=== PATIENT | female | born 1960 | race Caucasian/White ===

== ENCOUNTER → 2020-02-13 14:00 | Outpatient (BNVA) | payer OTHER, SELFPAY | PROVIDERS: Family Provider Family Medicine; PCP Family Medicine; Visit Provider Obstetrics & Gynecology | DX: Z01.419 Encounter for gynecological examination (general) (routine) without abnormal findings (principal); R87.612 Low grade squamous intraepithelial lesion on cytologic smear of cervix (LGSIL); B37.2 Candidiasis of skin and nail; N39.46 Mixed incontinence | CPT/HCPCS: 88175 ==

== ENCOUNTER 2020-05-18 10:50 | Outpatient (CLI) | payer OTHER, SELFPAY ==
--- NOTE | 2020-05-18 10:56 | XR_ITS ---
WS: [id number] ANKLE LEFT TECHNIQUE: 3 views of the left ankle CLINICAL INFORMATION: ANKLE INJURY LEFT COMPARISON: None. FINDINGS: Normal ankle mortise. Talar dome is normal. No visualized ankle fractures. Moderate soft tissue edema Nondisplaced fracture involving the fifth metatarsal base. This was present on the radiograph 2008 IMPRESSION: 1. Nondisplaced fracture involving the fifth metatarsal base. This is present on the foot radiograph in 2008. This can be further evaluated with foot x-ray 2. Diffuse soft tissue edema about the ankle mortise.
--- NOTE | 2020-05-18 13:02 | XR_ITS ---
WS: [id number] FOOT LEFT TECHNIQUE: 3 views of the left foot CLINICAL INFORMATION: ANKLE INJURY LEFT COMPARISON: 2007 FINDINGS: Previously partially healed fracture involving the base of the fifth metatarsal. Associated callus fo rmation. Persistent fracture line visualized in the lateral view likely chronic incomplete healing. XR/XR foot LT min 3V* [id number] IMPRESSION: Chronic appearing incompletely healed fracture involving the base of fifth meta tarsal with callus formation. No definite new fractures.
== END 2020-05-18 10:51 | disposition home or self-care (01) ==
PROVIDERS: Family Provider Family Medicine; PCP Family Medicine; Visit Provider Nurse Practitioner Family
DX: S92.355A Nondisplaced fracture of fifth metatarsal bone, left foot, initial encounter for closed fracture; X58.XXXA Exposure to other specified factors, initial encounter
CPT/HCPCS: 73610; 73630

== ENCOUNTER → 2020-09-06 14:44 | Outpatient (BNVA) | payer OTHER, SELFPAY | PROVIDERS: Family Provider Family Medicine; PCP Family Medicine; Visit Provider Internal Medicine | DX: Z11.59 Encounter for screening for other viral diseases (principal) | CPT/HCPCS: 87635 ==

== ENCOUNTER 2020-09-10 08:10 | Outpatient (CLI) | payer OTHER, SELFPAY ==
--- NOTE | 2020-09-10 09:02 | NMCV_ITS ---
NM arnulfo perf SPECT r/s* [id number] Roxanne Lee Age: 59 Gender: F : 1960 Exam Date: 09/10/2020 09:02 Ordering Phys: Usman Sandhu M.D ([email or web address]) Technologist: KALPANA Joaquin Exam Location: [facility] Indications: Chest pain STRESS TEST Please see separate stress test report in [facility] for full findings IMAGE PROTOCOL Rest/Stress 1 Lexiscan Day Radiopharmaceutical Dose (mCi) Administration Site Administered by Rest: Tc-99m 10.9 IV KALPANA Aguilar Sestamibi Stress:Tc-99m 33.0 IV KALPANA Joaquin Sestamibi Rest: 10-Sep-2020 60 Discovery 630 Stress: 10-Sep-2020 45 Discovery 630 0.4mg Lexiscan. Images obtained in supine and prone position. SPECT RESULTS Technical Quality: Good Raw Data Analysis: Breast attenuation, Soft tissue attenuation Image Corrections: No attenuation or motion correction applied Summed Stress Score: 0 Summed Rest Score: 1 Summed Difference Score: 0 PERFUSION FINDINGS SPECT images demonstrate homogeneous tracer distribution throughout the myocardium. FUNCTIONAL RESULTS (calculated via Gated SPECT) Stress Image LV EF (%): 81 Stress EDV (mL):53 TID: 1.04 Stress ESV (mL):10 FUNCTIONAL FINDINGS: There is normal left ventricular systolic function. IMPRESSIONS 1. Myocardial perfusion imaging is normal with no reversible ischemia noted 2. Normal LV systolic function Usman Sandhu MD (Electronically Signed) Final Date: 13 September 2020 09:09 S
--- NOTE | 2020-09-10 09:02 | ECG_ITS ---
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 Interpretive Statements NAME OF STUDY: LEXISCAN SESTAMIBI STRESS TEST INDICATION: [Chest Pain, ] Procedure: At the baseline the blood pressure was 175/111 mmHg, with a heart rate of 96 bpm. The electrocardiogram showed normal sinus rhythm, normal axis with normal ST and T's. The Lexiscan was infused over the period Of 20 seconds. A total of 0.4 mg of Lexiscan was infused. The stress phase was continued for a total of 5 minutes. Heart rate at the end of stress phase was 108 bpm, with a blood pressure of 200/99 mmHg. The EKG at the peak infusion revealed sinus tachycardia with no significant ST-T wave changes. Sestamibi was injected 20 seconds after Lexiscan infusion. Blood pressure at the end of recovery phase was 175/99 mmHg, with a heart rate of 103 bpm. EKG showed sinus tachycardia without significant ST???T wave changes. Conclusion: 1. Normal EKG response to Lexiscan infusion. 2. No Lexiscan induced chest pain or cardiac arrhythmia. 3. Hypertensive response and normal heart rate response. 4. Sestamibi/sestamibi perfusion scan pending; see separate report. Electronically Signed On 09-11-2020 19:45:39 CDT by Usman Sandhu M.D. [id number]
[2020-09-10 09:03] VITALS: BMI 36.3
[2020-09-10] MEDS: regadenoson 0.4 Mg/5 ml Syringe IVP (10:21)
[2020-09-10 10:45] VITALS: BP 175/99; PULSE 103
== END 2020-09-10 08:11 | disposition home or self-care (01) ==
LOC: CDL 08:15
PROVIDERS: PCP Family Medicine; Visit Provider Internal Medicine
DX: R07.9 Chest pain, unspecified (principal); I65.29 Occlusion and stenosis of unspecified carotid artery
CPT/HCPCS: 78452; 93017; A9500; J2785

== ENCOUNTER → 2020-09-13 14:51 | Outpatient (BNVA) | payer OTHER, SELFPAY | PROVIDERS: PCP Family Medicine; Visit Provider Internal Medicine | DX: E03.9 Hypothyroidism, unspecified (principal); E11.22 Type 2 diabetes mellitus with diabetic chronic kidney disease; E11.65 Type 2 diabetes mellitus with hyperglycemia; E53.8 Deficiency of other specified B group vitamins; E78.00 Pure hypercholesterolemia, unspecified; I10 Essential (primary) hypertension; R10.10 Upper abdominal pain, unspecified | CPT/HCPCS: 99205 ==

== ENCOUNTER 2020-09-16 09:19 | Outpatient (CLI) | payer OTHER, SELFPAY ==
[2020-09-16 10:21] LABS: Estmated Average Glucose 232; Hemoglobin A1C 9.7 % (4.0-6.0)
[2020-09-16 10:28] LABS: Creatinine Urine, Random 164 mg/dL (28-217); Microalbum Creatinine Ratio Ur 12 mg/dL (0-20); Microalbumin Random Urine 2 ug/dL (0-20)
[2020-09-16 10:33] LABS: Alanine Aminotransferase 33 U/L (0-33); Albumin Level 4.4 g/dL (3.5-5.2); Alkaline Phosphatase 123 IU/L (35-105); Anion Gap 18.2 (5-19); Aspartate Amino Transferase 22 U/L (0-32); Blood Urea Nitrogen 33 mg/dL (6-20); Calcium 9.7 mg/dL (8.5-10.5); Carbon Dioxide 26 mmol/L (22-29); Chloride 96 mmol/L (98-107); Globulin 2.7 g/dL (1.3-4.6); Glomerular Filtration Rate 46.3 mL/min (90-130); Glucose 318 mg/dL (65-115); Lipase 57 U/L (13-60); Osmolality Calculated 299 mOsm/kg (285-295); Potassium 5.2 mmol/L (3.5-5.1); Sodium 135 mmol/L (136-145); Thyroid Stimulating Hormone 0.86 uIU/mL (0.27-4.20); Total Bilirubin 0.2 mg/dL (0.15-1.2); Total Protein 7.1 g/dL (6.6-8.7)
[2020-09-16 11:07] LABS: Folate Level > 20.0 ng/mL (4.8-37.3); Free T4 Free Thyroxine 1.56 ng/dL (0.82-1.77); Vitamin B12 > 2000 pg/mL (232-1245)
== END 2020-09-16 09:20 | disposition home or self-care (01) ==
LOC: LAB 09:22
PROVIDERS: PCP Family Medicine; Visit Provider Internal Medicine
DX: E11.9 Type 2 diabetes mellitus without complications (principal); E03.9 Hypothyroidism, unspecified; E53.8 Deficiency of other specified B group vitamins; E78.00 Pure hypercholesterolemia, unspecified; I10 Essential (primary) hypertension; R10.9 Unspecified abdominal pain
CPT/HCPCS: 36415; 80053; 82044; 82607; 82746; 83036; 83690; 84439; 84443

== ENCOUNTER 2020-11-17 12:05 | Outpatient (CLI) | payer OTHER, SELFPAY ==
--- NOTE | 2020-11-17 12:09 | MM_ITS ---
WS: [id number] SCREENING DIGITAL MAMMOGRAM WITH CAD HISTORY: SCREENING COMPARISON: 10/31/2019 and 09/24/2018 Bilateral CC and MLO views submitted. Computer aided detection analyzed. Breast composition: The breasts are almost entirely fatty. No suspicious masses, microcalcifications or architectural distortion. MM/[place] [id number] IMPRESSION: BI-RADS: 1-Negative FOLLOW UP: 1 Year Follow-up
== END 2020-11-17 12:06 | disposition home or self-care (01) ==
LOC: RADSHAW 12:07
PROVIDERS: PCP Family Medicine; Visit Provider Obstetrics & Gynecology
DX: Z12.31 Encounter for screening mammogram for malignant neoplasm of breast (principal)
CPT/HCPCS: 77067

== ENCOUNTER → 2020-12-13 14:29 | Outpatient (BNVA) | payer OTHER, SELFPAY | PROVIDERS: PCP Family Medicine; Visit Provider Internal Medicine | DX: E03.9 Hypothyroidism, unspecified (principal); E11.22 Type 2 diabetes mellitus with diabetic chronic kidney disease; E11.65 Type 2 diabetes mellitus with hyperglycemia; E78.00 Pure hypercholesterolemia, unspecified | CPT/HCPCS: 95251; 99214 ==

== ENCOUNTER 2021-01-25 14:24 | Emergency (ER) | payer OTHER, SELFPAY ==
[2021-01-25 14:34] VITALS: BP 146/78; PULSE 93; RESP 16; TEMP 36.3; O2SAT 99; BMI 36.6
--- NOTE | 2021-01-25 14:49 | ECG_ITS ---
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1960 Requested By: Saad Zendejas I Order Number: [id number] Reading MD: JULIA CHAUHAN Measurements Intervals [place] Rate: 89 P: 19 PA: 148 QRS: -12 QRSD: 81 T: 30 QT: 322 QTc: 392 Interpretive Statements SINUS RHYTHM LOW QRS VOLTAGE IN PRECORDIAL LEADS [QRS DEFLECTION < 1.0 mV IN CHEST LEADS] POSSIBLE ANTERIOR MYOCARDIAL INFARCTION [30 ms Q WAVE IN V3/V4, OR R < 0.2 mV IN V4], OF INDETERMINATE AGE No previous ECG available for comparison Electronically Signed On 01-25-2021 19:52:37 BUSINESS CONSULT by JULIA CHAUHAN [email or web address] [email or web address]'s daughters [facility] [id number] f
--- NOTE | 2021-01-25 16:07 | PC.NURSE ---
PT UPDATED ON WAIT TIME
--- NOTE | 2021-01-25 17:16 | ECG_ITS ---
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1960 Requested By: Rebeca Maier Order Number: [id number] Reading MD: JULIA CHAUHAN Measurements Intervals [place] Rate: 99 P: 42 MI: 160 QRS: 60 QRSD: 81 T: 33 QT: 323 QTc: 415 Interpretive Statements SINUS RHYTHM LOW QRS VOLTAGE IN PRECORDIAL LEADS [QRS DEFLECTION < 1.0 mV IN CHEST LEADS] POSSIBLE ANTERIOR MYOCARDIAL INFARCTION , PROBABLY OLD [30 ms Q WAVE IN V3/V4, OR R < 0.2 mV IN V4] Compared to ECG 01/25/2021 14:42:48 No significant changes Electronically Signed On 01-25-2021 20:00:39 PRIVATE SECTOR EXECUTIVE by JULIA CHAUHAN [id number]
[2021-01-25 18:22] VITALS: PULSE 101; RESP 19; O2SAT 98; O2SAT 99
--- NOTE | 2021-01-25 18:40 | W.ED.GENADLT ---
HPI - General Adult General: Chief complaint: General Medical Stated complaint: SENT BY DR CH/POTASSIUM HIGH Time Seen by Provider: 01/25/21 17:51 Source: patient Mode of arrival: ambulatory Limitations: no limitations History of Present Illness: HPI narrative: 60-year-old female who states she had a potassium checked 1 month ago it was 5.2. 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 She sent her here to be checked further. Patient has no complaints and states she has been feeling fine. She said no vomiting or diarrhea. Denies any pain anywhere. Associated symptoms: Deny chest pain, dyspnea, headache(s), nausea, rash or vomiting Review of Systems Const: Denies: fever(s), chills, body aches or change in appetite Eyes: Denies: blurry vision or eye discomfort ENMT: Denies: throat pain or dental pain Card: Denies: chest pain Resp: Denies: dyspnea GI: Denies: abdominal pain, nausea, vomiting or diarrhea : Denies: dysuria Musc: Denies: neck pain or back pain Skin/Breast: Denies: rash Neuro: Denies: headache(s) Psych: Denies: depression Shar/Lymph: Denies: easy bruising All/Imm: Denies: urticaria PFSH ED PFSH: Medical History Acquired hypothyroidism Carotid stenosis 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 Surgical History History of cholecystectomy (~01/1999) Laparoscopic. Performed by Dr. Dailey at [facility] in [place], [place]. Family History Father Diabetes Hypertension Stroke Hypercholesteremia Social History Smoking and tobacco status: never smoked Alcohol intake: never Physical Exam Const: COMMON NORMALS: no acute distress, patient oriented x3 and healthy appearing HENMT: COMMON NORMALS: normocephalic and atraumatic HEAD & SCALP: normocephalic and atraumatic Eye: COMMON NORMALS: Equal, round and reactive pupils present and EOMs intact bilaterally PUPIL: Yes Equal, round and reactive pupils present Neck/C-Spine: COMMON NORMALS: full ROM and supple Chest: COMMONS NORMALS: normal inspection of the chest and normal palpation of entire chest wall Resp: COMMON NORMALS: normal respiratory effort, No retractions, No use of accessory muscles and clear to auscultation bilaterally AUSCULTATION: clear to auscultation bilaterally Cardio: COMMON NORMALS: regular rate, regular rhythm and No murmurs present (Cardio) RATE: regular rate RHYTHM: regular rhythm GI: COMMON NORMALS: Normal to inspection, nondistended, normoactive bowel sounds present, Soft to palpation, non-tender and no masses PALPATION: Yes Soft to palpation Extremity: COMMON NORMALS: normal to inspection and full ROM Neuro: COMMON NORMALS: patient oriented x3, moves all extremities and no focal motor deficits Psych: COMMON NORMALS: mental status grossly normal, Normal thought process present and cooperative THOUGHT PROCESS: Normal thought process present Skin: COMMON NORMALS: no rashes or lesions noted and no wounds GENERAL SKIN EXAM: no rashes or lesions noted Course Vital Signs: Vital signs: Vital Signs Temperature 97.3 F L 01/25/21 14:34 Pulse Rate 101 H 01/25/21 18:22 Respiratory Rate 19 H 01/25/21 18:22 Blood Pressure 146/78 01/25/21 14:34 Pulse Oximetry 99 01/25/21 18:22 MDM - General Adult MDM Narrative: Medical decision making narrative: 22 presents here with hyperkalemia in office today. I believe is likely lab error as her potassium here is 4.4. She has no kidney issues. She is has no medical complaints. She is well-appearing here and is stable for discharge is to follow-up with her PCP as scheduled and return if worsening. Lab Data: Labs: Lab Results 01/25/21 01/25/21 Range/Units 18:20 18:20 WBC 9.3 (4.0-10.0) 10^3/ uL RBC 5.06 (4.1-5.3) 10^6/u L Hgb 14.3 (11.5-15.3) g/dL Hct 44.0 (37.0-47.0) % MCV 87.0 (81-99) fL MCH 28.3 (28.0-34.0) pg MCHC 32.5 (30.0-36.0) g/dL RDW 15.7 H (12.1-15.1) % Plt Count 293 (130-400) 10^3/c mm MPV 10.3 (7.4-10.4) fL Neut % (Auto) 61.1 % Lymph % (Auto) 25.3 % [place] % (Auto) 10.9 % Eos % (Auto) 1.9 % Baso % (Auto) 0.5 % Neut # (Auto) 5.70 (1.8-7.7) 10^3/u L Lymph # (Auto) 2.4 (0.8-4.8) 10^3/u L [place] # (Auto) 1.0 H (0.2-0.9) 10^3/u L Eos # (Auto) 0.2 (0.0-0.8) 10^3/u L Baso # (Auto) 0.1 (0.0-0.1) 10^3/u L Nucleated RBC % (a uto) 0 % Nucleated RBCs # 0.0 /100WBC Sodium 137 (136-145) mmol/L Potassium 4.4 (3.5-5.1) mmol/L Chloride 97 L (98-107) mmol/L Carbon Dioxide 27 (22-29) mmol/L Anion Gap 17.4 (5-19) BUN 31 H (6-20) mg/dL Creatinine 1.2 H (0.5-0.9) mg/dL GFR Calculation 46.1 L (90-130) mL/min Glucose 109 (65-115) mg/dL Calculated Osmolal ity 291 (285-295) mOsm/k g Calcium 10.5 (8.5-10.5) mg/dL Total Bilirubin 0.3 (0.15-1.2) mg/dL AST 18 (0-32) U/L ALT 22 (0-33) U/L Alkaline Phosphata se 85 (35-105) IU/L Total Protein 7.6 (6.6-8.7) g/dL Albumin 4.9 (3.5-5.2) g/dL Globulin 2.7 (1.3-4.6) g/dL EKG Data^: EKG 1: Attestation: I personally reviewed and interpreted this EKG as follows: EKG interpretation date: 01/25/21 EKG interpretation time: 14:42 Interpretation: nsr hr [address] or t wave abnormalities qrs 81 qtc 368 Discharge Plan Discharge Patient Disposition: Home Clinical Impression: Abnormal laboratory test Condition: Stable Prescriptions: No Action glimepiride 4 mg tablet 4 mg PO DAILY Qty: 90 RF: 3 fluconazole 150 mg tablet 150 mg PO .MONTHLY Qty: 3 RF: 4 oxybutynin chloride 10 mg tablet extended release 24hr 10 mg PO QDAY Qty: 90 RF: 4 nystatin 100,000 unit/gram powder 1 applic TOPICAL BID Qty: 60 RF: 12 spironolacton-hydrochlorothiaz [Aldactazide] 25-25 mg tablet 1 tab PO QDAY RF: 0 zolpidem 10 mg tablet, sublingual 10 mg SUBLINGUAL .BEDTIME RF: 0 alprazolam 0.25 mg tablet 0.25 mg PO Q6H PRNRF: 0 cyanocobalamin (vitamin B-12) [Vitamin B-12] 1,000 mcg tablet extended release 1,000 mcg PO QDAY RF: 0 aspirin 81 mg tablet,delayed release (DR/EC) 81 mg PO QDAY RF: 0 Women's 50 Plus Multivitamin 400 mcg-500 mg calcium-20 mcg tablet PO DAILY RF: 0 NUFLO tablet PO DAILY RF: 0 lisinopril 40 mg tablet 40 mg PO QDAY RF: 0 CALCIUM PO DAILY RF: 0 VITAMIN C PO DAILY RF: 0 VITAMIN D PO DAILY RF: 0 omeprazole 20 mg capsule,delayed release(DR/EC) 20 mg PO BID RF: 0 metformin 850 mg tablet 850 mg PO DAILY RF: 0 (DME) Dexcom G6 Transmitter Device See Rx Instructions .ROUTE .MEDSUPPLY Qty: 1 RF: 3 (DME) Dexcom G6 Sensor Device See Rx Instructions .ROUTE .MEDSUPPLY Qty: 9 RF: 3 nitroglycerin 0.4 mg tablet, sublingual 0.4 mg SUBLINGUAL Q5M PRN (Reason: chest pain) Qty: 60 RF: 2 Ozempic 0.25 mg or 0.5 mg(2 mg/1.5 mL) pen injector 1 mg SUBCUT .once weekly Qty: 12 RF: 3 atorvastatin 80 mg tablet 80 mg PO .BEDTIME Qty: 90 RF: 3 levothyroxine [Synthroid] 100 mcg tablet 100 mcg PO QDAY Qty: 90 RF: 3 Jardiance 10 mg tablet 20 mg PO DAILY Qty: 180 RF: 3 Discharge Orders: Discharge ED (Routine); Ordered 01/25/21 Ordered By: Gregory Howard Referrals: Rocael Montaño, [Primary Care Provider] - 1-3 days Discharge Diet: Advance as tolerated Discharge Activity: Resume usual activity Patient Instructions: Hyperkalemia (ED) Coding Level of Care Code ED Regulatory Services Consultant for Luis Mg Fwd Exam Comprehensive
[2021-01-25 18:47] LABS: Basophils # 0.1 10^3/uL (0.0-0.1); Basophils % 0.5 %; Eosinophils # 0.2 10^3/uL (0.0-0.8); Eosinophils % 1.9 %; Hemoglobin 14.3 g/dL (11.5-15.3); Lymphocytes # 2.4 10^3/uL (0.8-4.8); Lymphocytes % 25.3 %; Mean Corpuscular HGB Conc 32.5 g/dL (30.0-36.0); Mean Corpuscular Hemoglobin 28.3 pg (28.0-34.0); Mean Platelet Volume 10.3 fL (7.4-10.4); Monocytes % 10.9 %; Neutrophils % 61.1 %; Nucleated Red Blood Cells % 0 %; Platelet Count 293 10^3/cmm (130-400); Red Blood Count 5.06 10^6/uL (4.1-5.3); Red Cell Distribution Width 15.7 % (12.1-15.1); White Blood Count 9.3 10^3/uL (4.0-10.0)
[2021-01-25 19:02] LABS: Alanine Aminotransferase 22 U/L (0-33); Albumin Level 4.9 g/dL (3.5-5.2); Alkaline Phosphatase 85 IU/L (35-105); Anion Gap 17.4 (5-19); Aspartate Amino Transferase 18 U/L (0-32); Blood Urea Nitrogen 31 mg/dL (6-20); Calcium 10.5 mg/dL (8.5-10.5); Carbon Dioxide 27 mmol/L (22-29); Chloride 97 mmol/L (98-107); Globulin 2.7 g/dL (1.3-4.6); Glomerular Filtration Rate 46.1 mL/min (90-130); Glucose 109 mg/dL (65-115); Osmolality Calculated 291 mOsm/kg (285-295); Potassium 4.4 mmol/L (3.5-5.1); Sodium 137 mmol/L (136-145); Total Bilirubin 0.3 mg/dL (0.15-1.2); Total Protein 7.6 g/dL (6.6-8.7)
[2021-01-25 19:40] VITALS: BP 108/83; PULSE 94; RESP 18; O2SAT 99
== END 2021-01-25 19:40 | disposition home or self-care (01) ==
PROVIDERS: Nurse Practitioner Family; Emergency Provider Emergency Medicine; PCP Family Medicine
DX: R79.9 Abnormal finding of blood chemistry, unspecified (principal); Z79.82 Long term (current) use of aspirin; Z79.84 Long term (current) use of oral hypoglycemic drugs; I10 Essential (primary) hypertension
CPT/HCPCS: 80053; 85025; 93005; 99283

== ENCOUNTER → 2021-02-18 14:15 | Outpatient (BNVA) | payer OTHER, SELFPAY | PROVIDERS: PCP Family Medicine; Visit Provider Obstetrics & Gynecology | DX: R87.612 Low grade squamous intraepithelial lesion on cytologic smear of cervix (LGSIL) (principal); B37.2 Candidiasis of skin and nail; R32 Unspecified urinary incontinence | CPT/HCPCS: 88175 ==

== ENCOUNTER → 2021-04-19 11:48 | Outpatient (BNVA) | payer OTHER, SELFPAY | PROVIDERS: PCP Family Medicine; Visit Provider Podiatrist Foot & Ankle Surgery | DX: M21.42 Flat foot [pes planus] (acquired), left foot (principal); M79.672 Pain in left foot | CPT/HCPCS: 73610; 73630 ==

== ENCOUNTER 2021-07-06 07:07 | Outpatient (CLI) | payer OTHER, SELFPAY ==
[2021-07-06 07:30] VITALS: BP 138/76; PULSE 104; RESP 20; TEMP 36.6; O2SAT 98
[2021-07-06 08:41] VITALS: BP 116/73; PULSE 104; TEMP 36.7; O2SAT 97
== END 2021-07-06 07:08 | disposition home or self-care (01) ==
LOC: OPS 07:10
PROVIDERS: PCP Family Medicine; Visit Provider Clinical Nurse Specialist Adult Health
DX: U07.1 COVID-19 (principal)
CPT/HCPCS: 96365

== ENCOUNTER 2021-12-19 16:07 | Outpatient (CLI) | payer OTHER, SELFPAY ==
--- NOTE | 2021-12-19 16:11 | XR_ITS ---
WS: [id number] ELBOW RIGHT TECHNIQUE: 3 views of the right elbow CLINICAL INFORMATION: ELBOW PAIN,RIGHT COMPARISON: 011 FINDINGS: Mild soft tissue edema. Small intra-articular loose fragment measuring 3 mm is new since 2010. Recomm end further evaluation with CT to assess for small occult fracture. This may represent a small corono id process fracture but indeterminant. XR/XR elbow RT min 3V* [id number] IMPRESSION: Small intra-articular bony fragment measuring 3 mm suspicious for tiny nondispl aced fracture fragment. Recommend further evaluation with CT.
== END 2021-12-19 16:08 | disposition home or self-care (01) ==
LOC: RAD 16:08
PROVIDERS: PCP Family Medicine; Visit Provider Electrodiagnostic Medicine
DX: M25.521 Pain in right elbow (principal); W19.XXXA Unspecified fall, initial encounter
CPT/HCPCS: 73080

== ENCOUNTER 2021-12-20 13:25 | Outpatient (CLI) | payer OTHER, SELFPAY ==
--- NOTE | 2021-12-20 13:44 | CT_ITS ---
WS: [id number] NONCONTRAST CT OF THE RIGHT ELBOW TECHNIQUE: Noncontrast CT of the right elbow with coronal and sagittal reformatted images. CLINICAL INFORMATION: NONDISPLACED FX/R ELBOW PAIN COMPARISON: Radiograph December 19, 2021 DLP: 97.[address] scans at [facility] use at least one of these dose optimization techniques: automated e xposure control; mA and/or kV adjustment per patient size (includes targeted exams where dose is matc hed to clinical indication); or iterative reconstruction. FINDINGS: Moderate joint effusion with distention of the anterior and posterior fat pads. Soft tissue edema ove rlying the olecranon. Olecranon enthesophyte. Again seen is the tiny intra-articular avulsion as seen on the recent radiograph. This is adjacent to the coronoid process of the ulna compatible with a tin y avulsion. This is interposed between the radial head and coronoid process. Tiny avulsion measures 2 mm. In addition, there is a subtle nondisplaced supracondylar and condylar fracture extending through the olecranon fossa with visualized fracture lines. No significant displacement. Nondisplaced fracture e xtends through the olecranon fossa and extends medially and laterally into the epicondyles. No defini te involvement of the articular surface. Radial head appears normal. IMPRESSION: 1. 2 mm tiny avulsion from the coronoid process seen on the recent radiograph. This is interposed be tween the radial head and coronoid process. 2. Additional subtle nondisplaced fracture involving the supracondylar and condylar humerus extendin g into the epicondyles bilaterally. This traverses the olecranon fossa. No displacement. 3. Condylar fracture does not appear to involve the articular surface. 4. Moderate joint effusion.
== END 2021-12-20 13:26 | disposition home or self-care (01) ==
LOC: RAD 13:27
PROVIDERS: PCP Family Medicine; Visit Provider Electrodiagnostic Medicine
DX: S52.044A Nondisplaced fracture of coronoid process of right ulna, initial encounter for closed fracture (principal); S42.414A Nondisplaced simple supracondylar fracture without intercondylar fracture of right humerus, initial encounter for closed fracture; W19.XXXA Unspecified fall, initial encounter; M25.421 Effusion, right elbow
CPT/HCPCS: 73200

== ENCOUNTER → 2021-12-21 10:14 | Outpatient (BNVA) | payer OTHER, SELFPAY | PROVIDERS: PCP Family Medicine; Referring Provider Family Medicine; Visit Provider Specialist | DX: M25.521 Pain in right elbow (principal) | CPT/HCPCS: 73080 ==

== ENCOUNTER 2021-12-21 14:26 | Outpatient (CLI) | payer OTHER, SELFPAY | END 2021-12-21 14:27 | disposition home or self-care (01) | LOC: SPT 14:27 | PROVIDERS: PCP Family Medicine; Visit Provider Specialist | DX: Z46.89 Encounter for fitting and adjustment of other specified devices (principal); S42.401D Unspecified fracture of lower end of right humerus, subsequent encounter for fracture with routine healing; X58.XXXD Exposure to other specified factors, subsequent encounter | CPT/HCPCS: 97760; L3761 ==

== ENCOUNTER → 2022-01-09 15:35 | Outpatient (BNVA) | payer OTHER, SELFPAY | PROVIDERS: PCP Family Medicine; Visit Provider Specialist | DX: Z47.89 Encounter for other orthopedic aftercare (principal); S52.201D Unspecified fracture of shaft of right ulna, subsequent encounter for closed fracture with routine healing; S42.411D Displaced simple supracondylar fracture without intercondylar fracture of right humerus, subsequent encounter for fracture with routine healing; W18.30XD Fall on same level, unspecified, subsequent encounter | CPT/HCPCS: 73080 ==

== ENCOUNTER → 2022-02-06 15:55 | Outpatient (BNVA) | payer OTHER, SELFPAY | PROVIDERS: PCP Family Medicine; Visit Provider Specialist | DX: M25.521 Pain in right elbow (principal); S52.201A Unspecified fracture of shaft of right ulna, initial encounter for closed fracture; S42.411A Displaced simple supracondylar fracture without intercondylar fracture of right humerus, initial encounter for closed fracture; X58.XXXA Exposure to other specified factors, initial encounter | CPT/HCPCS: 73080 ==

== ENCOUNTER → 2022-02-20 09:34 | Outpatient (BNVA) | payer OTHER, SELFPAY | PROVIDERS: PCP Family Medicine; Visit Provider Obstetrics & Gynecology | DX: Z01.419 Encounter for gynecological examination (general) (routine) without abnormal findings (principal); B37.2 Candidiasis of skin and nail; R32 Unspecified urinary incontinence | CPT/HCPCS: 87624 ==

== ENCOUNTER 2022-03-14 08:13 | Outpatient (CLI) | payer OTHER, SELFPAY ==
--- NOTE | 2022-03-14 08:22 | MM_ITS ---
WS: [id number] VIEWS: MLO and CC views both breasts. 3D digital tomosynthesis is also included in this exam. Comparison made with prior exam of 07/02/2015, 07/25/2016, 09/18/2017, 09/24/2018, 11/17/2020.. Findings: There was no sign of mass, architectural distortion or suspicious calcification in either breast. Fa tty MM/[place] [id number] Impression: BI-RADS: 2-Benign FOLLOW-UP: 1 Year Follow-up This mammogram was also analyzed by the Computer Aided Detection System R2 Imag e Placement Director.
== END 2022-03-14 08:14 | disposition home or self-care (01) ==
LOC: RADSHAW 08:15
PROVIDERS: PCP Family Medicine; Visit Provider Obstetrics & Gynecology
DX: Z12.31 Encounter for screening mammogram for malignant neoplasm of breast (principal)
CPT/HCPCS: 77063; 77067

== ENCOUNTER → 2023-01-04 11:23 | Outpatient (BNVA) | payer OTHER, SELFPAY | PROVIDERS: PCP Family Medicine; Visit Provider Family Medicine | DX: G47.00 Insomnia, unspecified (principal); M19.90 Unspecified osteoarthritis, unspecified site; F41.9 Anxiety disorder, unspecified; E53.8 Deficiency of other specified B group vitamins; I10 Essential (primary) hypertension; E78.00 Pure hypercholesterolemia, unspecified; E03.9 Hypothyroidism, unspecified; E11.649 Type 2 diabetes mellitus with hypoglycemia without coma; E11.22 Type 2 diabetes mellitus with diabetic chronic kidney disease; E11.65 Type 2 diabetes mellitus with hyperglycemia; R10.9 Unspecified abdominal pain | CPT/HCPCS: 80053; 80061; 82607; 83036; 84443; 85025 ==

== ENCOUNTER → 2023-02-26 07:51 | Outpatient (BNVA) | payer OTHER, SELFPAY | PROVIDERS: PCP Family Medicine; Visit Provider Obstetrics & Gynecology | DX: Z01.419 Encounter for gynecological examination (general) (routine) without abnormal findings (principal); B37.2 Candidiasis of skin and nail; R32 Unspecified urinary incontinence | CPT/HCPCS: 87624 ==

== ENCOUNTER 2023-03-16 08:00 | Outpatient (CLI) | payer OTHER, SELFPAY ==
--- NOTE | 2023-03-16 08:55 | MM_ITS ---
WS: [id number] . BILATERAL SCREENING DIGITAL TOMOSYNTHESIS MAMMOGRAM WITH CAD HISTORY: SCREENING COMPARISON: 03/14/2022, 11/17/2020, 10/31/2019 Bilateral CC and MLO views with tomosynthesis and synthetic mammography submitted. Computer aided det ection analyzed. Breast composition: The breasts are almost entirely fatty. No suspicious masses, microcalcifications or architectural distortion. Asymmetry posterior to the LEFT nipple is stable over multiple prior exa ms. MM/[place] [id number] IMPRESSION: BI-RADS: 2-Benign FOLLOW UP: 1 Year Follow-up
== END 2023-03-16 08:01 | disposition home or self-care (01) ==
LOC: RAD 08:03
PROVIDERS: PCP Family Medicine; Visit Provider Obstetrics & Gynecology
DX: Z12.31 Encounter for screening mammogram for malignant neoplasm of breast (principal)
CPT/HCPCS: 77063; 77067

== ENCOUNTER → 2023-06-18 08:23 | Outpatient (BNVA) | payer OTHER, SELFPAY | PROVIDERS: PCP Family Medicine; Visit Provider Family Medicine | DX: E03.9 Hypothyroidism, unspecified (principal); E11.22 Type 2 diabetes mellitus with diabetic chronic kidney disease; E11.649 Type 2 diabetes mellitus with hypoglycemia without coma; E11.65 Type 2 diabetes mellitus with hyperglycemia; E78.00 Pure hypercholesterolemia, unspecified | CPT/HCPCS: 80053; 80061; 82043; 83036; 84439; 84443; 84480 ==

== ENCOUNTER 2023-06-22 07:18 | Outpatient (CLI) | payer OTHER, SELFPAY ==
[2023-06-22 08:02] LABS: Anion Gap 19.1 (5-19); Blood Urea Nitrogen 28 mg/dL (8-23); Calcium 10.9 mg/dL (8.5-10.5); Carbon Dioxide 26 mmol/L (22-29); Chloride 96 mmol/L (98-107); Glomerular Filtration Rate 32.9 mL/min (90-130); Glucose 142 mg/dL (65-115); Osmolality Calculated 290 mOsm/kg (285-295); Potassium 5.1 mmol/L (3.5-5.1); Sodium 136 mmol/L (136-145)
== END 2023-06-22 07:19 | disposition home or self-care (01) ==
PROVIDERS: PCP Family Medicine; Visit Provider Internal Medicine
DX: R30.0 Dysuria (principal); E03.9 Hypothyroidism, unspecified; R10.9 Unspecified abdominal pain
CPT/HCPCS: 36415; 80048; 81003; 87086

== ENCOUNTER 2023-07-16 16:35 | Outpatient (CLI) | payer OTHER, SELFPAY ==
[2023-07-16 18:00] LABS: Anion Gap 15.7 (5-19); Blood Urea Nitrogen 37 mg/dL (8-23); Calcium 10.4 mg/dL (8.5-10.5); Carbon Dioxide 27 mmol/L (22-29); Chloride 97 mmol/L (98-107); Free T4 Free Thyroxine 1.84 ng/dL (0.82-1.77); Glomerular Filtration Rate 38.4 mL/min (90-130); Glucose 118 mg/dL (65-115); Osmolality Calculated 290 mOsm/kg (285-295); Potassium 4.7 mmol/L (3.5-5.1); Sodium 135 mmol/L (136-145)
== END 2023-07-16 16:36 | disposition home or self-care (01) ==
PROVIDERS: PCP Family Medicine; Visit Provider Internal Medicine
DX: E11.649 Type 2 diabetes mellitus with hypoglycemia without coma (principal); E11.22 Type 2 diabetes mellitus with diabetic chronic kidney disease; E11.65 Type 2 diabetes mellitus with hyperglycemia; E03.9 Hypothyroidism, unspecified; E78.00 Pure hypercholesterolemia, unspecified
CPT/HCPCS: 36415; 80048; 84439

== ENCOUNTER → 2023-08-30 11:41 | Outpatient (BNVA) | payer OTHER, SELFPAY | PROVIDERS: PCP Family Medicine; Visit Provider Nurse Practitioner | DX: M25.561 Pain in right knee (principal) | CPT/HCPCS: 73562 ==

== ENCOUNTER → 2023-09-12 14:47 | Outpatient (BNVA) | payer OTHER, SELFPAY | PROVIDERS: PCP Family Medicine; Referring Provider Nurse Practitioner; Visit Provider Specialist | DX: S89.91XA Unspecified injury of right lower leg, initial encounter; X50.9XXA Other and unspecified overexertion or strenuous movements or postures, initial encounter | CPT/HCPCS: 73560; 73565 ==

== ENCOUNTER → 2023-09-17 14:06 | Outpatient (BNVA) | payer OTHER, SELFPAY | PROVIDERS: PCP Family Medicine; Visit Provider Internal Medicine | DX: M25.569 Pain in unspecified knee (principal); E03.9 Hypothyroidism, unspecified; E11.22 Type 2 diabetes mellitus with diabetic chronic kidney disease; E11.65 Type 2 diabetes mellitus with hyperglycemia; M17.11 Unilateral primary osteoarthritis, right knee; M25.561 Pain in right knee; G89.29 Other chronic pain | CPT/HCPCS: 36415; 80053; 80061; 81003; 82044; 83036; 84439; 84443; 85025 ==

== ENCOUNTER 2023-10-01 16:50 | Outpatient (CLI) | payer OTHER, SELFPAY ==
--- NOTE | 2023-10-01 17:00 | CT_ITS ---
WS: [id number] CT RIGHT knee, noncontrast HISTORY: S89.90XA - Unspecified injury of unspecified lower leg, i... TECHNIQUE: Protocol for [facility] total knee replacement has been obtained. This includes axial imaging th rough the RIGHT hip, RIGHT knee and RIGHT ankle. DLP: 990.07 mGy.cm COMPARISON: Radiographs 09/12/2023 Pelvis: No fractures or bone destruction. Extensive calcification in the femoral arteries. RIGHT knee: Moderate to severe tricompartment osteoarthritis. Large osteophytes and joint space narro wing. Small suprapatellar joint effusion. Heavy calcification in the popliteal artery. There is also a moderate size thick-walled Luna's cyst. RIGHT ankle: Negative. No destructive bone lesions. IMPRESSION: CT imaging provided for [facility] robotic total knee replacement.
== END 2023-10-01 16:51 | disposition home or self-care (01) ==
PROVIDERS: PCP Family Medicine; Visit Provider Specialist
DX: S89.90XA Unspecified injury of unspecified lower leg, initial encounter (principal); X58.XXXA Exposure to other specified factors, initial encounter; M17.0 Bilateral primary osteoarthritis of knee
CPT/HCPCS: 36415; 73700; 80053; 80061; 81003; 82044; 83036; 84439; 84443; 85025

== ENCOUNTER 2023-10-03 17:22 | Outpatient (CLI) | payer OTHER, SELFPAY ==
[2023-10-03 21:36] LABS: Free T4 Free Thyroxine 1.81 ng/dL (0.82-1.77)
== END 2023-10-03 17:23 | disposition home or self-care (01) ==
PROVIDERS: PCP Family Medicine; Visit Provider Internal Medicine
DX: E03.9 Hypothyroidism, unspecified (principal)
CPT/HCPCS: 36415; 84439

== ENCOUNTER → 2023-10-10 09:03 | Outpatient (BNVA) | payer OTHER, SELFPAY | PROVIDERS: PCP Family Medicine; Visit Provider Family Medicine | DX: Z01.818 Encounter for other preprocedural examination (principal); Z79.899 Other long term (current) drug therapy | CPT/HCPCS: 81003; 87077; 87086; 87184 ==

== ENCOUNTER 2023-11-15 13:04 | Observation (INO) | payer OTHER, SELFPAY ==
[2023-11-15] VITALS (18 sets, daily range): BP systolic 89–122; BP diastolic 57–70; PULSE 76–95; RESP 14–20; TEMP 36.1–36.8; O2SAT 95–100
[2023-11-15 08:25] LABS: Glucose Point of Care 103 mg/dL (70-110)
--- NOTE | 2023-11-15 08:29 | P.ANESASSM_ITS ---
Pre-Anesthetic Assessment Height/Weight: Height 1.7 m Temp Pulse Resp BP Pulse Ox O2 Del Method 97 F L 90 18 118/68 100 Room Air, Nasal Cannula 11/15/23 08:07 11/15/23 08:07 11/15/23 08:07 11/15/23 08:07 11/15/23 08:07 11/15/23 08:08 Operation Date: 11/15/23 09:00 Proposed Procedures p RIGHT TOTAL KNEE ARTHROPLASTY WITH AMANDA GUIDANCE 54301,M17.10(Right) - Ofe Rodrigues MD Familial anesthetic complications: none Was Beta Zeenat taken within 24 hours: N/A Was Clonidine taken within 24 hours: N/A Last intake: Intake Last Liquid Date 11/14/23 Last Liquid Time 20:30 Last Solid Date 11/14/23 Last Solid Time 20:30 Social No alcohol and No tobacco Exam alert, oriented x 3, clear to auscultation bilaterally and regular rate & rhythm Airway Submandibular: within normal limits Cervical ROM: within normal limits Mallampati: Class II Dentition: full CV/HEM Peripheral Vascular Disease GI Gastroesophageal Reflux Disease Metabolic Diabetes Mellitus, Hyperlipidemia and Thyroid Disease [facility] Osteoarthritis/DJD Neuropsych Anxiety Anesthetic Plan ASA status: 3 Anesthesia: Regional (specify below) (SAB with adductor blk) Medications/Allergies Home Medications Medication Instructions Recorded Confirmed Last Taken Type CALCIUM 500 mg PO DAILY 12/22/19 11/14/23 11/13/23 History VITAMIN C 1,000 mg PO DAILY 12/22/19 11/14/23 11/13/23 History VITAMIN D 2,000 mg PO DAILY 12/22/19 11/14/23 11/13/23 History aspirin 81 mg tablet,delayed 81 mg PO QDAY 12/22/19 11/14/23 11/08/23 History release uyzldkrj-anq-ilvit ac 400 1 tab PO DAILY 12/22/19 11/14/23 11/13/23 History mcg-calcium carb 500 mg-vit K1 20 mcg tablet (Women's 50 Plus Multivitamin) flash glucose scanning reader #1 ea 05/16/22 11/12/23 Unknown Rx (FreeStyle Cameron 2 Mode) glimepiride 4 mg tablet 4 mg PO DAILY #90 tabs 04/02/23 11/14/23 11/12/23 Rx lisinopril 40 mg tablet 40 mg PO QDAY #90 tabs 05/21/23 11/14/23 11/14/23 Rx Custom Orthotic AFO Brace #1 ea 07/16/23 11/12/23 Unknown Rx zolpidem 10 mg tablet 10 mg PO .qhs #30 tabs 07/16/23 11/14/23 11/14/23 Rx flash glucose sensor (FreeStyle #9 kits 07/18/23 11/12/23 Unknown Rx Cameron 2 Sensor kit) atorvastatin 80 mg tablet 80 mg PO .BEDTIME #90 tabs 08/14/23 11/14/23 11/14/23 Rx spironolactone 25 1 tab PO DAILY 90 days #90 tabs 09/26/23 11/14/23 11/15/23 Rx mg-hydrochlorothiazide 25 mg tablet biotin 10,000 mcg capsule 1 cap PO DAILY 10/09/23 11/14/23 11/13/23 History mupirocin 2 % topical ointment 1 applic topical BID #22 grams 10/12/23 11/14/23 11/13/23 Rx alprazolam 0.25 mg tablet 0.25 mg PO QID PRN anxiety #120 10/15/23 11/14/23 11/14/23 Rx tabs levothyroxine 75 mcg tablet 75 mcg PO QDAY #90 tabs 10/15/23 11/14/23 11/15/23 Rx tramadol 50 mg tablet 50 mg PO BID PRN pain #60 tabs 10/15/23 11/14/23 11/14/23 Rx nystatin 100,000 unit/gram topical See Rx Instructions .Route 11/07/23 11/14/23 Unknown Rx powder ([facility]) .COMPLEX #60 grams oxybutynin chloride 10 mg 10 mg PO QDAY #90 tabs 11/07/23 11/14/23 11/14/23 Rx tablet,extended release 24 hr omeprazole 20 mg capsule,delayed See Rx Instructions .Route 11/12/23 11/14/23 11/15/23 Rx release .COMPLEX #180 caps fluconazole 150 mg tablet See Rx Instructions .Route 11/14/23 Unknown History .COMPLEX PRN yeast loratadine 10 mg tablet (Claritin) 10 mg PO DAILY 11/14/23 11/14/23 11/15/23 History loratadine 10 mg tablet (Claritin) mg 11/14/23 Unknown History tirzepatide 15 mg/0.5 mL See Rx Instructions .Route 11/14/23 11/14/23 11/06/23 Rx subcutaneous pen injector .COMPLEX #2 mL (Mounjaro) Allergies Allergy/AdvReac Type Severity Reaction Status Date / Time No Known Allergies Allergy Verified 11/12/23 08:02 [facility] Anesthesia Medical History 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 Performed by Dr. Dailey at [facility] [place] in [place], [place]. Family History Father Diabetes Hypertension Stroke Hypercholesteremia Social History Substance/Drug Use: never Data Anesthesia Cardiac Studies: Sestamibi Stress Test (Cardiology) 09/10
[2023-11-15] MEDS: sodium chloride 0.9% 1,000 ML 30 ML IV (08:35)
[2023-11-15] MEDS: acetaminophen 1,000 MG/100 ML PIGGYBACK 400 MG IV ×3 (08:36→21:35)
[2023-11-15] MEDS: CELEcoxib 200 mg Capsule 400 MG PO (08:36)
[2023-11-15] MEDS: gabapentin 300 mg Capsule PO (08:37)
[2023-11-15 09:01] LABS: Blood Urea Nitrogen 51 mg/dL (8-23); Calcium 11.6 mg/dL (8.5-10.5); Carbon Dioxide 28 mmol/L (22-29); Chloride 96 mmol/L (98-107); Glomerular Filtration Rate 35.3 mL/min (90-130); Glucose 94 mg/dL (65-115); Osmolality Calculated 297 mOsm/kg (285-295); Sodium 137 mmol/L (136-145)
--- NOTE | 2023-11-15 09:04 | P.HPUD_ITS ---
Surgery/Procedure H&P Update DATE OF PROCEDURE: November 15, 2023 DATE H&P PERFORMED: 11/12/23 H&P UPDATE INFORMATION: I have reviewed H&P completed within last 30 days, I have examined patient prior to procedure, No changes to prior documentation and H&P is in [facility] [place] on date indicated PLANNED PROCEDURE: Operation Date: 11/15/23 09:00 Proposed Procedures p RIGHT TOTAL KNEE ARTHROPLASTY WITH AMANDA GUIDANCE 52009,M17.10(Right) - Ofe Rodrigues MD Related Problem List Diagnoses (1) Osteoarthritis of right knee: Qualifiers: Osteoarthritis type: primary Qualified Code(s): M17.11 - Unilateral primary osteoarthritis, right knee
[2023-11-15 09:07] LABS: Anion Gap 17.5 (5-19); Potassium 4.5 mmol/L (3.5-5.1)
[2023-11-15] MEDS: ceFAZolin 2,000 MG in sodium chloride 0.9% (plus) 50 ML 100 MG IV ×2 (09:08→17:22)
[2023-11-15] MEDS: tranexamic acid 1,000 mg/10mL SDV 1000 MG IV (09:56)
[2023-11-15] MEDS: thrombin 5,000 unit SDV 5000 UNIT XX (10:16)
[2023-11-15] MEDS: vancomycin 1,000 MG SDV 1000 MG XX (10:17)
[2023-11-15] MEDS: BUPivacaine 0.5% INJ 30 mL 20 ML INJECTION (10:18)
[2023-11-15] MEDS: BUPivacaine liposome 13.3 mg/mL SDV 10 mL 266 MG INFILTRATI (10:18)
[2023-11-15] MEDS: ceFAZolin 1,000 mg SDV 2000 MG IRRIGATION (10:19)
--- NOTE | 2023-11-15 10:51 | ANES.PROC ---
Anesthesia Procedures Procedure/Date: 11/15/23 Nerve Block ^: Nerve Block 1: Main Anesthesia: spinal anesthesia block Time Out Performed: Yes Consent: requested by attending/covering physician, from patient, risks and benefits reviewed and patient agrees to proceed Nerve block location: adductor canal (right) Anesthesia monitors applied: pulse oximetry, EKG, BP cuff and oxygen Nerve block position: supine Anesthetic Used: ropivicaine 0.5% Amount of anesthesia used (mL): 20 Ultrasound used to: recognize landmarks Nerve Stimulator Used?: No Interscalene/Femoral BLK: 4 stimuplex 21 g needle used for position and inplane approach Injection: neg aspiration of heme Patient Tolerated Procedure: well Complications: none
--- NOTE | 2023-11-15 12:46 | XRR_ITS ---
PROCEDURE INFORMATION: Exam: XR Right Knee Exam date and time: 11/15/2023 12:48 PM Age: 63 years old Clinical indication: Device placement; Joint replacement hardware; Prior surgery; Surgery date: Post-operative (0-2 days); Surgery type: Right total knee arthroplasty; Additional info: Status post right total knee arthroplasty TECHNIQUE: Imaging protocol: Radiologic exam of the right knee. Views: 1 or 2 views. COMPARISON: CT knee RT [facility] [id number] 10/01/2023 5:04 PM FINDINGS: Bones/joints: Status post right knee total arthroplasty. No radiographic evidence of hardware fracture or perihardware lucency. Soft tissues: Midline anterior cutaneous ajit. Recent postsurgical changes of the superficial soft tissues, with expected edema and with subcutaneous and intra-articular air. Vasculature: Vascular calcific disease. XR/XR knee RT 1-2V [id number] IMPRESSION: Recent postsurgical changes of right total knee arthroplasty without radiographic evidence of hardware complication.
--- NOTE | 2023-11-15 12:56 | PM.OP ---
Operative Report Date of procedure: November 15, 2023 Pre-op diagnosis: Right knee severe degenerative osteoarthritis with valgus deformity and slight flexion contracture Post-op diagnosis: Right knee severe degenerative osteoarthritis with valgus deformity and slight flexion contracture Post-op findings: Eburnation of bone, valgus deformity, and slight flexion contracture. Procedure done: Right total knee arthroplasty with Kong guidance. Implants: The Valery total knee system with a size 5 triathlon beaded cruciate retaining femur right, a triathlon titanium tibial component size 4 beaded, a triathlon X3 tibial bearing CS insert size 4 X 9 mm and a beaded triathlon titanium asymmetric patella size 32 x 10 mm Specimens removed/disposition: Bone, disposed of Pathology: None Surgeon: Ofe Rodrigues MD Behavior Interventionist: Cherry Nicholas, nurse practitioner, services were required for exposure, retraction, implant placement, and closure. Anesthesia: Spinal (With MAC, ASA 3) Estimated blood loss (mL): 150 Tourniquet time (min): 0 (Not utilized) IV fluids (mL): 1,200 Urine output (mL): 250 Complications: None Findings: Severe degenerative osteoarthritis with valgus deformity, eburnation of bone, large osteophytes, and flexion contracture in addition to the valgus. Condition: stable Disposition: PACU (Then discharged to floor for postoperative rehabilitation and pain management) Brief History: This 63-year-old woman presents today for right total knee arthroplasty. The patient has previously been seen in the office, and she has significant limitations in activities of daily living due to this right knee. The patient has been optimized for surgery including podiatry evaluation. Preoperatively, the patient was seen in the clinic. Questions were answered and consents were signed. Procedure: The patient was brought to the operating theater, and after undergoing spinal anesthesia with MAC, with supplemental adductor canal block, ASA 3, the right lower extremity was prepped with Dura-Prep and draped in usual fashion following placement of a tourniquet high on the leg. The leg was then draped free.? Tourniquet was not elevated during the case.? A surgical pause was performed, and at the time of the surgical pause, we confirmed the site and side of surgery. Additionally, we confirmed the appropriate and timely administration of preoperative antibiotics, Ancef 2 g and Transexemic acid 1 g.? The availability of equipment was confirmed, and the patient's identity was verbalized as well.? An additional transexemic acid 1 g was given at the end of the surgical procedure as well. Following the surgical pause, an incision was made centering over the patella continuing proximally and distally as necessary to allow access to the knee joint. Dissection continued through skin and soft tissues using a scalpel. Hemostasis was obtained using electrocautery. The skin incision was followed by a median parapatellar arthrotomy. The leg was extended and the patella was able to be displaced laterally.? Appropriate arrays and markers were placed in appropriate position for use of the Kong.? Preoperative planning had been accomplished and was discussed in detail with the [facility] product support sales representative.? Intraoperative mapping of the femur and tibia was accomplished after the arrays were placed.? Internal markers were also placed.? Once we had accomplished the Kong mapping, we began the appropriate resections for placement of the prosthesis.? The plan was for a cruciate retaining right total knee arthroplasty. Once appropriate mapping had been accomplished retraction was established using manual retraction by surgical technicians and also the Kong leg positioner and retractors.? The knee was evaluated.? There was significant osteoarthritic change as well as slight flexion contracture and valgus deformity.? Appropriate bone resection was accomplished using the Kong.? The femur was sized to a size 5.? Following femoral cuts, attention was directed to the tibia.? Osteophytes were removed prior to this portion of the procedure.? We had performed a minimal medial release at the beginning of the procedure to allow for placement of the array.? Proximal tibia was evaluated, and it was felt that appropriate size for the tibia was a size 4.? Tray was noted to fit nicely with good coverage.? Rim fit was accomplished with the size 4. A trial reduction was accomplished after osteophytes have been removed as well as the medial and lateral menisci.? We had removed the anterior cruciate ligament at the beginning of the case and preserved the posterior cruciate ligament.? Trial reduction was accomplished with a size 5 femoral cruciate retaining component and a size 4 CS tibial bearing insert which was 9 mm in thickness and the size 4 tibial tray.? Alignment was felt to be appropriate as well.? Trial components were removed after the femur had been drilled.? Prior to removal of the tibial tray which had been pinned in position with appropriate rotation as determined by the Kong plan, we broached the tibia.? Subsequently, the 4 drill holes were made for the prosthetic component.? All trial components were removed, and the wound was irrigated.? Plans were made for insertion of the prosthetic components.? Prior to this, the patella was manually prepared.? After resection of the articular surface with the jogging system, it was measured and measured a 32 mm patella.? We resected approximately 8 mm of patella.? Patellar height was restored with the patellar component. Once again, the wound was irrigated.? The Tritanium tibia was impacted into position.? The beaded femur was then impacted into position in a cementless fashion. The CS tibial insert was placed prior to placement of the femoral component. The patella was pressed into position with a patellar clamp.? Exparel was injected about the components deep and superficially.? The knee was then copiously irrigated with betadine and saline and suctioned dry. Attention was then directed to closure. Closure was accomplished with 0 Vicryl in the fascial tissues.? The suture line of 0 Vicryl was supplemented with strata fix, #1, with a running stitch from proximal to distal and a second running stitch from distal to proximal.? This was followed by Surgiflo and vancomycin powder.? Following this, a 2-0 Monocryl was used in the subcutaneous tissues, and the skin was closed with skin ajit.? Care was taken to assure an excellent subcutaneous as well as skin closure.? A sterile dressing was then placed consisting of Dermabond Prineo, OpSite, ABD, sterile soft roll, and an Vik wrap including over the foot. The patient was returned the Recovery Room in a satisfactory condition. X-rays were obtained and reviewed there.? The patient will be discharged to the floor for postoperative rehabilitation and pain management.
[2023-11-15] MEDS: CELEcoxib 200 mg Capsule PO (14:32)
--- NOTE | 2023-11-15 14:43 | ANE.PACU2 ---
Inpatient post-anesthesia follow up: Airway intact: Yes Vital signs: Temperature 97.7 F Pulse Rate 90 Respiratory Rate 19 Blood Pressure 109/63 Pulse Oximetry 100 Oxygen Delivery Me thod Room Air Oxygen Flow Rate 6 Fraction of Inspir ed Oxygen Hydration adequate: Yes Nausea and vomiting: No Pain level: 1 Mental status: Baseline
[2023-11-15] MEDS: tranexamic acid 1,000 MG/100 ML PREMIX 600 MG IV (15:15)
[2023-11-15] MEDS: sennosides-docusate Tablet 2 TAB PO (17:22)
[2023-11-15] MEDS: calcium carbonate 500 mg Chew Tablet 1000 MG PO (17:22)
[2023-11-15] MEDS: iron polysaccharide complex 150 mg Capsule PO (17:22)
[2023-11-15] MEDS: chlorhexidine gluconate 0.12% Btl 473 mL 30 ML MUCOUS MEM ×2 (17:25→20:30)
[2023-11-15] MEDS: zolpidem 5 mg Tablet 10 MG PO (20:29)
[2023-11-15] MEDS: TRAMadol 50 mg Tablet PO (20:29)
[2023-11-15] MEDS: atorvastatin 40 mg Tablet PO (20:29)
[2023-11-15] MEDS: ondansetron 2 mg/ML SDV 2 mL 4 MG IVP (22:31)
[2023-11-15] MEDS: oxyCODONE 5 mg IR Tab/Cap PO (22:31)
[2023-11-16] VITALS (10 sets, daily range): BP systolic 89–118; BP diastolic 50–70; PULSE 85–106; RESP 14–20; TEMP 36.3–37; O2SAT 91–99
[2023-11-16] MEDS: ceFAZolin 2,000 MG in sodium chloride 0.9% (plus) 50 ML 100 MG IV ×2 (01:21→10:04)
[2023-11-16] MEDS: CELEcoxib 200 mg Capsule PO (01:22)
[2023-11-16] MEDS: oxyCODONE 5 mg IR Tab/Cap PO ×2 (05:09→17:57)
[2023-11-16] MEDS: acetaminophen 1,000 MG/100 ML PIGGYBACK 400 MG IV (05:11)
[2023-11-16 06:08] LABS: Basophils % 0.5 %; Eosinophils # 0.1 10^3/uL (0.0-0.8); Eosinophils % 0.8 %; Hematocrit 31.9 % (36-47); Lymphocytes # 1.1 10^3/uL (0.8-4.8); Mean Corpuscular HGB Conc 32.6 g/dL (30-55); Mean Corpuscular Hemoglobin 27.7 pg (27-33); Mean Corpuscular Volume 85.1 fl (85-98); Mean Platelet Volume 10.7 fL (7.4-10.4); Monocytes % 11.9 %; Neutrophils % 73.6 %; Nucleated Red Blood Cells % 0 %; Platelet Count 227 10^3/cmm (157-399); Red Blood Count 3.75 10^6/uL (3.85-5.65); Red Cell Distribution Width 14.4 % (12.1-15.1); White Blood Count 8.56 10^3/uL (3.29-11.43)
[2023-11-16 06:38] LABS: Anion Gap 12.7 (5-19); Blood Urea Nitrogen 48 mg/dL (8-23); Calcium 9.5 mg/dL (8.5-10.5); Carbon Dioxide 27 mmol/L (22-29); Chloride 103 mmol/L (98-107); Glomerular Filtration Rate 35.3 mL/min (90-130); Glucose 109 mg/dL (65-115); Osmolality Calculated 299 mOsm/kg (285-295); Potassium 4.7 mmol/L (3.5-5.1); Sodium 138 mmol/L (136-145)
--- NOTE | 2023-11-16 08:52 | PC.CHAP ---
Pastoral Care Encounter/Spiritual Assessment Type of Contact [] Declined medical billing instructor visit [] Patient/Family/Request visit [] Outpatient visit [] Follow-up visit [] Physician referral [] Code/Alert [] Routine visit [] Staff referral [] Actively dying [] Patient sleeping [] Family support [] [] Out of room [] Palliative care [] [x] Receiving care in room [] Pre-surgical visit [] Trauma [] Long length of stay [] ICU visit [] Other: Relational/Emotional Strength [] Patient feels connected with others/family/visitors/staff [] Distress [] Loneliness/isolation [] Abandonment Spirituality of Patient [] Person of Rohini [] Attends Christianity of their Rohini [] Believes in Prayer [] Reads Bible or Religion materials [] There are Spiritual issues to be addressed Lineworker Interventions [] Prayer [] Active listening [] Non-anxious presence [] Spiritual/emotional support [] Crisis/trauma care [] Spiritual counseling [] Bereavement support [] Provided bereavement packet [] Provided Bible/devotional materials [] Provided toy/stuffed animal, coloring book to patient or family member [] Provided Communion [] Anointing/[place] [] Salvation [] Completed spiritual assessment [] Other: Impact on Illness or Injury [] Angry [] Fearful [] Anxious [] Often cries [] Exhaustion [] Unable to work [] Unable to attend cheondoism [] Unable to walk/stand [] Unable to read [] Unable to drive [] Unable to eat/drink [] Unable to sleep [] Unable to be with family [] Patient intubated [] Other: Summary Time spent with patient
[2023-11-16] MEDS: sennosides-docusate Tablet 2 TAB PO ×2 (08:56→17:02)
[2023-11-16] MEDS: loratadine 10 mg Tablet PO (08:56)
[2023-11-16] MEDS: levothyroxine 75 mcg Tablet PO (08:56)
[2023-11-16] MEDS: multivitamin therapeutic Tablet 1 TAB PO (08:56)
[2023-11-16] MEDS: cholecalciferol (vitamin D3) 1,000 unit Tablet 1000 UNIT PO (08:56)
[2023-11-16] MEDS: calcium carbonate 500 mg Chew Tablet 1000 MG PO ×2 (08:56→17:02)
[2023-11-16] MEDS: aspirin 325 mg EC Tablet PO (08:57)
[2023-11-16] MEDS: glimepiride 2 mg Tablet 4 MG PO (08:57)
[2023-11-16] MEDS: iron polysaccharide complex 150 mg Capsule PO ×2 (08:59→17:02)
[2023-11-16] MEDS: chlorhexidine gluconate 0.12% Btl 473 mL 30 ML MUCOUS MEM ×4 (09:00→21:26)
[2023-11-16] MEDS: oxybutynin 5 mg Tablet 10 MG PO (09:04)
[2023-11-16 09:59] LABS: Glucose Point of Care 93 mg/dL (70-110)
[2023-11-16] MEDS: mupirocin oint 22 gm 1 APPLIC NASAL ×2 (10:04→17:01)
[2023-11-16] MEDS: sodium chloride 0.9% 500 ML IV (10:05)
[2023-11-16] MEDS: pantoprazole DR 40 mg Tablet PO (10:05)
--- NOTE | 2023-11-16 10:09 | P.CONIM_ITS ---
Documented by User: Nahid Victor Hugobriseida Mota 11/16/23 10:25 Providers/Reason For Consult 2 Consulting Physician/Specialty*: Murray Mathis MD Reason for Consult*: Hypotension Requesting Physician: Ofe Rodrigues MD Attending Physician: Ofe Rodrigues MD Primary Care Provider: Rocael Montaño DO History of Present Illness History of Present Illness Patient is a 63-year-old female who underwent a right total knee arthroplasty with Kong guidance performed by orthopedics on 11/15/2023. Patient is POD 1. Consulted due to hypotension and dizziness. Patient reports this morning that she felt somewhat dizzy since surgery date of yesterday. Patient did state that she was able to ambulate yesterday and did report some dizziness during therapy ambulation. Also reported dizziness this a.m. when using the bedside commode but denies any dizziness while lying in bed. Blood pressure was checked and noted to be 89/57. Rechecked 1 hour later and revealed 90 systolic per nursing. She reports that normal blood pressures in clinic settings are 100-110 systolic. She denies any abdominal pain, chest discomfort, nausea, vomiting. Review of Systems 2 Narrative: ROS is negative except as noted in the HPI above. Medications/Allergies Home Medications Medication Instructions Recorded Confirmed Last Taken Type CALCIUM 500 mg PO DAILY 12/22/19 11/14/23 11/13/23 History VITAMIN C 1,000 mg PO DAILY 12/22/19 11/14/23 11/13/23 History VITAMIN D 2,000 mg PO DAILY 12/22/19 11/14/23 11/13/23 History aspirin 81 mg tablet,delayed 81 mg PO QDAY 12/22/19 11/14/23 11/08/23 History release [id number]-tmg-bcwjs ac 400 1 tab PO DAILY 12/22/19 11/14/23 11/13/23 History mcg-calcium carb 500 mg-vit K1 20 mcg tablet (Women's 50 Plus Multivitamin) flash glucose scanning reader #1 ea 05/16/22 11/16/23 Unknown Rx (FreeStyle Cameron 2 [place]) glimepiride 4 mg tablet 4 mg PO DAILY #90 tabs 04/02/23 11/14/23 11/12/23 Rx lisinopril 40 mg tablet 40 mg PO QDAY #90 tabs 05/21/23 11/14/2311/14/23 Rx Custom Orthotic AFO Brace #1 ea 07/16/23 11/16/23 Unknown Rx zolpidem 10 mg tablet 10 mg PO .qhs #30 tabs 07/16/23 11/14/23 11/14/23 Rx flash glucose sensor (FreeStyle #9 kits 07/18/23 11/16/23 Unknown Rx Cameron 2 Sensor kit) atorvastatin 80 mg tablet 80 mg PO .BEDTIME #90 tabs 08/14/23 11/14/23 11/14/23 Rx spironolactone 25 1 tab PO DAILY 90 days #90 tabs 09/26/23 11/14/23 11/15/23 Rx mg-hydrochlorothiazide 25 mg tablet biotin 10,000 mcg capsule 1 cap PO DAILY 10/09/23 11/14/23 11/13/23 History mupirocin 2 % topical ointment 1 applic topical BID #22 grams 10/12/23 11/14/23 11/13/23 Rx alprazolam 0.25 mg tablet 0.25 mg PO QID PRN anxiety #120 10/15/23 11/14/23 11/14/23 Rx tabs levothyroxine 75 mcg tablet 75 mcg PO QDAY #90 tabs 10/15/23 11/14/23 11/15/23 Rx tramadol 50 mg tablet 50 mg PO BID PRN pain #60 tabs 10/15/23 11/14/23 11/14/23 Rx nystatin 100,000 unit/gram topical See Rx Instructions .Route 11/07/23 11/14/23 Unknown Rx powder ([facility]) .COMPLEX #60 grams oxybutynin chloride 10 mg 10 mg PO QDAY #90 tabs 11/07/23 11/14/23 11/14/23 Rx tablet,extended release 24 hr omeprazole 20 mg capsule,delayed See Rx Instructions .Route 11/12/23 11/14/23 11/15/23 Rx release .COMPLEX #180 caps fluconazole 150 mg tablet See Rx Instructions .Route 11/14/23 11/16/23 Unknown History .COMPLEX PRN yeast loratadine 10 mg tablet (Claritin) 10 mg PO DAILY 11/14/23 11/14/23 11/15/23 History tirzepatide 15 mg/0.5 mL See Rx Instructions .Route 11/14/23 11/14/23 11/06/23 Rx subcutaneous pen injector .COMPLEX #2 mL (Bartolo) Allergies Allergy/AdvReac Type Severity Reaction Status Date / Time No Known Allergies Allergy Verified 11/12/23 08:02 Current Medications Generic Name Dose Route Start Last Admin Trade Name Nitin PRN Reason Stop Dose Admin Aspirin 325 mg 11/16/23 09:00 11/16/23 08:57 Aspirin 325 Mg Ec Tablet PO 325 mg DAILY CATINA Administration Atorvastatin Calcium 40 mg 11/15/23 21:00 11/15/23 20:29 Atorvastatin 40 Mg Tablet PO 40 mg BEDTIME CATINA Administration Calcium Carbonate 1,000 mg 11/15/23 18:00 11/16/23 08:56 Calcium Carbonate 500 Mg Chew Tablet PO 1,000 mg BID CATINA Administration Chlorhexidine Gluconate 30 ml 11/15/23 13:25 11/16/23 09:00 Chlorhexidine Gluconate 0.12% Btl 473 Ml MUCOUS MEM 30 ml QID CATINA Administration Cefazolin Sodium 2,000 mg/ 50 mls @ 100 mls/hr 11/15/23 18:00 11/16/23 10:04 Sodium Chloride IV 11/16/23 10:29 100 mls/hr Q8H CATINA Administration Protocol Sodium Chloride 500 mls @ 500 mls/hr 11/16/23 09:35 11/16/23 10:05 Sodium Chloride 0.9% IV 11/16/23 10:34 500 mls/hr ONCE ONE Administration Levothyroxine Sodium 75 mcg 11/16/23 09:00 11/16/23 08:56 Levothyroxine 75 Mcg Tablet PO 75 mcg DAILY CATINA Administration Loratadine 10 mg 11/16/23 09:00 11/16/23 08:56 Loratadine 10 Mg Tablet PO 10 mg DAILY CATINA Administration Multivitamins Therapeutic 1 tab 11/16/23 09:00 11/16/23 08:56 Multivitamin Therapeutic Tablet PO 1 tab DAILY CATINA Administration Mupirocin 1 applic 11/15/23 18:00 11/16/23 10:04 Mupirocin Oint 22 Gm NASAL 11/20/23 17:59 1 applic BID CATINA Administration Protocol Ondansetron HCl 4 mg 11/15/23 13:25 11/15/23 22:31 Ondansetron 2 Mg/Ml Sdv 2 Ml IVP 4 mg Q6H PRN Administration NAUSEA AND VOMITING Oxybutynin Chloride 10 mg 11/16/23 09:00 11/16/23 09:04 Oxybutynin 5 Mg Tablet PO 10 mg DAILY CATINA Administration Oxycodone HCl 5 mg 11/15/23 13:25 11/16/23 05:09 Oxycodone 5 Mg Ir Tab/Cap PO 5 mg Q4H PRN Administration MODERATE PAIN Pantoprazole Sodium 40 mg 11/16/23 09:45 11/16/23 10:[address] 40 Mg Tablet PO 40 mg DAILY CATINA Administration Polysaccharide Iron Complex 150 mg 11/15/23 18:00 11/16/23 08:59 Iron Polysaccharide Complex 150 Mg Capsule PO 150 mg BIDWM CATINA Administration Senna/Docusate Sodium 2 tab 11/15/23 18:00 11/16/23 08:56 Sennosides-Docusate Tablet PO 2 tab BID CATINA Administration Tramadol HCl 50 mg 11/15/23 13:25 11/15/23 20:29 Tramadol 50 Mg Tablet PO 50 mg BID PRN Administration pain Vitamin D 1,000 unit 11/16/23 09:00 11/16/23 08:56 Cholecalciferol (Vitamin D3) 1,000 Unit Tablet PO 1,000 unit DAILY CATINA Administration Zolpidem Tartrate 10 mg 11/15/23 21:00 11/15/23 20:29 Zolpidem 5 Mg Tablet PO 10 mg BEDTIME CATINA Administration PFSH Acute 2 PFSH: Medical History 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 Performed by Dr. Dailey at [facility] in [place], [place]. Family History Father Diabetes Hypertension Stroke Hypercholesteremia Social History Substance/Drug Use: never Vitals/I&O/Wt Last Vital Signs Temp 98.6 F 11/16/23 07:38 Pulse 86 11/16/23 07:38 Resp 16 11/16/23 07:38 BP 89/57 11/16/23 07:38 Pulse Ox 91 11/16/23 07:38 O2 Del Method Room Air 11/16/23 07:38 O2 Flow Rate 6 11/15/23 12:42 11/15/23 11/16/23 11/16/23 22:59 06:59 14:59 Intake Total 490 / 1990 150 / 2140 480 / 480 Output Total 700 / 1350 400 / 1750 Balance -210 / 640 -250 / 390 480 / 480 Weight last 48 hrs Weight 90.86 kg Weight 82.1 kg Physical Exam 2 Narrative: General: Alert, able answer questions appropriately, pleasant HEENT: Moist mucous membranes, eyes reactive brisk, head normocephalic, no throat abnormalities. Neck: Supple Lymph: No lymphadenopathy noted Chest normal to inspection Respiratory: Normal respiratory effort, clear lungs per auscultation throughout Cardio: RRR, no edema throughout. GI: Active bowel sounds. No abdominal tenderness on palpation. : Deferred, Medley cath removed and able to urinate for bedside commode today Neuro: Food Service Tray Attendant equal, alert oriented x 4, no present arm or leg drift. Positive sensation to right and left lower extremity. Skin: Right leg wrapped with bandage. Data 11/16/23 05:38 11/16/23 05:38 Other Labs: Hemoglobin 10.4, hematocrit 31.9 BUN 48, creatinine 1.5 A&P Assessment and plan (1) Hypotension after procedure: Appreciate consultation. Patient was noted to be hypotensive this a.m. with a BP of 89/57. Patient does report some mild dizziness when standing but denies any while laying in bed. Did ambulate yesterday with PT and nursing staff and stated that she did have some dizziness during intervention. Utilized BSC this a.m. and was dizzy during. We will hold her antihypertensives, (lisinopril and spironolactone/HCTZ.) We will give a 500ml normal saline bolus. Nursing to recheck blood pressure post infusion. Start pantoprazole Will advance diet to consistent carb for lunch. (2) Uncontrolled type 2 diabetes mellitus with chronic kidney disease: (3) Chronic kidney disease: (4) Acute blood loss as cause of postoperative anemia: Plan Plan as stated above. Hold antihypertensives and give patient 500 mL normal saline bolus. Coding Level of Care Code 20927 Diagnoses Hypotension after procedure I95.81 Uncontrolled type 2 diabetes mellitus with chronic kidney disease E11.22; E11.65 Chronic kidney disease N18.9 Acute blood loss as cause of postoperative anemia D62 Documented by User: Murray Mathis MD 11/16/23 11:51 Review of Systems 2 General: Reports: 10 or more systems reviewed and unremarkable except in HPI and below Card: Denies: chest pain Resp: Denies: dyspnea Medications/Allergies Home Medications Medication Instructions Recorded Confirmed Last Taken Type CALCIUM 500 mg PO DAILY 12/22/19 11/14/23 11/13/23 History VITAMIN C 1,000 mg PO DAILY 12/22/19 11/14/23 11/13/23 History VITAMIN D 2,000 mg PO DAILY 12/22/19 11/14/23 11/13/23 History aspirin 81 mg tablet,delayed 81 mg PO QDAY 12/22/19 11/14/23 11/08/23 History release [id number]-apk-nkcga ac 400 1 tab PO DAILY 12/22/19 11/14/23 11/13/23 History mcg-calcium carb 500 mg-vit K1 20 mcg tablet (Women's 50 Plus Multivitamin) flash glucose scanning reader #1 ea 05/16/22 11/16/23 Unknown Rx (FreeStyle Cameron 2 [place]) glimepiride 4 mg tablet 4 mg PO DAILY #90 tabs 04/02/23 11/14/23 11/12/23 Rx lisinopril 40 mg tablet 40 mg PO QDAY #90 tabs 05/21/23 11/14/23 11/14/23 Rx Custom Orthotic AFO Brace #1 ea 07/16/23 11/16/23 Unknown Rx zolpidem 10 mg tablet 10 mg PO .qhs #30 tabs 07/16/23 11/14/23 11/14/23 Rx flash glucose sensor (FreeStyle #9 kits 07/18/23 11/16/23 Unknown Rx [place]o 2 Sensor kit) atorvastatin 80 mg tablet 80 mg PO .BEDTIME #90 tabs 08/14/23 11/14/23 11/14/23 Rx spironolactone 25 1 tab PO DAILY 90 days #90 tabs 09/26/23 11/14/23 11/15/23 Rx mg-hydrochlorothiazide 25 mg tablet biotin 10,000 mcg capsule 1 cap PO DAILY 10/09/23 11/14/23 11/13/23 History mupirocin 2 % topical ointment 1 applic topical BID #22 grams 10/12/23 11/14/23 11/13/23 Rx alprazolam 0.25 mg tablet 0.25 mg PO QID PRN anxiety #120 10/15/23 11/14/23 11/14/23 Rx tabs levothyroxine 75 mcg tablet 75 mcg PO QDAY #90 tabs 10/15/23 11/14/23 11/15/23 Rx tramadol 50 mg tablet 50 mg PO BID PRN pain #60 tabs 10/15/23 11/14/23 11/14/23 Rx nystatin 100,000 unit/gram topical See Rx Instructions .Route 11/07/23 11/14/23 Unknown Rx powder ([facility]) .COMPLEX #60 grams oxybutynin chloride 10 mg 10 mg PO QDAY #90 tabs 11/07/23 11/14/23 11/14/23 Rx tablet,extended release 24 hr omeprazole 20 mg capsule,delayed See Rx Instructions .Route 11/12/23 11/14/23 11/15/23 Rx release .COMPLEX #180 caps fluconazole 150 mg tablet See Rx Instructions .Route 11/14/23 11/16/23 Unknown History .COMPLEX PRN yeast loratadine 10 mg tablet (Claritin) 10 mg PO DAILY 11/14/23 11/14/23 11/15/23 History tirzepatide 15 mg/0.5 mL See Rx Instructions .Route 11/14/23 11/14/23 11/06/23 Rx subcutaneous pen injector .COMPLEX #2 mL (Bartolo) Allergies Allergy/AdvReac Type Severity Reaction Status Date / Time No Known Allergies Allergy Verified 11/12/23 08:02 PFSH Acute 2 PFSH: Medical History 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 Performed by Dr. Dailey at [facility] in [place], [place]. Family History Father Diabetes Hypertension Stroke Hypercholesteremia Social History Substance/Drug Use: never Data 11/16/23 05:38 11/16/23 05:38 A&P Assessment and plan (1) Hypotension after procedure: Appreciate consultation. Patient was noted to be hypotensive this a.m. with a BP of 89/57. Patient does report some mild dizziness when standing but denies any while laying in bed. Did ambulate yesterday with PT and nursing staff and stated that she did have some dizziness during intervention. Utilized BSC this a.m. and was dizzy during. We will hold her antihypertensives, (lisinopril and spironolactone/HCTZ.) We will give a 500ml normal saline bolus. Nursing to recheck blood pressure post infusion. NS at 100 cc an hour Start pantoprazole Will advance diet to consistent carb for lunch. (2) Uncontrolled type 2 diabetes mellitus with chronic kidney disease: Hold patient's Amaryl. She would be at risk for hypoglycemia secondary to poor intake in the hospital. Monitor blood sugars. (3) Chronic kidney disease: Hold Celebrex. Avoid Toradol. (4) Acute blood loss as cause of postoperative anemia: Saline bolus as above Continue hydration Repeat CBC tomorrow if she is still in the hospital. Plan Plan as stated above. Hold antihypertensives and give patient 500 mL normal saline bolus. Thank you for this consultation Consult Attestations 2 Medical Necessity Statement: As per primary Diagnoses Hypotension after procedure I95.81 Uncontrolled type 2 diabetes mellitus with chronic kidney disease E11.22; E11.65 Chronic kidney disease N18.9 Acute blood loss as cause of postoperative anemia D62
[2023-11-16] MEDS: TRAMadol 50 mg Tablet PO ×2 (11:37→21:25)
[2023-11-16] MEDS: ondansetron 2 mg/ML SDV 2 mL 4 MG IVP (11:37)
[2023-11-16] MEDS: sodium chloride 0.9% 1,000 ML 100 ML IV ×2 (11:40→21:28)
[2023-11-16 11:58] LABS: Glucose Point of Care 136 mg/dL (70-110)
[2023-11-16] MEDS: acetaminophen 500 mg Tablet 1000 MG PO ×2 (12:04→21:26)
--- NOTE | 2023-11-16 12:51 | P.PN_ITS ---
Subjective 2 Subjective: Patient had an episode of low blood pressure this morning. Hospitalist team became involved. She did respond to a bolus. Subsequently, she complained of some dizziness. Medical consultation was placed, and the patient will likely stay at least an extra day. Vitals/I&O/Wt Last Vital Signs Temp 98.2 F 11/16/23 11:46 Pulse 90 11/16/23 11:46 Resp 20 H 11/16/23 11:46 BP 98/60 11/16/23 11:46 Pulse Ox 99 11/16/23 11:46 O2 Del Method Room Air 11/16/23 11:46 O2 Flow Rate 6 11/15/23 12:42 11/15/23 11/16/23 11/16/23 22:59 06:59 14:59 Intake Total 490 / 1990 150 / 2140 1030 / 1030 Output Total 700 / 1350 400 / 1750 Balance -210 / 640 -250 / 390 1030 / 1030 Weight last 48 hrs Weight 200 lb 5 oz Weight 181 lb Physical Exam 2 Const: COMMON NORMALS: no acute distress, average body habitus, patient oriented x3, no limitations, healthy appearing, alert and well nourished G ENERAL APPEARANCE: cooperative; not anxious and not combative ORIENTATION/CONSCIOUSNESS: Yes awake, Yes oriented to person, Yes oriented to place and Yes oriented to time HENMT: COMMON NORMALS: normocephalic and atraumatic HEAD & SCALP: n ormocephalic and atraumatic Eye: GENERAL EYE: appearance normal, both eyes and all related structures E YELID: eyelids normal Chest: COMMONS NORMALS: normal inspection of the chest Resp: COMMON NORMALS: normal respiratory effort EFFORT & INSPECTION: Yes able to speak in complete sentences and Yes symmetric chest movement Extremity: RIGHT LOWER EXTREMITY: Yes knee joint (Large outer dressing is removed) Right knee: Yes inspection (No significant swelling or effusion), Yes palpation (Minimal tenderness), Yes ROM (Not evaluated) and Yes neurovascular exam (Intact with no evidence of DVT) Neuro: COMMON NORMALS: patient oriented x3 SENSORIUM/ORIENTATION: Yes alert, Yes oriented to person, Yes oriented to place and Yes oriented to time SPEECH: speech normal GAIT: Yes Normal gait present Psych: ATTITUDE: Yes calm and Yes engaged ACTIVITY/MOTOR BEHAVIOR: Yes appropriate eye contact ATTENTION/CONCENTRATION: Yes attention grossly intact MEMORY/COGNITION: Yes memory grossly intact Skin: COMMON NORMALS: no rashes or lesions noted and turgor normal; negative for no jaundice GENERAL SKIN EXAM: no rashes or lesions noted, turgor normal and no jaundice Urinary Catheter Management: Medley: Cath Placed During This Visit: yes, but has since been removed by the nurse Reason for Continuing Indwelling Catheter: Not indwelling catheter Urinary Catheter Date of Insertion: 11/15/23 Urinary Catheter Time of Insertion: 09:30 Date Urinary Catheter Removed: 11/16/23 Time Urinary Catheter Discontinued: 05:00 Data 11/16/23 05:38 11/16/23 05:38 A&P Assessment and plan (1) Osteoarthritis of right knee: Patient underwent right total knee arthroplasty yesterday. She did well following this, however, this morning, the patient developed a hypotensive episode. Subsequent to that, she had some dizziness. She was seen in consultation by the medical service, and she did respond to a fluid bolus. She noted that she was uncomfortable going home particularly in light of her dizziness . To this end, under the guidance of the hospitalist team, we have elected to keep her in the hospital for 1 more night of observation to assure that her symptoms passed. Otherwise, there is no evidence of DVT. She is to receive home health. She will be followed by Dr. Mars and his team over the weekend from the orthopedic perspective. Qualifiers: Osteoarthritis type: primary Qualified Code(s): M17.11 - Unilateral primary osteoarthritis, right knee (2) Status post total right knee replacement not using cement: Attestations 2 Medical Necessity Statement*: Patient had hypotensive episode with dizziness postop day 1 following right total knee arthroplasty Coding Level of Care Code Acute Code for [facility] Fwd Diagnoses Primary osteoarthritis of right knee M17.11 Osteoarthritis type: primary Status post total right knee replacement not using cement Z96.651
[2023-11-16 16:44] LABS: Glucose Point of Care 109 mg/dL (70-110)
[2023-11-16 20:56] LABS: Glucose Point of Care 115 mg/dL (70-110)
[2023-11-16] MEDS: zolpidem 5 mg Tablet 10 MG PO (21:25)
[2023-11-16] MEDS: atorvastatin 40 mg Tablet PO (21:26)
[2023-11-17] VITALS (11 sets, daily range): BP systolic 79–147; BP diastolic 48–75; PULSE 73–115; RESP 14–17; TEMP 37.2–38.4; O2SAT 94–97
--- NOTE | 2023-11-17 02:38 | ECG_ITS ---
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 Measurements Intervals [place] Rate: 107 P: 27 MO: 155 QRS: -12 QRSD: 79 T: 32 QT: 304 QTc: 407 Interpretive Statements SINUS TACHYCARDIA WITH OCCASIONAL SUPRAVENTRICULAR PREMATURE COMPLEXES LOW QRS VOLTAGE IN PRECORDIAL LEADS [QRS DEFLECTION < 1.0 mV IN CHEST LEADS] POSSIBLE ANTERIOR MYOCARDIAL INFARCTION , PROBABLY OLD [30 ms Q WAVE IN V3/V4, OR R < 0.2 mV IN V4] ABNORMAL RHYTHM ECG Compared to ECG 11/17/2023 01:25:04 No significant changes Electronically Signed On 11-18-2023 10:01:11 ENVIRONMENTAL OFFICER by Usman Sandhu M.D. [id number]
[2023-11-17 04:02] LABS: Basophils % 0.4 %; Eosinophils % 0.5 %; Hematocrit 28.8 % (36-47); Lymphocytes # 0.9 10^3/uL (0.8-4.8); Lymphocytes % 10.6 %; Mean Corpuscular Hemoglobin 27.9 pg (27-33); Mean Corpuscular Volume 84.7 fl (85-98); Mean Platelet Volume 10.4 fL (7.4-10.4); Monocytes # 1.3 10^3/uL (0.2-0.9); Monocytes % 15.7 %; Neutrophils % 72.4 %; Nucleated Red Blood Cells % 0 %; Platelet Count 187 10^3/cmm (157-399); Red Cell Distribution Width 14.4 % (12.1-15.1); White Blood Count 8.28 10^3/uL (3.29-11.43)
[2023-11-17 04:23] LABS: Blood Urea Nitrogen 36 mg/dL (8-23); Calcium 9.4 mg/dL (8.5-10.5); Carbon Dioxide 22 mmol/L (22-29); Chloride 103 mmol/L (98-107); Glomerular Filtration Rate 38.2 mL/min (90-130); Glucose 97 mg/dL (65-115); Osmolality Calculated 290 mOsm/kg (285-295); Sodium 136 mmol/L (136-145)
[2023-11-17] MEDS: acetaminophen 500 mg Tablet 1000 MG PO ×3 (04:54→20:39)
[2023-11-17] MEDS: sodium chloride 0.9% 1,000 ML 999 ML IV (04:55)
[2023-11-17] MEDS: sodium chloride 0.9% 1,000 ML 100 ML IV (05:06)
[2023-11-17 06:25] LABS: Glucose Point of Care 97 mg/dL (70-110)
--- NOTE | 2023-11-17 07:51 | P.PN_ITS ---
Subjective 2 Subjective: Patient resting comfortably in bed at this time. Patient states she had a rough night last night. Vitals/I&O/Wt Last Vital Signs Temp 99.3 F 11/17/23 03:17 Pulse 103 H 11/17/23 03:17 Resp 14 11/17/23 03:17 BP 103/64 11/17/23 07:10 Pulse Ox 97 11/17/23 03:17 O2 Del Method Room Air 11/17/23 03:17 O2 Flow Rate 6 11/15/23 12:42 11/16/23 11/17/23 11/17/23 22:59 06:59 14:59 Intake Total 1220 / 2490 763.333 / 3253.333 1000 / 1000 Balance 1220 / 2490 763.333 / 3253.333 1000 / 1000 Weight last 48 hrs Weight 210 lb 2 oz Weight 200 lb 5 oz Weight 181 lb Physical Exam 2 Narrative: 5 out of 5 strength in toes sensation in tact. Urinary Catheter Management: Medley: Cath Placed During This Visit: yes, but has since been removed by the nurse Reason for Continuing Indwelling Catheter: Not indwelling catheter Urinary Catheter Date of Insertion: 11/15/23 Urinary Catheter Time of Insertion: 09:30 Date Urinary Catheter Removed: 11/16/23 Time Urinary Catheter Discontinued: 05:00 Data 11/17/23 03:54 11/17/23 03:54 A&P Assessment and plan (1) Status post total right knee replacement not using cement: Postop day #2 right total knee replacement. Okay to DC from orthopedic standpoint awaiting hospitalist input. Attestations 2 Medical Necessity Statement*: Pain control Coding Level of Care Code Acute Code for [facility] Fwd Diagnoses Status post total right knee replacement not using cement Z96.651
[2023-11-17] MEDS: levothyroxine 75 mcg Tablet PO (08:23)
[2023-11-17] MEDS: calcium carbonate 500 mg Chew Tablet 1000 MG PO ×2 (08:23→17:09)
[2023-11-17] MEDS: iron polysaccharide complex 150 mg Capsule PO ×2 (08:23→17:09)
[2023-11-17] MEDS: cholecalciferol (vitamin D3) 1,000 unit Tablet 1000 UNIT PO (08:24)
[2023-11-17] MEDS: multivitamin therapeutic Tablet 1 TAB PO (08:24)
[2023-11-17] MEDS: sennosides-docusate Tablet 2 TAB PO ×2 (08:24→17:09)
[2023-11-17] MEDS: aspirin 325 mg EC Tablet PO (08:24)
[2023-11-17] MEDS: loratadine 10 mg Tablet PO (08:24)
[2023-11-17] MEDS: oxybutynin 5 mg Tablet 10 MG PO (08:24)
[2023-11-17] MEDS: mupirocin oint 22 gm 1 APPLIC NASAL ×2 (08:25→17:07)
[2023-11-17] MEDS: pantoprazole DR 40 mg Tablet PO (08:25)
[2023-11-17] MEDS: chlorhexidine gluconate 0.12% Btl 473 mL 30 ML MUCOUS MEM ×4 (08:25→20:40)
[2023-11-17] MEDS: TRAMadol 50 mg Tablet PO ×2 (08:32→20:39)
[2023-11-17] MEDS: ondansetron 2 mg/ML SDV 2 mL 4 MG IVP ×2 (08:32→22:16)
--- NOTE | 2023-11-17 10:20 | PC.OT ---
OT TREATMENT ATTEMPTED. PATIENT HAS TEMPERATURE AND ORTHOSTATIC VITALS LOW. PATIENT STATES THAT SHE FEELS ABSOLUTELY TERRIBLE AND REQUESTS TO HOLD OT AT THIS TIME. WILL ATTEMPT AGAIN TOMORROW.
--- NOTE | 2023-11-17 11:14 | XRR_ITS ---
PROCEDURE INFORMATION: Exam: XR Chest Exam date and time: 11/17/2023 1:05 PM Age: 63 years old Clinical indication: Shortness of breath; Patient HX: SOB; Hypotension post op; HX HTN TECHNIQUE: Imaging protocol: Radiologic exam of the chest. Views: 1 view. COMPARISON: No relevant prior studies available. FINDINGS: Lungs: Unremarkable. No consolidation. Pleural spaces: Unremarkable. No pleural effusion. No pneumothorax. Heart/Mediastinum: Unremarkable. No cardiomegaly. Vasculature: Aortic arch atherosclerotic calcification. Bones/joints: Mild degenerative changes along the spine. XR/XR chest 1V portable [id number] IMPRESSION: No acute findings.
--- NOTE | 2023-11-17 12:28 | P.PN_ITS ---
Subjective 2 Subjective: Patient was seen this morning, she continues to complain of dizziness, on exertion, she does report some dizziness with changing her head, no focal weakness detected no facial droop slurring her words no upper or lower extremity weakness finger to nose is within normal limits bilaterally, orthostatics remain positive,?BX was reported, she does report dysuria, plan for today is to obtain a UA, chest x-ray, repeat orthostatic vitals, monitor hemoglobin, will do a 6 troponin series, CT head, monitor clinically, Vitals/I&O/Wt Last Vital Signs Temp 99.6 F 11/17/23 08:00 Pulse 106 H 11/17/23 08:53 Resp 16 11/17/23 08:00 BP 100/58 11/17/23 08:53 Pulse Ox 95 11/17/23 08:00 O2 Del Method Room Air 11/17/23 03:17 O2 Flow Rate 6 11/15/23 12:42 11/16/23 11/17/23 11/17/23 22:59 06:59 14:59 Intake Total 1220 / 2490 763.333 / 3253.333 1240 / 1240 Balance 1220 / 2490 763.333 / 3253.333 1240 / 1240 Weight last 48 hrs Weight 95.311 kg Weight 90.86 kg Weight 82.1 kg Physical Exam 2 Const: COMMON NORMALS: no acute distress and patient oriented x3 Resp: COMMON NORMALS: normal respiratory effort, No retractions, No use of accessory muscles and clear to auscultation bilaterally AUSCULTATION: clear to auscultation bilaterally Cardio: COMMON NORMALS: regular rate, regular rhythm, S1 normal heart sound present and S2 normal heart sound present RATE: regular rate RHYTHM: r egular rhythm HEART SOUNDS: S1 normal heart sound present and S2 normal heart sound present GI: COMMON NORMALS: Normal to inspection, nondistended, normoactive bowel sounds present and non-tender Extremity: COMMON NORMALS: no pedal edema Neuro: COMMON NORMALS: patient oriented x3 Psych: COMMON NORMALS: mental status grossly normal Urinary Catheter Management: Medley: Cath Placed During This Visit: yes, but has since been removed by the nurse Reason for Continuing Indwelling Catheter: Not indwelling catheter Urinary Catheter Date of Insertion: 11/15/23 Urinary Catheter Time of Insertion: 09:30 Date Urinary Catheter Removed: 11/16/23 Time Urinary Catheter Discontinued: 05:00 Data 11/17/23 03:54 11/17/23 03:54 A&P Assessment and plan (1) Hypotension after procedure: (2) Uncontrolled type 2 diabetes mellitus with chronic kidney disease: (3) Chronic kidney disease: (4) Acute blood loss as cause of postoperative anemia: (5) Dizziness: Plan Dizziness, ? Postoperative ? Possible component of orthostatic hypotension, continue IV fluids, ? Possible component of postoperative anemia, monitor hemoglobin ? Repeat CT of the head ? UA, ? Troponin series, Chest x-ray Attestations 2 Medical Necessity Statement*: Patient requires hospitalization for postoperative dizziness Diagnoses Hypotension after procedure I95.81 Uncontrolled type 2 diabetes mellitus with chronic kidney disease E11.22; E11.65 Chronic kidney disease N18.9 Acute blood loss as cause of postoperative anemia D62 Dizziness R42
--- NOTE | 2023-11-17 12:29 | ECG_ITS ---
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 Measurements Intervals [place] Rate: 103 P: -20 NE: 150 QRS: -12 QRSD: 78 T: 16 QT: 297 QTc: 389 Interpretive Statements SINUS TACHYCARDIA LOW QRS VOLTAGE IN PRECORDIAL LEADS [QRS DEFLECTION < 1.0 mV IN CHEST LEADS] POSSIBLE ANTERIOR MYOCARDIAL INFARCTION , OF INDETERMINATE AGE [30 ms Q WAVE IN V3/V4, OR R < 0.2 mV IN V4] No previous ECG available for comparison Electronically Signed On 11-17-2023 13:54:42 PACKING MACHINE FEEDER by Usman Sandhu M.D. [email or web address] [facility]urepearl [facility] hospitalVal[facility] Lasersasht[facility].[employer]/store/[id number]
--- NOTE | 2023-11-17 12:29 | CTR_ITS ---
PROCEDURE INFORMATION: Exam: CT Head Without Contrast Exam date and time: 11/17/2023 3:17 PM Age: 63 years old Clinical indication: Dizziness; Prior surgery; Surgery date: 3-7 days post-operative; Surgery type: Knee; Additional info: Dizzyness TECHNIQUE: Imaging protocol: Computed tomography of the head without contrast. Radiation optimization: All CT scans at this facility use at least one of these dose optimization techniques: automated exposure control; mA and/or kV adjustment per patient size (includes targeted exams where dose is matched to clinical indication); or iterative reconstruction. REPORTING DATA: Count of CT and Cardiac NM exams in prior 12 months: This patient has received [address] and 0 known cardiac nuclear medicine studies in the 12 months prior to the current study. COMPARISON: No relevant prior studies available. RADIATION DOSE METRICS: Total DLP (mGy-cm): 1015.38 FINDINGS: Brain: Normal volume for age. No hemorrhage. Preserved presley-white matter differentiation. Mild scattered subcortical white matter hypodensities likely on the basis of chronic microvascular ischemic change. No mass effect. Cerebral ventricles: No ventriculomegaly. Paranasal sinuses: Visualized sinuses are unremarkable. No fluid levels. Mastoid air cells: Visualized mastoid air cells are well aerated. Orbital cavities: Bilateral lens replacement. Bones/joints: Unremarkable. No acute fracture. Soft tissues: Unremarkable. Vasculature: Mild bilateral ICA and vertebral artery calcifications. CT/CT head wo con* [id number] IMPRESSION: No acute intracranial findings.
[2023-11-17 13:45] LABS: Troponin(5th) Baseline 36 ng/L (0-10)
[2023-11-17 13:48] LABS: Add Urine Microscopic? NO; Charge for UA Resulting for Rev
[2023-11-17 13:56] LABS: Bilirubin Urine Neg (Negative); Blood Urine Neg (Negative); Glucose Urine UA Norm (Normal); Ketones Urine 1+ (Negative); Nitrate Urine Negative (Negative); Protein Urine Neg (Negative); Specific Gravity, Urine 1.015 (1.005-1.030); Urine Appearance Clear (CLEAR); Urine Color Yellow (Yellow); pH Urine 5 (5-7)
[2023-11-17 13:57] LABS: Leukocyte Esterase Urine Negative (Negative); Urobilinogen Urine Norm (Negative)
[2023-11-17 15:53] LABS: Troponin 5 2HR 34.56 ng/L (0-10)
[2023-11-17 16:00] LABS: Troponin 5 2HR Delta -1.44 ABS# (0-10)
[2023-11-17] MEDS: oxyCODONE 5 mg IR Tab/Cap PO ×2 (16:05→22:39)
[2023-11-17] MEDS: sodium chloride 0.9% 1,000 ML 50 ML IV (16:44)
[2023-11-17 17:02] LABS: Basophils % 0.3 %; Eosinophils % 0.4 %; Hematocrit 29.7 % (36-47); Lymphocytes # 1.1 10^3/uL (0.8-4.8); Lymphocytes % 10.4 %; Mean Corpuscular HGB Conc 32.7 g/dL (30-55); Mean Corpuscular Hemoglobin 27.7 pg (27-33); Mean Corpuscular Volume 84.9 fl (85-98); Mean Platelet Volume 10.8 fL (7.4-10.4); Monocytes # 1.6 10^3/uL (0.2-0.9); Monocytes % 15.1 %; Neutrophils # 7.55 10^3/uL (1.8-7.7); Neutrophils % 73.3 %; Nucleated Red Blood Cells % 0 %; Platelet Count 203 10^3/cmm (157-399); Red Cell Distribution Width 14.5 % (12.1-15.1)
--- NOTE | 2023-11-17 18:29 | ECG_ITS ---
[facility] Test Date: 2023-11-17 Pat Name: Roxanne Lee Department: Room: 270 Gender: Female Churner: : 1960 Requested By: Jose Monroe Order Number: [id number] Aaorn MD: Usman Sandhu M.D. Measurements Intervals [place] Rate: 106 P: -4 NV: 152 QRS: -10 QRSD: 82 T: 31 QT: 297 QTc: 396 Interpretive Statements SINUS TACHYCARDIA LOW QRS VOLTAGE IN PRECORDIAL LEADS [QRS DEFLECTION < 1.0 mV IN CHEST LEADS] POSSIBLE ANTERIOR MYOCARDIAL INFARCTION , OF INDETERMINATE AGE [30 ms Q WAVE IN V3/V4, OR R < 0.2 mV IN V4] Compared to ECG 11/17/2023 02:38:57 No significant changes Electronically Signed On 11-18-2023 10:01:09 SEWER SEPARATION DESIGNER by Usman Sandhu M.D. [email or web address] [email or web address] Softwarecleveland [facility].[employer]/store/[id number]
[2023-11-17 18:46] LABS: Glucose Point of Care 142 mg/dL (70-110)
[2023-11-17] MEDS: atorvastatin 40 mg Tablet PO (20:39)
[2023-11-17] MEDS: zolpidem 5 mg Tablet 10 MG PO (20:40)
[2023-11-17 22:01] LABS: Glucose Point of Care 129 mg/dL (70-110)
[2023-11-18] VITALS (9 sets, daily range): BP systolic 101–143; BP diastolic 63–80; PULSE 102–109; RESP 16–18; TEMP 36.3–37.6; O2SAT 93–100; BMI 34.2
[2023-11-18] MEDS: acetaminophen 500 mg Tablet 1000 MG PO ×3 (04:04→20:21)
[2023-11-18 04:49] LABS: Basophils % 0.5 %; Eosinophils # 0.1 10^3/uL (0.0-0.8); Eosinophils % 0.7 %; Hematocrit 25.9 % (36-47); Lymphocytes # 1.2 10^3/uL (0.8-4.8); Lymphocytes % 14.2 %; Mean Corpuscular HGB Conc 33.2 g/dL (30-55); Mean Corpuscular Hemoglobin 27.7 pg (27-33); Mean Corpuscular Volume 83.3 fl (85-98); Mean Platelet Volume 10.9 fL (7.4-10.4); Monocytes # 1.3 10^3/uL (0.2-0.9); Monocytes % 15.2 %; Neutrophils # 5.68 10^3/uL (1.8-7.7); Neutrophils % 69.2 %; Nucleated Red Blood Cells % 0 %; Platelet Count 183 10^3/cmm (157-399); Red Blood Count 3.11 10^6/uL (3.85-5.65); Red Cell Distribution Width 14.6 % (12.1-15.1); White Blood Count 8.22 10^3/uL (3.29-11.43)
[2023-11-18 05:05] LABS: Alanine Aminotransferase < 5 U/L (0-33); Alkaline Phosphatase 53 U/L (35-105); Anion Gap 13.9 (5-19); Aspartate Amino Transferase 13 U/L (0-32); Blood Urea Nitrogen 25 mg/dL (8-23); Calcium 9.1 mg/dL (8.5-10.5); Carbon Dioxide 22 mmol/L (22-29); Chloride 104 mmol/L (98-107); Globulin 2.5 g/dL (1.3-4.6); Glomerular Filtration Rate 45.7 mL/min (90-130); Glucose 118 mg/dL (65-115); Magnesium 1.1 mg/dL (1.7-2.3); Osmolality Calculated 287 mOsm/kg (285-295); Phosphorus 1.6 mg/dL (2.5-4.5); Potassium 3.9 mmol/L (3.5-5.1); Sodium 136 mmol/L (136-145); Total Bilirubin 0.3 mg/dL (0.15-1.2); Total Protein 5.5 g/dL (6.6-8.7)
[2023-11-18 07:15] LABS: Glucose Point of Care 122 mg/dL (70-110)
[2023-11-18] MEDS: calcium carbonate 500 mg Chew Tablet 1000 MG PO ×2 (08:24→17:16)
[2023-11-18] MEDS: aspirin 325 mg EC Tablet PO (08:25)
[2023-11-18] MEDS: iron polysaccharide complex 150 mg Capsule PO ×2 (08:25→17:16)
[2023-11-18] MEDS: loratadine 10 mg Tablet PO (08:25)
[2023-11-18] MEDS: levothyroxine 75 mcg Tablet PO (08:25)
[2023-11-18] MEDS: oxybutynin 5 mg Tablet 10 MG PO (08:25)
[2023-11-18] MEDS: sennosides-docusate Tablet 2 TAB PO ×2 (08:25→17:16)
[2023-11-18] MEDS: cholecalciferol (vitamin D3) 1,000 unit Tablet 1000 UNIT PO (08:25)
[2023-11-18] MEDS: pantoprazole DR 40 mg Tablet PO (08:25)
[2023-11-18] MEDS: TRAMadol 50 mg Tablet PO ×2 (08:26→16:05)
[2023-11-18] MEDS: multivitamin therapeutic Tablet 1 TAB PO (08:26)
[2023-11-18] MEDS: chlorhexidine gluconate 0.12% Btl 473 mL 30 ML MUCOUS MEM ×4 (08:32→20:20)
[2023-11-18] MEDS: mupirocin oint 22 gm 1 APPLIC NASAL ×2 (08:33→17:21)
--- NOTE | 2023-11-18 11:15 | USR_ITS ---
PROCEDURE INFORMATION: Exam: US Duplex Lower Extremity Veins, Bilateral Exam date and time: 11/18/2023 2:07 PM Age: 63 years old Clinical indication: Edema, localized; Lower extremity, right; Prior surgery; Surgery date: 3-7 days post-operative; Surgery type: Total knee replacement 11/15/2023; Additional info: Dvt TECHNIQUE: Imaging protocol: Real-time duplex ultrasound of the bilateral extremities with 2-D presley scale, color Doppler flow and spectral waveform analysis including responses to compression and other maneuvers (when performed) with image documentation. Complete exam focused on the lower extremity veins. COMPARISON: CT knee RT AMANDA [id number] 10/01/2023 5:04 PM FINDINGS: Right deep veins: Unremarkable. The common femoral, femoral, proximal profunda femoral, popliteal and peroneal veins are patent without thrombus. Normal Doppler waveforms. Normal compressibility and/or augmentation response. Left deep veins: Unremarkable. The common femoral, femoral, proximal profunda femoral, popliteal, posterior tibial and peroneal veins are patent without thrombus. Normal Doppler waveforms. Normal compressibility and/or augmentation response. Superficial veins: Bilateral saphenofemoral junctions are patent without thrombus. Soft tissues: 2.8 x 1.4 x 5.5 cm complex right popliteal cyst. US/[place] [id number] IMPRESSION: 1. No sonogram evidence of deep vein thrombosis. 2. 2.8 x 1.4 x 5.5 cm complex right popliteal cyst.
[2023-11-18] MEDS: oxyCODONE 5 mg IR Tab/Cap PO ×2 (11:58→23:45)
[2023-11-18] MEDS: sodium chloride 0.9% 1,000 ML 50 ML IV (12:01)
[2023-11-18 12:27] LABS: Glucose Point of Care 127 mg/dL (70-110)
--- NOTE | 2023-11-18 12:58 | P.PN_ITS ---
Subjective 2 Subjective: Patient was seen this morning she does report intermittent dizziness, but significantly better does report generalized weakness especially with ambulation, she is concerned about going home, as she has not ambulated much here, given her dizziness, plan is to ambulate her today, Vitals/I&O/Wt Last Vital Signs Temp 97.4 F L 11/18/23 11:35 Pulse 102 H 11/18/23 11:35 Resp 18 11/18/23 11:58 BP 129/74 11/18/23 11:35 Pulse Ox 97 11/18/23 11:35 O2 Del Method Room Air 11/18/23 11:35 O2 Flow Rate 6 11/15/23 12:42 11/17/23 11/18/23 11/18/23 22:59 06:59 14:59 Intake Total 178.333 / 2225.000 1084.167 / 1084.167 Output Total 975 / 975 500 / 1475 Balance -796.667 / 1250.000 -500 / 245.279 4001.167 / 1084.167 Weight last 48 hrs Weight 99.337 kg Weight 95.311 kg Physical Exam 2 Const: COMMON NORMALS: no acute distress ORIENTATION/CONSCIOUSNESS: Yes awake, Yes oriented to person, Yes oriented to place and Yes oriented to time Resp: COMMON NORMALS: normal respiratory effort, No retractions, No use of accessory muscles and clear to auscultation bilaterally AUSCULTATION: clear to auscultation bilaterally Cardio: COMMON NORMALS: regular rate, regular rhythm, S1 normal heart sound present and S2 normal heart sound present RATE: regular rate RHYTHM: r egular rhythm HEART SOUNDS: S1 normal heart sound present and S2 normal heart sound present GI: COMMON NORMALS: Normal to inspection, nondistended, normoactive bowel sounds present and non-tender Extremity: COMMON NORMALS: no pedal edema Neuro: SENSORIUM/ORIENTATION: Yes oriented to person, Yes oriented to place and Yes oriented to time Urinary Catheter Management: Medley: Cath Placed During This Visit: yes, but has since been removed by the nurse Reason for Continuing Indwelling Catheter: Not indwelling catheter Urinary Catheter Date of Insertion: 11/15/23 Urinary Catheter Time of Insertion: 09:30 Date Urinary Catheter Removed: 11/16/23 Time Urinary Catheter Discontinued: 05:00 Data 11/18/23 04:04 11/18/23 04:04 A&P Assessment and plan (1) Hypotension after procedure: (2) Uncontrolled type 2 diabetes mellitus with chronic kidney disease: (3) Chronic kidney disease: (4) Acute blood loss as cause of postoperative anemia: (5) Dizziness: Plan Dizziness, ? Postoperative ? Possible component of orthostatic hypotension, continue IV fluids, ? Possible component of postoperative anemia, hemoglobin 8.6 monitor hemoglobin ? Repeat CT of the head, within normal limits ? UA, with normal limits ? Troponin series, 6-hour troponin 34, delta 1.[address]-T wave changes no chest pain complaints ?Chest x-ray no acute infiltrate ? Will do a venous ultrasound as right calf is a bit swollen -Will continue PT OT today plan on discharging tomorrow, once her strength is a bit built-up -Hypomagnesemia, magnesium 1.1 will replace IV Attestations 2 Medical Necessity Statement*: Patient requires hospitalization for dizziness, hypomagnesemia Diagnoses Hypotension after procedure I95.81 Uncontrolled type 2 diabetes mellitus with chronic kidney disease E11.22; E11.65 Chronic kidney disease N18.9 Acute blood loss as cause of postoperative anemia D62 Dizziness R42
--- NOTE | 2023-11-18 13:40 | P.PN_ITS ---
Subjective 2 Subjective: Patient in bed getting her passive range of motion in the passive range of motion machine. Pain is controlled at this point she stayed overnight to watch her blood pressure and plans to be discharged tomorrow. Vitals/I&O/Wt Last Vital Signs Temp 97.4 F L 11/18/23 11:35 Pulse 102 H 11/18/23 11:35 Resp 18 11/18/23 11:58 BP 129/74 11/18/23 11:35 Pulse Ox 97 11/18/23 11:35 O2 Del Method Room Air 11/18/23 11:35 O2 Flow Rate 6 11/15/23 12:42 11/17/23 11/18/23 11/18/23 22:59 06:59 14:59 Intake Total 178.333 / 2225.000 1084.167 / 1084.167 Output Total 975 / 975 500 / 1475 120 / 120 Balance -796.667 / 1250.000 -500 / 750.000 964.167 / 964.167 Weight last 48 hrs Weight 219 lb Weight 210 lb 2 oz Physical Exam 2 Narrative: In bed getting her passive range of motion exercises. Dressing dry no evidence of any bleeding. Urinary Catheter Management: Medley: Cath Placed During This Visit: yes, but has since been removed by the nurse Reason for Continuing Indwelling Catheter: Not indwelling catheter Urinary Catheter Date of Insertion: 11/15/23 Urinary Catheter Time of Insertion: 09:30 Date Urinary Catheter Removed: 11/16/23 Time Urinary Catheter Discontinued: 05:00 Data 11/18/23 04:04 11/18/23 04:04 A&P Assessment and plan (1) Status post total right knee replacement not using cement: Continue therapy wait discharge per the hospitalist. Attestations 2 Medical Necessity Statement*: Hypotension Coding Level of Care Code Acute Code for Chg Fwd Diagnoses Status post total right knee replacement not using cement Z96.651
[2023-11-18] MEDS: magnesium sulfate premix 2 GM/50 ML PIGGYBACK IV (13:44)
[2023-11-18 16:45] LABS: Glucose Point of Care 129 mg/dL (70-110)
[2023-11-18] MEDS: ALPRAZolam 0.5 mg Tablet 0.25 MG PO (17:20)
[2023-11-18] MEDS: ondansetron 2 mg/ML SDV 2 mL 4 MG IVP ×2 (17:20→23:37)
[2023-11-18] MEDS: zolpidem 5 mg Tablet 10 MG PO (20:21)
[2023-11-18] MEDS: atorvastatin 40 mg Tablet PO (20:21)
[2023-11-18 20:40] LABS: Glucose Point of Care 152 mg/dL (70-110)
[2023-11-19] VITALS: BP 124/75; PULSE 104; RESP 18; TEMP 37.8; O2SAT 95
[2023-11-19] MEDS: TRAMadol 50 mg Tablet PO ×2 (03:26→11:09)
[2023-11-19 03:57] LABS: Basophils % 0.4 %; Eosinophils # 0.2 10^3/uL (0.0-0.8); Eosinophils % 2.2 %; Hematocrit 24.4 % (36-47); Lymphocytes # 1.1 10^3/uL (0.8-4.8); Lymphocytes % 14.4 %; Mean Corpuscular HGB Conc 32.8 g/dL (30-55); Mean Corpuscular Hemoglobin 27.8 pg (27-33); Mean Corpuscular Volume 84.7 fl (85-98); Monocytes # 0.9 10^3/uL (0.2-0.9); Monocytes % 11.4 %; Neutrophils # 5.62 10^3/uL (1.8-7.7); Neutrophils % 71.2 %; Nucleated Red Blood Cells % 0 %; Platelet Count 204 10^3/cmm (157-399); Red Blood Count 2.88 10^6/uL (3.85-5.65); Red Cell Distribution Width 14.6 % (12.1-15.1); White Blood Count 7.89 10^3/uL (3.29-11.43)
[2023-11-19 04:13] LABS: Alanine Aminotransferase < 5 U/L (0-33); Albumin Level 2.8 g/dL (3.5-5.2); Alkaline Phosphatase 60 U/L (35-105); Anion Gap 11.8 (5-19); Aspartate Amino Transferase 12 U/L (0-32); Blood Urea Nitrogen 24 mg/dL (8-23); Calcium 8.7 mg/dL (8.5-10.5); Carbon Dioxide 22 mmol/L (22-29); Chloride 106 mmol/L (98-107); Globulin 2.4 g/dL (1.3-4.6); Glomerular Filtration Rate 50.5 mL/min (90-130); Glucose 130 mg/dL (65-115); Magnesium 1.2 mg/dL (1.7-2.3); Osmolality Calculated 288 mOsm/kg (285-295); Phosphorus 2.1 mg/dL (2.5-4.5); Potassium 3.8 mmol/L (3.5-5.1); Sodium 136 mmol/L (136-145); Total Bilirubin 0.3 mg/dL (0.15-1.2); Total Protein 5.2 g/dL (6.6-8.7)
[2023-11-19] MEDS: acetaminophen 500 mg Tablet 1000 MG PO (05:02)
[2023-11-19 06:37] VITALS: BMI 34.2
[2023-11-19 07:45] VITALS: BP 124/71; PULSE 99; RESP 17; TEMP 36.8; O2SAT 93
[2023-11-19] MEDS: sodium chloride 0.9% 1,000 ML 50 ML IV (08:13)
[2023-11-19] MEDS: pantoprazole DR 40 mg Tablet PO (09:33)
[2023-11-19] MEDS: magnesium sulfate premix 2 GM/50 ML PIGGYBACK IV (09:33)
[2023-11-19] MEDS: loratadine 10 mg Tablet PO (09:33)
[2023-11-19] MEDS: multivitamin therapeutic Tablet 1 TAB PO (09:33)
[2023-11-19] MEDS: iron polysaccharide complex 150 mg Capsule PO (09:33)
[2023-11-19] MEDS: sennosides-docusate Tablet 2 TAB PO (09:34)
[2023-11-19] MEDS: aspirin 325 mg EC Tablet PO (09:34)
[2023-11-19] MEDS: cholecalciferol (vitamin D3) 1,000 unit Tablet 1000 UNIT PO (09:34)
[2023-11-19] MEDS: oxybutynin 5 mg Tablet 10 MG PO (09:34)
[2023-11-19] MEDS: calcium carbonate 500 mg Chew Tablet 1000 MG PO (09:34)
[2023-11-19] MEDS: levothyroxine 75 mcg Tablet PO (09:34)
[2023-11-19] MEDS: chlorhexidine gluconate 0.12% Btl 473 mL 30 ML MUCOUS MEM (09:35)
[2023-11-19] MEDS: mupirocin oint 22 gm 1 APPLIC NASAL (09:35)
--- NOTE | 2023-11-19 09:48 | PM.DCS ---
Discharge Providers Date of Admission: 11/15/23 13:04 Date of Discharge: November 19, 2023 Attending Provider at Admission: Ofe Rodrigues MD Attending Provider at Discharge: Jose Monroe MD Primary Care Provider: Rocael Montaño DO Diagnoses at Discharge Discharge Diagnosis (1) Status post total right knee replacement not using cement: Status: Acute Reason for Visit Reason for Visit: 28218 M17.10 Hospital Course Hospital Course Patient is a 63-year-old female who underwent a right total knee arthroplasty with Kong guidance performed by orthopedics on 11/15/2023. Patient is POD 1. Consulted due to hypotension and dizziness. Patient reports this morning that she felt somewhat dizzy since surgery date of yesterday. Patient did state that she was able to ambulate yesterday and did report some dizziness during therapy ambulation. Also reported dizziness this a.m. when using the bedside commode but denies any dizziness while lying in bed. Blood pressure was checked and noted to be 89/57. Rechecked 1 hour later and revealed 90 systolic per nursing. She reports that normal blood pressures in clinic settings are 100-110 systolic. She denies any abdominal pain, chest discomfort, nausea, vomiting Patient was admitted to [facility] for right total knee replacement Patient's postoperative course was complicated with dizziness, with orthostatic hypotension, postoperative anemia, overall patient clinically improved, no chest pain complaints, EKG no acute ST-T wave changes, troponin series, 6-hour troponin 34, delta 1.4, chest x-ray no focal infiltrate, UA within normal limits CT head was within normal limits, venous ultrasound within normal limits, patient was examined throughout hospitalization, on discharge she was ambulating, no significant symptomatology, discharged home with home physical therapy, for hypomagnesemia, replacing IV during hospitalization and discharged on p.o. magnesium Physical Exam Const: COMMON NORMALS: no acute distress and patient oriented x3 Resp: COMMON NORMALS: normal respiratory effort, No retractions, No use of accessory muscles and clear to auscultation bilaterally AUSCULTATION: clear to auscultation bilaterally Cardio: COMMON NORMALS: regular rate, regular rhythm, S1 normal heart sound present and S2 normal heart sound present RATE: regular rate RHYTHM: regular rhythm HEART SOUNDS: S1 normal heart sound present and S2 normal heart sound present GI: COMMON NORMALS: Normal to inspection, nondistended, normoactive bowel sounds present and non-tender Extremity: COMMON NORMALS: no pedal edema Neuro: COMMON NORMALS: patient oriented x3 Psych: COMMON NORMALS: mental status grossly normal Urinary Catheter Management: Medley: Cath Placed During This Visit: yes, but has since been removed by the nurse Reason for Continuing Indwelling Catheter: Not indwelling catheter Urinary Catheter Date of Insertion: 11/15/23 Urinary Catheter Time of Insertion: 09:30 Date Urinary Catheter Removed: 11/16/23 Time Urinary Catheter Discontinued: 05:00 Discharge Data Studies Completed and Pending Completed Studies During Hospitalization Category Date Time Status CT head wo con* [id number] Routine Cat Scan 11/17/23 12:29 Completed XR chest 1V portable [id number] Routine Exams 11/17/23 11:14 Completed XR knee RT 1-2V 14302 Routine Exams 11/15/23 12:46 Completed US venous duplex lower extremity bilat [CV venous Ultrasound 11/18/23 11:15 [place] [id number]] Stat Pending at discharge Category Date Time Status Complete Blood Count w/Auto AM LABS Lab 11/20/23 04:00 Ordered Comprehensive Metabolic Panel AM LABS Lab 11/20/23 04:00 Ordered Magnesium AM LABS Lab 11/20/23 04:00 Ordered Phosphorus AM LABS Lab 11/20/23 04:00 Ordered Radiology Impressions Knee X-Ray 11/15/23 12:46 IMPRESSION: Recent postsurgical changes of right total knee arthroplasty without radiographic evidence of hardware complication. Chest X-Ray 11/17/23 11:14 IMPRESSION: No acute findings. Head CT 11/17/23 12:29 IMPRESSION: No acute intracranial findings. Venous Duplex 11/18/23 11:15 IMPRESSION: 1. No sonogram evidence of deep vein thrombosis. 2. 2.8 x 1.4 x 5.5 cm complex right popliteal cyst. Laboratory Results WBC 7.89 10^3/uL (3.29-11.43) 11/19/23 03:05 RBC 2.88 10^6/uL (3.85-5.65) L 11/19/23 03:05 Hgb 8.00 g/dL (11.27-16.99) L 11/19/23 03:05 Hct 24.4 % (36-47) L 11/19/23 03:05 MCV 84.7 fl (85-98) L 11/19/23 03:05 MCH 27.8 pg (27-33) 11/19/23 03:05 MCHC 32.8 g/dL (30-55) 11/19/23 03:05 RDW 14.6 % (12.1-15.1) 11/19/23 03:05 Plt Count 204 10^3/cmm (157-399) 11/19/23 03:05 MPV 11.0 fL (7.4-10.4) H 11/19/23 03:05 Neut % (Auto) 71.2 % 11/19/23 03:05 Lymph % (Auto) 14.4 % 11/19/23 03:05 [place] % (Auto) 11.4 % 11/19/23 03:05 Eos % (Auto) 2.2 % 11/19/23 03:05 Baso % (Auto) 0.4 % 11/19/23 03:05 Neut # (Auto) 5.62 10^3/uL (1.8-7.7) 11/19/23 03:05 Lymph # (Auto) 1.1 10^3/uL (0.8-4.8) 11/19/23 03:05 [place] # (Auto) 0.9 10^3/uL (0.2-0.9) 11/19/23 03:05 Eos # (Auto) 0.2 10^3/uL (0.0-0.8) 11/19/23 03:05 Baso # (Auto) 0.0 10^3/uL (0.0-0.1) 11/19/23 03:05 Nucleated RBC % (auto) 0 % 11/19/23 03:05 Nucleated RBCs # 0.0 /100WBC 11/19/23 03:05 Sodium 136 mmol/L (136-145) 11/19/23 03:05 Potassium 3.8 mmol/L (3.5-5.1) 11/19/23 03:05 Chloride 106 mmol/L (98-107) 11/19/23 03:05 Carbon Dioxide 22 mmol/L (22-29) 11/19/23 03:05 Anion Gap 11.8 (5-19) 11/19/23 03:05 BUN 24 mg/dL (8-23) H 11/19/23 03:05 Creatinine 1.1 mg/dL (0.5-0.9) H 11/19/23 03:05 GFR Calculation 50.5 mL/min (90-130) L 11/19/23 03:05 Glucose 130 mg/dL (65-115) H 11/19/23 03:05 POC Glucose 152 mg/dL (70-110) H 11/18/23 20:33 Calculated Osmolality 288 mOsm/kg (285-295) 11/19/23 03:05 Calcium 8.7 mg/dL (8.5-10.5) 11/19/23 03:05 Phosphorus 2.1 mg/dL (2.5-4.5) L 11/19/23 03:05 Magnesium 1.2 mg/dL (1.7-2.3) L 11/19/23 03:05 Total Bilirubin 0.3 mg/dL (0.15-1.2) 11/19/23 03:05 AST 12 U/L (0-32) 11/19/23 03:05 ALT < 5 U/L (0-33) 11/19/23 03:05 Alkaline Phosphatase 60 U/L (35-105) 11/19/23 03:05 Troponin T Baseline 36 ng/L (0-10) H 11/17/23 12:55 Troponin T 120 Minute 34.56 ng/L (0-10) H 11/17/23 15:07 Delta Troponin T -1.44 ABS# (0-10) L 11/17/23 15:07 Troponin T Hi Sens 6Hr 34.40 ng/L (0-10) H 11/17/23 19:52 Troponin T Hi Sens 6Hr Delta -1.60 ng/L (0-12) L 11/17/23 19:52 Total Protein 5.2 g/dL (6.6-8.7) L 11/19/23 03:05 Albumin 2.8 g/dL (3.5-5.2) L 11/19/23 03:05 Globulin 2.4 g/dL (1.3-4.6) 11/19/23 03:05 Urine Color Yellow (Yellow) 11/17/23 13:14 Urine Appearance Clear (CLEAR) 11/17/23 13:14 Urine pH 5 (5-7) 11/17/23 13:14 Ur Specific [place] 1.015 (1.005-1.030) 11/17/23 13:14 Urine Protein Neg (Negative) 11/17/23 13:14 Urine Glucose (UA) Norm (Normal) 11/17/23 13:14 Urine Ketones 1+ (Negative) H 11/17/23 13:14 Urine Blood Neg (Negative) 11/17/23 13:14 Urine Nitrate Negative (Negative) 11/17/23 13:14 Urine Bilirubin Neg (Negative) 11/17/23 13:14 Urine Urobilinogen Norm mg/dL (Negative) 11/17/23 13:14 Ur Leukocyte Esterase Negative (Negative) 11/17/23 13:14 Vitals Last Vital Signs Temp 98.2 F 11/19/23 07:45 Pulse 99 11/19/23 07:45 Resp 17 11/19/23 07:45 BP 124/71 11/19/23 07:45 Pulse Ox 93 11/19/23 07:45 O2 Del Method Room Air 11/19/23 07:45 O2 Flow Rate 6 11/15/23 12:42 Discharge Plan Discharge Patient Disposition: Home Health Service Condition: Stable Prescriptions: New oxycodone 5 mg Tablet 5 mg PO Q4H PRN (Reason: Moderate Pain) 7 Days Qty: 30 0RF acetaminophen 500 mg Tablet 1,000 mg PO Q8H 15 Days Qty: 90 0RF aspirin 325 mg Tablet,Delayed Release (Dr/Ec) 325 mg PO DAILY 30 Days Qty: 0 0RF magnesium L-lactate 84 mg tablet extended release 84 mg PO DAILY 30 Days Qty: 30 0RF Continued Women's 50 Plus Multivitamin 400 mcg-500 mg calcium-20 mcg tablet 1 tab PO DAILY CALCIUM 500 mg PO DAILY VITAMIN C 1,000 mg PO DAILY VITAMIN D 2,000 mg PO DAILY spironolacton-hydrochlorothiaz 25-25 mg tablet 1 tab PO DAILY 90 Days Qty: 90 0RF biotin 10,000 mcg capsule 1 cap PO DAILY (DME) Custom Orthotic AFO Brace See Rx Instructions .Route .MEDSUPPLY Qty: 1 0RF Rx Instructions: As directed by [employer] ([facility] [place] FreeStyle [place] 2 [place] See Rx Instructions .Route Qty: 1 0RF Rx Instructions: Check BS 4-6 times a day. glimepiride 4 mg tablet 4 mg PO DAILY Qty: 90 3RF Rx Instructions: Take one tablet by mouth daily. lisinopril 40 mg tablet 40 mg PO QDAY Qty: 90 3RF zolpidem 10 mg tablet 10 mg PO .qhs Qty: 30 5RF (DME) FreeStyle Cameron 2 Sensor Kit See Rx Instructions .ROUTE .COMPLEX Qty: 9 11RF Dose Instruction: CHANGE every 14 DAYS Rx Instructions: CHANGE every 14 DAYS atorvastatin 80 mg tablet 80 mg PO .BEDTIME Qty: 90 3RF mupirocin 2 % ointment 1 applic topical BID Qty: 22 5RF alprazolam 0.25 mg tablet 0.25 mg PO QID PRN (Reason: anxiety) Qty: 120 5RF Rx Instructions: may take 2-3 tabs or 0.75mg qhs for sleep. tramadol 50 mg tablet 50 mg PO BID PRN (Reason: pain) Qty: 60 5RF levothyroxine 75 mcg tablet 75 mcg PO QDAY Qty: 90 1RF nystatin [Nyamyc] 100,000 unit/gram powder See Rx Instructions .ROUTE .COMPLEX Qty: 60 3RF Dose Instruction: APPLY TOPICALLY TWICE DAILY Rx Instructions: APPLY TOPICALLY TWICE DAILY oxybutynin chloride 10 mg tablet extended release 24hr 10 mg PO QDAY Qty: 90 1RF omeprazole 20 mg capsule,delayed release(DR/EC) See Rx Instructions .ROUTE .COMPLEX Qty: 180 3RF Dose Instruction: take 1 capsule BY MOUTH TWICE DAILY Rx Instructions: take 1 capsule BY MOUTH TWICE DAILY Mounjaro 15 mg/0.5 mL pen injector See Rx Instructions .ROUTE .COMPLEX Qty: 2 1RF Dose Instruction: inject 15mg (0.5ml) SUBCUTANEOUSLY EVERY 7 DAYS Rx Instructions: inject 15mg (0.5ml) SUBCUTANEOUSLY EVERY 7 DAYS fluconazole 150 mg tablet See Rx Instructions .ROUTE .COMPLEX PRN (Reason: yeast ) Rx Instructions: TAKE 1 TABLET BY MOUTH every month FOR SKIN YEAST loratadine [Claritin] 10 mg Tablet 10 mg PO DAILY Held aspirin 81 mg tablet,delayed release (DR/EC) 81 mg PO QDAY Hold Instructions: Resume on 12/13/23. Following 30 days of full strength aspirin Discharge Orders: Discharge Order (Routine); Ordered 11/19/23 Ordered By: Jose Monroe Referrals: Ofe Rodrigues MD [Physician] - 11/29/23 2:15 pm Rocael Montaño DO [Primary Care Provider] - Discharge Diet: Advance as tolerated and Usual diet Discharge Activity: Increase activity as tolerated, Limit activity as instructed, Use walker/crutches as instructed and As per PT/OT instructions Patient Instructions: Opioid Safety Activity Restrictions/Additional Instructions: Ice and elevation to right lower extremity. Work on knee extension as well as knee flexion. Physical therapy for gait training, ambulation, and range of motion. Strengthening with therapy as well. Maintain the dressing in place until it comes off on its own or is removed here in the clinic. Discharge Attestations Time Spent in Discharge Care*: greater than 30 min Quality Metrics Clinical Quality Measures [ No reported AMI, CVA or VTE this stay] Coding Level of Care Code 83973 Total time (in minutes) for Discharge: 45 Diagnoses Status post total right knee replacement not using cement Z96.651
--- NOTE | 2023-11-19 11:19 | P.PN_ITS ---
Subjective 2 Subjective: Patient complaining of headache but plans to go home today. Vitals/I&O/Wt Last Vital Signs Temp 98.2 F 11/19/23 07:45 Pulse 99 11/19/23 07:45 Resp 17 11/19/23 07:45 BP 124/71 11/19/23 07:45 Pulse Ox 93 11/19/23 07:45 O2 Del Method Room Air 11/19/23 07:45 O2 Flow Rate 6 11/15/23 12:42 11/18/23 11/19/23 11/19/23 22:59 06:59 14:59 Intake Total 240 / 1374.167 60 / 3874.862 9726 / 1480 Output Total 900 / 1020 450 / 450 Balance 240 / 1254.167 -840 / 054.480 9313 / 1030 Weight last 48 hrs Weight 219 lb Weight 219 lb Physical Exam 2 Narrative: Move extremity in dressing clean dry and intact Urinary Catheter Management: Medley: Cath Placed During This Visit: yes, but has since been removed by the nurse Reason for Continuing Indwelling Catheter: Not indwelling catheter Urinary Catheter Date of Insertion: 11/15/23 Urinary Catheter Time of Insertion: 09:30 Date Urinary Catheter Removed: 11/16/23 Time Urinary Catheter Discontinued: 05:00 Data 11/19/23 03:05 11/19/23 03:05 A&P Assessment and plan (1) Status post total right knee replacement not using cement: Discharge planning today Attestations 2 Medical Necessity Statement*: Plan to discharge today Coding Level of Care Code Acute Code for Chg Fwd Diagnoses Status post total right knee replacement not using cement Z96.651
[2023-11-19 11:35] VITALS: BP 137/82; PULSE 96; RESP 18; TEMP 36.6; O2SAT 95
[2023-11-19 11:36] LABS: Glucose Point of Care 144 mg/dL (70-110)
[2023-11-19 12:00] VITALS: BP 137/82; PULSE 96; RESP 18; TEMP 36.6; O2SAT 95
== END 2023-11-19 11:35 | disposition home health service (06) ==
LOC: MEDSURG 13:04
PROVIDERS: Anesthesiology; Internal Medicine; Admitting Provider Specialist; PCP Family Medicine; Visit Provider Family Medicine
PROC: 8E0Y0CZ Robotic Assisted Procedure of Lower Extremity, Open Approach (ICD-10-PCS; CPT 27447; principal; 2023-11-15 09:00)
DX: M17.11 Unilateral primary osteoarthritis, right knee (principal); M21.061 Valgus deformity, not elsewhere classified, right knee; M24.561 Contracture, right knee; I95.81 Postprocedural hypotension; E11.22 Type 2 diabetes mellitus with diabetic chronic kidney disease; I12.9 Hypertensive chronic kidney disease with stage 1 through stage 4 chronic kidney disease, or unspecified chronic kidney disease; N18.9 Chronic kidney disease, unspecified; E11.65 Type 2 diabetes mellitus with hyperglycemia; D62 Acute posthemorrhagic anemia; R42 Dizziness and giddiness; E83.42 Hypomagnesemia; R60.0 Localized edema; M71.21 Synovial cyst of popliteal space [Baker], right knee; K21.9 Gastro-esophageal reflux disease without esophagitis; E78.5 Hyperlipidemia, unspecified; Z79.82 Long term (current) use of aspirin; E03.9 Hypothyroidism, unspecified
CPT/HCPCS: 27447; 36415; 36416; 51702; 70450; 71045; 73560; 80048; 80053; 81003; 82962; 83735; 84100; 84484; 85025; 93005; 93970; 97110; 97116; 97161; 97165; 97530; C1776; C9290; G0378; J0131; J0690; J2371; J2405; J2704; J2795; J3370; J3475; J3490; J7030; J7040

== ENCOUNTER → 2023-11-29 14:00 | Outpatient (BNVA) | payer OTHER, SELFPAY | PROVIDERS: PCP Family Medicine; Visit Provider Nurse Practitioner | DX: M17.11 Unilateral primary osteoarthritis, right knee (principal); Z96.651 Presence of right artificial knee joint | CPT/HCPCS: 36415; 73562; 85025 ==

== ENCOUNTER 2023-12-19 13:03 | Outpatient (RCR) | payer OTHER, SELFPAY | END 2023-12-26 23:59 | disposition home or self-care (01) | LOC: SPT 13:03 | PROVIDERS: PCP Family Medicine; Visit Provider Nurse Practitioner | DX: Z47.1 Aftercare following joint replacement surgery (principal); Z96.651 Presence of right artificial knee joint | CPT/HCPCS: 97110; 97161; 97530 ==

== ENCOUNTER 2023-12-26 08:49 | Outpatient (CLI) | payer OTHER, SELFPAY ==
[2023-12-26 10:18] LABS: Estmated Average Glucose 94; Hemoglobin A1C 4.9 % (4.0-6.0)
[2023-12-26 10:21] LABS: Alanine Aminotransferase 15 U/L (0-33); Albumin Level 4.1 g/dL (3.5-5.2); Alkaline Phosphatase 81 U/L (35-105); Anion Gap 13.6 (5-19); Aspartate Amino Transferase 20 U/L (0-32); Blood Urea Nitrogen 64 mg/dL (8-23); Calcium 10.9 mg/dL (8.5-10.5); Carbon Dioxide 29 mmol/L (22-29); Chloride 99 mmol/L (98-107); Chol HDL Ratio 2.38 mg/dL (0.0-4.40); Cholesterol 88 mg/dL (0-200); Globulin 2.8 g/dL (1.3-4.6); Glomerular Filtration Rate 45.7 mL/min (90-130); Glucose 96 mg/dL (65-115); HDL Cholesterol 37 mg/dL (60-100); LDL Cholesterol Calculated 34 mg/dL (50-129); LDL HDL Ratio 0.92 RATIO (0.00-3.22); Osmolality Calculated 304 mOsm/kg (285-295); Potassium 3.6 mmol/L (3.5-5.1); Sodium 138 mmol/L (136-145); Total Bilirubin 0.4 mg/dL (0.15-1.2); Total Protein 6.9 g/dL (6.6-8.7); Triglycerides 85 mg/dL (0-150)
[2023-12-26 10:26] LABS: Creatinine Urine, Random 81 mg/dL (28-217); Microalbum Creatinine Ratio Ur 12 mg/dL (0-20); Microalbumin Random Urine 1 ug/dL (0-20)
[2023-12-26 10:30] LABS: Add Urine Microscopic? YES; Bilirubin Urine Neg (Negative); Blood Urine Neg (Negative); Glucose Urine UA Norm (Normal); Ketones Urine Negative (Negative); Leukocyte Esterase Urine 2+ (Negative); Nitrate Urine Positive (Negative); Protein Urine Neg (Negative); Urine Appearance Cloudy (CLEAR); Urine Color Yellow (Yellow); Urobilinogen Urine Norm (Negative); pH Urine 6 (5-7)
[2023-12-26 11:03] LABS: Add Urine Culture? Yes; Bacteria Urine 2+ /hpf; Mucus Urine TRACE /hpf; Squamous Epithelial Cell Urine 0-4 /hpf (0-5); WBC Urine >100 /hpf (0-5)
[2023-12-26 13:56] LABS: Free T4 Free Thyroxine 1.93 ng/dL (0.82-1.77); Thyroid Stimulating Hormone 0.88 uIU/mL (0.27-4.20)
== END 2023-12-26 08:50 | disposition home or self-care (01) ==
LOC: LAB 08:51
PROVIDERS: PCP Family Medicine; Visit Provider Internal Medicine
DX: E11.649 Type 2 diabetes mellitus with hypoglycemia without coma (principal); E11.22 Type 2 diabetes mellitus with diabetic chronic kidney disease; N18.9 Chronic kidney disease, unspecified; D63.1 Anemia in chronic kidney disease; E03.9 Hypothyroidism, unspecified
CPT/HCPCS: 36415; 80053; 80061; 81001; 82044; 83036; 84439; 84443; 85018; 87077; 87086; 87186

== ENCOUNTER 2023-12-27 06:00 | Outpatient (RCR) | payer OTHER, SELFPAY | END 2024-01-08 23:59 | disposition home or self-care (01) | LOC: SPT 06:00 | PROVIDERS: PCP Family Medicine; Visit Provider Nurse Practitioner | DX: Z47.1 Aftercare following joint replacement surgery (principal); Z96.651 Presence of right artificial knee joint | CPT/HCPCS: 97110; 97530 ==

== ENCOUNTER → 2023-12-27 15:36 | Outpatient (BNVA) | payer OTHER, SELFPAY | PROVIDERS: PCP Family Medicine; Visit Provider Nurse Practitioner | DX: Z96.651 Presence of right artificial knee joint (principal); M25.561 Pain in right knee | CPT/HCPCS: 73560; 73565 ==

== ENCOUNTER 2024-01-02 08:47 | Outpatient (CLI) | payer OTHER, SELFPAY ==
[2024-01-02 09:22] LABS: Add Urine Microscopic? NO; Charge for UA Resulting for Rev
[2024-01-02 09:39] LABS: Bilirubin Urine Neg (Negative); Blood Urine Neg (Negative); Glucose Urine UA Norm (Normal); Ketones Urine Negative (Negative); Leukocyte Esterase Urine Negative (Negative); Nitrate Urine Negative (Negative); Protein Urine Neg (Negative); Urine Appearance Clear (CLEAR); Urine Color Yellow (Yellow); Urobilinogen Urine Norm (Negative); pH Urine 5 (5-7)
== END 2024-01-02 08:48 | disposition home or self-care (01) ==
LOC: LAB 08:49
PROVIDERS: PCP Family Medicine; Visit Provider Family Medicine
DX: N39.0 Urinary tract infection, site not specified (principal)
CPT/HCPCS: 81003; 87086

== ENCOUNTER 2024-01-10 08:53 | Outpatient (CLI) | payer OTHER, SELFPAY ==
[2024-01-10 09:38] LABS: Free T4 Free Thyroxine 1.67 ng/dL (0.82-1.77)
[2024-01-10 09:43] LABS: Calcium 10.8 mg/dL (8.5-10.5)
[2024-01-10 09:50] LABS: Parathyroid Hormone 10.2 pg/mL (15-65)
[2024-01-29 17:30] LABS: PTH Related Peptide (Protein) 20 pg/mL (11-20)
== END 2024-01-10 08:54 | disposition home or self-care (01) ==
LOC: LAB 08:55
PROVIDERS: PCP Family Medicine; Visit Provider Internal Medicine
DX: E11.22 Type 2 diabetes mellitus with diabetic chronic kidney disease (principal); E11.65 Type 2 diabetes mellitus with hyperglycemia; E11.649 Type 2 diabetes mellitus with hypoglycemia without coma; E03.9 Hypothyroidism, unspecified
CPT/HCPCS: 36415; 82310; 82542; 83970; 84439

== ENCOUNTER 2024-01-23 14:19 | Emergency (ER) | payer OTHER, SELFPAY ==
[2024-01-23 14:29] VITALS: BP 160/85; PULSE 89; TEMP 36.3; O2SAT 99; BMI 25.3
--- NOTE | 2024-01-23 14:45 | XR_ITS ---
WS: [id number] Exam: XR knee RT 3V* [id number] Date/Time of Exam: 01/23/2024 2:57 PM Reason For Exam: fall, s/p arthroplasty Comparison 12/27/2023. Total knee arthroplasty remains in satisfactory position. No sign of fracture or loosening. No joint effusion noted. Vascular calcifications noted posteriorly. IMPRESSION: 1. Intact RIGHT total knee arthroplasty. No complications noted.
--- NOTE | 2024-01-23 16:19 | ED_ITS ---
HPI - Extremity Problem General: Chief complaint: Extremity Injury, Lower Stated complaint: fall Time Seen by Provider: 01/23/24 15:58 History of Present Illness: 63-year-old female comes in today for in jury to the right knee. Patient had tripped and fell at work coming down onto her knees where she struck her left lower leg brace against the right medial knee. Patient has a history of a knee replacement there. Patient was concerned that she may have injured her knee. Patient appears nontoxic. Patient been able to ambulate on the knee. Patient has some tenderness to the medial aspect of the knee joint. 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 Performed by Dr. Dailey at [facility] in [place], [place]. Family History Father Diabetes Hypertension Stroke Hypercholesteremia Social History Substance/Drug Use: never Physical Exam Const: COMMON NORMALS: alert Neck/C-Spine: COMMON NORMALS: full ROM Resp: COMMON NORMALS: normal respiratory effort Cardio: COMMON NORMALS: regular rate RATE: regular rate Back/Pelvis: COMMON NORMALS: thoracic and lumbar spine normal to inspection Extremity: COMMON NORMALS: normal to inspection RIGHT LOWER EXTREMITY: Yes knee joint (Small coin size ecchymotic area medial knee joint) Neuro: SENSORIUM/ORIENTATION: Yes alert Course Vital Signs: Vital signs: Vital Signs Temperature 97.4 F L 01/23/24 14:29 Pulse Rate 89 01/23/24 14:29 Blood Pressure 160/85 01/23/24 14:29 Pulse Oximetry 99 01/23/24 14:29 Oxygen Delivery Me thod Room Air 01/23/24 14:29 MDM - Extremity (Nontraumatic) Medical Decision Making 63-year-old female comes in for evaluation of injury to the right knee. On exam patient moves all extremities well. Patient has some tenderness to the medial right knee. Normal range of motion knee is noted. Distal pulses and sensation are intact. Differential diagnosis includes fracture, sprain, contusion. X- rays no no abnormalities. Reviewed exam with patient with recommendations for treatment and follow-up. Patient reported understanding. All radiology interpretation(s) finalized by discharge Discharge Plan Discharge Patient Disposition: Home Clinical Impression: Fall from slip, trip, or stumble Qualifiers: Encounter type: initial encounter Qualified Code(s): W01.0XXA - Fall on same level from slipping, tripping and stumbling without subsequent striking against object, initial encounter Contusion of right knee Qualifiers: Encounter type: initial encounter Qualified Code(s): S80.01XA - Contusion of right knee, initial encounter Condition: Stable Prescriptions: No Action aspirin 81 mg tablet,delayed release (DR/EC) 81 mg PO QDAY Hold Instructions: Resume on 12/13/23. Following 30 days of full strength aspirin Women's 50 Plus Multivitamin 400 mcg-500 mg calcium-20 mcg tablet 1 tab PO DAILY CALCIUM 500 mg PO DAILY VITAMIN C 1,000 mg PO DAILY VITAMIN D 2,000 mg PO DAILY biotin 10,000 mcg capsule 1 cap PO DAILY (DME) Custom Orthotic AFO Brace See Rx Instructions .Route .MEDSUPPLY Qty: 1 0RF Rx Instructions: As directed by [employer] celecoxib [Celebrex] 100 mg capsule 100 mg PO BID Qty: 120 0RF nitrofurantoin monohyd/m-cryst [Macrobid] 100 mg capsule 100 mg PO Q12H 5 Days Qty: 10 0RF Rx Instructions: must administer with a meal/food (DME) FreeStyle [place] [facility] [place] Rx Instructions .Route Qty: 1 0RF Rx Instructions: Check BS 4-6 times a day. glimepiride 4 mg tablet 4 mg PO DAILY Qty: 90 3RF Rx Instructions: Take one tablet by mouth daily. atorvastatin 80 mg tablet 80 mg PO .BEDTIME Qty: 90 3RF mupirocin 2 % ointment 1 applic topical BID Qty: 22 5RF alprazolam 0.25 mg tablet 0.25 mg PO QID PRN (Reason: anxiety) Qty: 120 5RF Rx Instructions: may take 2-3 tabs or 0.75mg qhs for sleep. levothyroxine 75 mcg tablet 75 mcg PO QDAY Qty: 90 1RF nystatin [Nyamyc] 100,000 unit/gram powder See Rx Instructions .ROUTE .COMPLEX Qty: 60 3RF Dose Instruction: APPLY TOPICALLY TWICE DAILY Rx Instructions: APPLY TOPICALLY TWICE DAILY oxybutynin chloride 10 mg tablet extended release 24hr 10 mg PO QDAY Qty: 90 1RF omeprazole 20 mg capsule,delayed release(DR/EC) See Rx Instructions .ROUTE .COMPLEX Qty: 180 3RF Dose Instruction: take 1 capsule BY MOUTH TWICE DAILY Rx Instructions: take 1 capsule BY MOUTH TWICE DAILY tramadol 50 mg tablet 50 mg PO Q8H PRN (Reason: pain) 7 Days Qty: 21 0RF amoxicillin 500 mg capsule 2,000 mg PO .COMPLEX Qty: 24 0RF Rx Instructions: 2,000 mg orally 30 minutes prior to dental appt and repeat after appt.; (DME) [employer] Cameron 2 Sensor Kit See Rx Instructions .ROUTE .COMPLEX Qty: 9 11RF Dose Instruction: CHANGE every 14 DAYS Rx Instructions: CHANGE every 14 DAYS spironolacton-hydrochlorothiaz 25-25 mg tablet See Rx Instructions .ROUTE .COMPLEX Qty: 90 0RF Hold Instructions: Doctor's Order Dose Instruction: TAKE 1 TABLET BY MOUTH EVERY DAY Rx Instructions: TAKE 1 TABLET BY MOUTH EVERY DAY zolpidem 10 mg tablet 10 mg PO .qhs Qty: 30 5RF Mounjaro 15 mg/0.5 mL pen injector 15 mg SUBCUT Q7D 90 Days Qty: 6 12RF ciprofloxacin HCl 500 mg tablet 500 mg PO BID Qty: 10 0RF fluconazole 150 mg tablet See Rx Instructions .ROUTE .COMPLEX PRN (Reason: yeast ) Rx Instructions: TAKE 1 TABLET BY MOUTH every month FOR SKIN YEAST loratadine [Claritin] 10 mg Tablet 10 mg PO DAILY Discharge Orders: Discharge ED (Routine); Ordered 01/23/24 Ordered By: Ayaz Miller Referrals: Rocael Montaño DO [Primary Care Provider] - Patient Instructions: Contusion in Adults (ED) Activity Restrictions/Additional Instructions: Home and rest. Activity as tolerated. Use ice to the area for discomfort. Use acetaminophen or ibuprofen for further pain. Follow-up with primary care or it infrastructure specialist for further evaluation. Coding Level of Care Code ED [employer] Machine Operator for Fidencio Boland
== END 2024-01-23 16:32 | disposition home or self-care (01) ==
PROVIDERS: Emergency Provider Nurse Practitioner Family; PCP Family Medicine
DX: S80.01XA Contusion of right knee, initial encounter (principal); Z79.82 Long term (current) use of aspirin; Z79.84 Long term (current) use of oral hypoglycemic drugs; I10 Essential (primary) hypertension; W01.0XXA Fall on same level from slipping, tripping and stumbling without subsequent striking against object, initial encounter
CPT/HCPCS: 73562; 99283

== ENCOUNTER → 2024-01-30 08:45 | Outpatient (BNVA) | payer OTHER, SELFPAY | PROVIDERS: PCP Family Medicine; Visit Provider Nurse Practitioner | DX: Z96.651 Presence of right artificial knee joint (principal); M25.561 Pain in right knee | CPT/HCPCS: 73560; 73565 ==

== ENCOUNTER 2024-01-31 08:46 | Outpatient (RCR) | payer OTHER, SELFPAY | END 2024-02-24 23:59 | disposition home or self-care (01) | LOC: SPT 08:46 | PROVIDERS: Visit Provider Nurse Practitioner | DX: M25.561 Pain in right knee (principal) | CPT/HCPCS: 97140; 97161; G0283 ==

== ENCOUNTER 2024-02-05 08:44 | Outpatient (CLI) | payer OTHER, SELFPAY ==
[2024-02-05 09:54] LABS: Urine Appearance Cloudy (CLEAR); Urine Color Yellow (Yellow)
[2024-02-05 09:55] LABS: Add Urine Microscopic? YES; Bilirubin Urine Neg (Negative); Blood Urine Neg (Negative); Glucose Urine UA Norm (Normal); Ketones Urine 1+ (Negative); Leukocyte Esterase Urine Negative (Negative); Nitrate Urine Negative (Negative); Protein Urine Neg (Negative); Specific Gravity, Urine 1.025 (1.005-1.030); Urobilinogen Urine Norm (Negative); pH Urine 5 (5-7)
[2024-02-05 09:57] LABS: Alanine Aminotransferase 17 U/L (0-33); Alkaline Phosphatase 81 U/L (35-105); Anion Gap 14.6 (5-19); Aspartate Amino Transferase 21 U/L (0-32); Blood Urea Nitrogen 33 mg/dL (8-23); Calcium 9.6 mg/dL (8.5-10.5); Carbon Dioxide 28 mmol/L (22-29); Chloride 101 mmol/L (98-107); Globulin 2.4 g/dL (1.3-4.6); Glomerular Filtration Rate 72.9 mL/min (90-130); Glucose 125 mg/dL (65-115); Osmolality Calculated 297 mOsm/kg (285-295); Potassium 4.6 mmol/L (3.5-5.1); Sodium 139 mmol/L (136-145); Total Bilirubin 0.4 mg/dL (0.15-1.2); Total Protein 6.4 g/dL (6.6-8.7)
[2024-02-05 09:59] LABS: Add Urine Culture? No; Mucus Urine 1+ /hpf; Other Crystals Urine STARCH 3+ /hpf; Squamous Epithelial Cell Urine 0-4 /hpf (0-5); WBC Urine 0-4 /hpf (0-5)
[2024-02-05 10:00] LABS: Calcium 9.8 mg/dL (8.5-10.5)
[2024-02-05 10:08] LABS: Parathyroid Hormone 18.7 pg/mL (15-65)
[2024-02-05 10:49] LABS: 25 Hydroxy Vitamin D 72 ng/mL (30-100)
== END 2024-02-05 08:45 | disposition home or self-care (01) ==
LOC: LAB 08:47
PROVIDERS: PCP Family Medicine; Visit Provider Internal Medicine
DX: E83.52 Hypercalcemia (principal); N39.0 Urinary tract infection, site not specified; E03.9 Hypothyroidism, unspecified
CPT/HCPCS: 36415; 80053; 81001; 82306; 82310; 83970; 87086

== ENCOUNTER 2024-03-19 08:58 | Outpatient (CLI) | payer OTHER, SELFPAY ==
--- NOTE | 2024-03-19 09:07 | MM_ITS ---
WS: [id number] BILATERAL SCREENING DIGITAL TOMOSYNTHESIS MAMMOGRAM WITH CAD HISTORY: SCREENING COMPARISON: 03/16/2023, 03/14/2022 Bilateral CC and MLO views with tomosynthesis and synthetic mammography submitted. Computer aided det ection analyzed. Breast composition: There are scattered areas of fibroglandular density. No suspicious masses, microc alcifications or architectural distortion. Benign vascular calcifications. IMPRESSION: MM/[place] [id number] BI-RADS: 2-Benign FOLLOW UP: 1 Year Follow-up
== END 2024-03-19 08:59 | disposition home or self-care (01) ==
LOC: RAD 08:58
PROVIDERS: PCP Family Medicine; Visit Provider Obstetrics & Gynecology
DX: Z12.31 Encounter for screening mammogram for malignant neoplasm of breast (principal)
CPT/HCPCS: 77063; 77067

== ENCOUNTER 2024-03-21 09:02 | Observation (INO) | payer OTHER, SELFPAY ==
[2024-03-21] VITALS (12 sets, daily range): BP systolic 90–140; BP diastolic 51–85; PULSE 92–126; RESP 17–20; TEMP 36.7–37.1; O2SAT 94–98; BMI 23.0
--- NOTE | 2024-03-21 09:05 | XRR_ITS ---
PROCEDURE INFORMATION: Exam: XR Right Knee Exam date and time: 03/21/2024 9:39 AM Age: 63 years old Clinical indication: Injury or trauma; Fall; Blunt trauma; Knee; Right; Prior surgery; Surgery date: <1 month; Surgery type: Replacement; Additional info: Fall, knee pain, recent replacement TECHNIQUE: Imaging protocol: Radiologic exam of the right knee. Views: 3 views. COMPARISON: CR XR knees AP WB w RT lmt ORTH 01/30/2024 8:46 AM FINDINGS: Bones/joints: The patient is status post right knee arthroplasty. There is no evidence of fracture or hardware complication. There is a small suprapatellar/prepatellar effusion. Soft tissues: Normal. Vasculature: Extensive vascular calcifications are noted. XR/XR knee RT 3V* [id number] IMPRESSION: 1. No evidence of acute fracture or hardware complication. 2. Small effusion.
--- NOTE | 2024-03-21 09:06 | CT_ITS ---
WS: [id number] CT HEAD NONCONTRAST HISTORY: Traumatic head pain TECHNIQUE: Contiguous axial imaging performed through the brain in 2.5 mm imaging. Bone and soft tiss ue windows. Sagittal and coronal reformats reviewed. All CT scans at [facility] use at least one of these dose optimization techniques: automated exposure control; mA and/or kV adjustment per pa tient size (includes targeted exams where dose is matched to clinical indication); or iterative recon struction. DLP: 1994.28 mGy.cm COMPARISON: 11/17/2023 No acute intracranial hemorrhage, midline shift or mass effect. Mild atrophy and mild small vessel ischemic disease. No area of sulcal effacement or acute infarct. Ventricles: Normal size with no hydrocephalus. No inferior displacement of the cerebellar tonsils. Paranasal sinuses: As visualized are clear. Mastoid air cells: Well pneumatized. Calvarium and scalp: Skull is intact with no soft tissue edema or swelling. IMPRESSION: 1. No acute intracranial hemorrhage or edema. 2. Very mild atrophy and small vessel ischemic disease. Similar to the prior study.
--- NOTE | 2024-03-21 09:06 | CT_ITS ---
WS: [id number] CT CERVICAL SPINE HISTORY: fall, neck pain TECHNIQUE: Contiguous 2.0 mm axial imaging performed through the entire cervical spine. Sagittal and coronal reformats also performed. All CT scans at [facility] use at least one of these dose o ptimization techniques: automated exposure control; mA and/or kV adjustment per patient size (include s targeted exams where dose is matched to clinical indication); or iterative reconstruction. DLP: 1994.28 mGy.cm COMPARISON: None available. Normal cervical alignment. Craniocervical junction, atlantodental interval and C1-C2 alignment is nor mal. No central or foraminal stenosis. There is mild facet arthritis and small vertebral body osteophytes. Paravertebral soft tissues and the upper lungs are clear. There is a small amount of calcified plaque at the origin of the RIGHT subclavian artery. IMPRESSION: No acute cervical spine fracture. Very minimal degenerative cervical disc disease.
--- NOTE | 2024-03-21 09:06 | CT_ITS ---
WS: [id number] CT FACIAL BONES HISTORY: trauamatic facial pain TECHNIQUE: Images obtained from the supraorbital location through the mandible. Soft tissue and bone windows are reviewed. Coronal and sagittal reformats have also been submitted. DLP: 1994.[address] scans at [facility] use at least one of these dose optimization techniques: automated e xposure control; mA and/or kV adjustment per patient size (includes targeted exams where dose is matc hed to clinical indication); or iterative reconstruction. COMPARISON: None available. Nasal bones and zygomatic arches are intact. Pterygoid plates are normal. Normal mandibular condyles. Floor of the orbits intact. No air-fluid levels within the sinuses. Mandible and maxilla are negativ e. There is mild soft tissue inflammation centered around the anterior mandible. No fracture and the justo th appear appropriate. Upper cervical spine is negative. IMPRESSION: 1. No facial bone fracture. 2. Moderate soft tissue edema and blood infiltration centered over the mandibular symphysis. 3. Upper cervical spine is negative.
--- NOTE | 2024-03-21 09:07 | ECG_ITS ---
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 Measurements Intervals [place] Rate: 117 P: -10 [place]: 157 QRS: 7 QRSD: 72 T: 46 QT: 330 QTc: 462 Interpretive Statements SINUS TACHYCARDIA LOW QRS VOLTAGE [QRS DEFLECTION < 0.5/1.0 mV IN LIMB/CHEST LEADS] Poor R wave progression Compared to ECG 11/17/2023 05:54:42 Myocardial infarct finding no longer present Electronically Signed On 03-22-2024 19:22:10 CDT by Jr Landrum M.D. [id number]
[2024-03-21 09:21] LABS: Glucose Point of Care 162 mg/dL (70-110)
[2024-03-21 09:29] LABS: Basophils % 0.3 %; Eosinophils % 0.2 %; Lymphocytes # 0.4 10^3/uL (0.8-4.8); Lymphocytes % 3.4 %; Mean Corpuscular HGB Conc 35.3 g/dL (30-55); Mean Corpuscular Hemoglobin 27.7 pg (27-33); Mean Corpuscular Volume 78.3 fl (85-98); Mean Platelet Volume 10.6 fL (7.4-10.4); Monocytes # 0.5 10^3/uL (0.2-0.9); Monocytes % 4.1 %; Neutrophils # 11.83 10^3/uL (1.8-7.7); Neutrophils % 91.5 %; Nucleated Red Blood Cells % 0 %; Platelet Count 292 10^3/cmm (157-399); White Blood Count 12.92 10^3/uL (3.29-11.43)
[2024-03-21 09:45] LABS: Alanine Aminotransferase 44 U/L (0-33); Albumin Level 4.5 g/dL (3.5-5.2); Alkaline Phosphatase 89 U/L (35-105); Anion Gap 23.8 (5-19); Aspartate Amino Transferase 41 U/L (0-32); Blood Urea Nitrogen 62 mg/dL (8-23); C Reactive Protein 8.1 mg/L (0.0-4.9); Calcium 10.1 mg/dL (8.5-10.5); Carbon Dioxide 22 mmol/L (22-29); Chloride 96 mmol/L (98-107); Globulin 2.2 g/dL (1.3-4.6); Glomerular Filtration Rate 56.4 mL/min (90-130); Glucose 169 mg/dL (65-115); Lipase 36 U/L (13-60); Osmolality Calculated 308 mOsm/kg (285-295); Potassium 3.8 mmol/L (3.5-5.1); Sodium 138 mmol/L (136-145); Total Bilirubin 0.5 mg/dL (0.15-1.2); Total Protein 6.7 g/dL (6.6-8.7); Troponin(5th) Baseline 25 ng/L (0-10)
[2024-03-21 09:46] LABS: Lactic Sepsis W/Reflex 2.6 mmol/L (0.5-2.2)
[2024-03-21 09:47] LABS: Creatinine Clr Calc Pharmacy 59.3449
[2024-03-21] MEDS: sodium chloride 0.9% 1,000 ML 999 ML IV ×3 (09:50→13:57)
[2024-03-21] MEDS: ondansetron 2 mg/ML SDV 2 mL 8 MG IVP (09:50)
--- NOTE | 2024-03-21 10:00 | W.ED.URI ---
HPI - URI/Sore Throat General: Chief Complaint: Nausea/Vomiting/Diarrhea Stated Complaint: flu like symptoms Time Seen by Provider: 03/21/24 09:03 History of Present Illness: 63-year-old female with a history of anxiety, hypertension, hyperlipidemia who presents to the emergency room with malaise, syncope, vomiting. She says she started feeling bad about 12 hours ago. In the middle of the night she got up to vomit and had a syncopal episode. Apparently she fell forward and hit her chin. She has bruising around her chin. She says her jaw hurts. She is not sure how long she was out on the floor. She has some upper abdominal cramping type pain. No known fevers. She is hypotensive and tachycardic on presentation. No altered mental status. No focal motor deficits. No chest pain. She had knee replacement about 6 months ago and had a pretty severe GI bleed at that time. Review of Systems Narrative: Constitutional symptoms: Negative except as documented in HPI. Skin symptoms: Negative except as documented in HPI. Eye symptoms: Negative except as documented in HPI. ENMT symptoms: Negative except as documented in HPI. Respiratory symptoms: Negative except as documented in HPI. Cardiovascular symptoms: Negative except as documented in HPI. Gastrointestinal symptoms: Negative except as documented in HPI. Genitourinary symptoms: Negative except as documented in HPI. Musculoskeletal symptoms: Negative except as documented in HPI. Neurologic symptoms: Negative except as documented in HPI. Psychiatric symptoms: Negative except as documented in HPI. Endocrine symptoms: Negative except as documented in HPI. 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 Performed by Dr. Dailey at [facility] in [place], [place]. Family History Father Diabetes Hypertension Stroke Hypercholesteremia Social History Substance/Drug Use: never Physical Exam Narrative: EXAM NARRATIVE: General: Alert, no acute distress. Skin: Warm, dry. Head: Normocephalic, bruising to chin. Neck: Supple, trachea midline. Eye: Extraocular movements are intact. Ears, nose, mouth and throat: Dry oral mucosa Cardiovascular: Regular, tachycardic, Normal peripheral perfusion. Respiratory: Lungs are clear to auscultation, respirations are non-labored, breath sounds are equal, Symmetrical chest wall expansion. Gastrointestinal: Soft, Nontender, Non distended, Normal bowel sounds. Musculoskeletal: Normal ROM, no deformity. Neurological: Alert and oriented, No focal neurological deficit observed. Psychiatric: Cooperative, appropriate mood & affect. Course Vital Signs: Vital signs: Vital Signs Temperature 98.1 F 03/21/24 09:05 Pulse Rate 102 H 03/21/24 13:09 Respiratory Rate 17 03/21/24 13:09 Blood Pressure 94/55 03/21/24 15:31 Pulse Oximetry 94 03/21/24 14:22 Oxygen Delivery Me thod Room Air 03/21/24 14:22 MDM - URI/Sore Throat Medical Decision Making Medical decision making: Differential diagnosis including but not limited to and based on the above HPI, review of systems and physical exam: With vomiting, malaise, syncope, hypotension and tachycardia primarily concern for infection such as pneumonia or urinary tract infection Orders placed to evaluate differential diagnosis based on the above differential, HPI and physical exam Lab Review: Laboratory results were reviewed and interpreted by myself the emergency room physician. Leukocytosis with a white count of 13,000. Hemoglobin is 16.6. BUN and creatinine are 62 and 1.0. She often has an elevated BUN but this is quite a bit more than usual. I would have concern for upper GI bleed particular given that she vomited profusely but her hemoglobin is still 16.6. And the vomiting was overnight. Urinalysis shows no infection. CT head: No acute intracranial process. no intracranial hemorrhage, no evidence of infarct. no evidence of acute fracture.This was reviewed and interpreted by myself the ER physician. CT of the cervical spine: No fracture. Good alignment. No step-offs. This was reviewed and interpreted by myself the emergency room physician. I also reviewed the radiologist report. CT of the facial bones: No fracture. She does have some bruising. X-ray of the right knee: No acute process. Prosthesis is in place. Chest x-ray: No acute process. No infiltrate. No pneumothorax. No cardiomegaly. This was reviewed and interpreted by myself the ER physician. CT of the abdomen pelvis without contrast: No acute process. I reviewed the radiologist report EKG: Time 1107 rate 112 sinus tachycardia, No ST-T changes, no ectopy, normal MO & QRS intervals, This was reviewed and interpreted by myself the ER physician at 1109. I reviewed the patient's medical record. Reexamination: Patient says she still feels terrible quite a bit of malaise. Some pain from her fall. She is still a bit tachycardic. Blood pressure has improved some to 111/51 with a heart rate of 102. No altered mental status. No focal motor deficits. No increased work of breathing. Lab Data 03/21/24 09:00 03/21/24 09:00 Radiology Impressions Knee X-Ray 03/21/24 09:05 IMPRESSION: 1. No evidence of acute fracture or hardware complication. 2. Small effusion. Chest X-Ray 03/21/24 10:06 IMPRESSION: No acute findings. Laboratory Results WBC 12.92 10^3/uL (3.29-11.43) H 03/21/24 09:00 RBC 6.00 10^6/uL (3.85-5.65) H 03/21/24 09:00 Hgb 16.60 g/dL (11.27-16.99) 03/21/24 09:00 Hct 47.0 % (36-47) 03/21/24 09:00 MCV 78.3 fl (85-98) L 03/21/24 09:00 MCH 27.7 pg (27-33) 03/21/24 09:00 MCHC 35.3 g/dL (30-55) 03/21/24 09:00 RDW 14.0 % (12.1-15.1) 03/21/24 09:00 Plt Count 292 10^3/cmm (157-399) 03/21/24 09:00 MPV 10.6 fL (7.4-10.4) H 03/21/24 09:00 Neut % (Auto) 91.5 % 03/21/24 09:00 Lymph % (Auto) 3.4 % 03/21/24 09:00 [place]quois % (Auto) 4.1 % 03/21/24 09:00 Eos % (Auto) 0.2 % 03/21/24 09:00 Baso % (Auto) 0.3 % 03/21/24 09:00 Neut # (Auto) 11.83 10^3/uL (1.8-7.7) H 03/21/24 09:00 Lymph # (Auto) 0.4 10^3/uL (0.8-4.8) L 03/21/24 09:00 [place] # (Auto) 0.5 10^3/uL (0.2-0.9) 03/21/24 09:00 Eos # (Auto) 0.0 10^3/uL (0.0-0.8) 03/21/24 09:00 Baso # (Auto) 0.0 10^3/uL (0.0-0.1) 03/21/24 09:00 Nucleated RBC % (auto) 0 % 03/21/24 09:00 Nucleated RBCs # 0.0 /100WBC 03/21/24 09:00 Sodium 138 mmol/L (136-145) 03/21/24 09:00 Potassium 3.8 mmol/L (3.5-5.1) 03/21/24 09:00 Chloride 96 mmol/L (98-107) L 03/21/24 09:00 Carbon Dioxide 22 mmol/L (22-29) 03/21/24 09:00 Anion Gap 23.8 (5-19) H 03/21/24 09:00 BUN 62 mg/dL (8-23) H 03/21/24 09:00 Creatinine 1.0 mg/dL (0.5-0.9) H 03/21/24 09:00 GFR Calculation 56.4 mL/min (90-130) L 03/21/24 09:00 Glucose 169 mg/dL (65-115) H 03/21/24 09:00 POC Glucose 162 mg/dL (70-110) H 03/21/24 09:14 Calculated Osmolality 308 mOsm/kg (285-295) H 03/21/24 09:00 Lactic Acid 2.6 mmol/L (0.5-2.2) H 03/21/24 09:00 Lactic Acid (Sepsis) 1.0 mmol/L (0.5-2.2) 03/21/24 12:58 Calcium 10.1 mg/dL (8.5-10.5) 03/21/24 09:00 Total Bilirubin 0.5 mg/dL (0.15-1.2) 03/21/24 09:00 AST 41 U/L (0-32) H 03/21/24 09:00 ALT 44 U/L (0-33) H 03/21/24 09:00 Alkaline Phosphatase 89 U/L (35-105) 03/21/24 09:00 Creatine Kinase 79 U/L (26-192) 03/21/24 11:01 Troponin T Baseline 25 ng/L (0-10) H 03/21/24 09:00 Troponin T 120 Minute 24.64 ng/L (0-10) H 03/21/24 11:01 Delta Troponin T -0.36 ABS# (0-10) L 03/21/24 11:01 Troponin T Hi Sens 6Hr 33.52 ng/L (0-10) H 03/21/24 14:54 Troponin T Hi Sens 6Hr Delta 8.52 ng/L (0-12) 03/21/24 14:54 C-Reactive Protein 8.1 mg/L (0.0-4.9) H 03/21/24 09:00 Total Protein 6.7 g/dL (6.6-8.7) 03/21/24 09:00 Albumin 4.5 g/dL (3.5-5.2) 03/21/24 09:00 Globulin 2.2 g/dL (1.3-4.6) 03/21/24 09:00 Lipase 36 U/L (13-60) 03/21/24 09:00 Urine Color Yellow (Yellow) 03/21/24 11:43 Urine Appearance Clear (CLEAR) 03/21/24 11:43 Urine pH 5 (5-7) 03/21/24 11:43 Ur Specific [place] 1.015 (1.005-1.030) 03/21/24 11:43 Urine Protein Neg (Negative) 03/21/24 11:43 Urine Glucose (UA) Norm (Normal) 03/21/24 11:43 Urine Ketones 2+ (Negative) H 03/21/24 11:43 Urine Blood Neg (Negative) 03/21/24 11:43 Urine Nitrate Negative (Negative) 03/21/24 11:43 Urine Bilirubin Neg (Negative) 03/21/24 11:43 Urine Urobilinogen Norm mg/dL (Negative) 03/21/24 11:43 Ur Leukocyte Esterase Negative (Negative) 03/21/24 11:43 Urine RBC None /hpf (0-2) 03/21/24 11:43 Urine WBC Rare /hpf (0-5) 03/21/24 11:43 Ur Squamous Epith Cells Rare /hpf (0-5) 03/21/24 11:43 Amorphous Sediment Not Reportable 03/21/24 11:43 Urine Bacteria None /hpf (NONE) 03/21/24 11:43 Influenza Type A Ag negative (Negative) 03/21/24 10:30 Influenza Type B Ag negative (Negative) 03/21/24 10:30 SARS-CoV-2 Ag (Rapid) negative (Negative) 03/21/24 10:30 All radiology interpretation(s) finalized by discharge Otehr Data Assessment and plan: Nausea and vomiting Dehydration Acute renal insufficiency Tachycardia Facial injury Syncope -Patient has received 2 L normal saline bolus, IV Zofran and IV morphine. -Blood pressure still a bit soft. Her BUN is 64 with a creatinine of 1. -I discussed the patient with the hospitalist on-call who is admitting the patient. - Discussed findings and plan with patient. Answered any questions. - All laboratory values were reviewed and interpreted personally by myself, the ER physician - All imaging was reviewed and interpreted personally by myself, the ER physician. - Evaluation and treatment of this problem were appropriate in the emergency setting -Length of stay longer secondary to prolonged time to get a urinalysis. Patient had nausea and vomiting with some upper abdominal pain. With her having acute renal insufficiency I waited for the urine come back as a but this might be the source when this was not CT was ordered of her belly so overall this took quite a bit more time than expected Discharge Plan Discharge Patient Disposition: Admitted As Inpatient Admit Provider: Ethel Olson Clinical Impression: Nausea & vomiting, Renal insufficiency, Syncope, Tachycardia, Facial injury, Hypotension Condition: Stable Coding Level of Care Code ED Security Director for Fidencio Boland
--- NOTE | 2024-03-21 10:06 | XRR_ITS ---
PROCEDURE INFORMATION: Exam: XR Chest Exam date and time: 03/21/2024 10:14 AM Age: 63 years old Clinical indication: Other: Weakness; Additional info: Weakness TECHNIQUE: Imaging protocol: Radiologic exam of the chest. Views: 1 view. COMPARISON: CR XR chest 1V portable [id number] 11/17/2023 1:05 PM FINDINGS: Lungs: Unremarkable. No consolidation. Pleural spaces: Unremarkable. No pleural effusion. No pneumothorax. Heart/Mediastinum: Unremarkable. No cardiomegaly. Bones/joints: Unremarkable. XR/XR chest 1V [id number] IMPRESSION: No acute findings.
[2024-03-21 10:58] LABS: Influenza A by IFA negative (Negative); Influenza B by IFA negative (Negative)
[2024-03-21 10:59] LABS: SARS Covid-2 Antigen negative (Negative)
--- NOTE | 2024-03-21 11:07 | ECG_ITS ---
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 Measurements Intervals [place] Rate: 112 P: -13 [place]: 166 QRS: -16 QRSD: 72 T: 53 QT: 333 QTc: 456 Interpretive Statements SINUS TACHYCARDIA LOW QRS VOLTAGE [QRS DEFLECTION < 0.5/1.0 mV IN LIMB/CHEST LEADS] Compared to ECG 11/17/2023 05:54:42 Myocardial infarct finding no longer present Electronically Signed On 03-22-2024 19:50:23 CDT by Jr Landrum M.D. [id number]
[2024-03-21 11:12] LABS: Reflex Lactate Order REFLEX LACTIC ORDERD
[2024-03-21 11:27] LABS: Troponin 5 2HR 24.64 ng/L (0-10)
[2024-03-21 11:33] LABS: Troponin 5 2HR Delta -0.36 ABS# (0-10)
[2024-03-21 12:15] LABS: Bilirubin Urine Neg (Negative); Blood Urine Neg (Negative); Glucose Urine UA Norm (Normal); Ketones Urine 2+ (Negative); Leukocyte Esterase Urine Negative (Negative); Nitrate Urine Negative (Negative); Protein Urine Neg (Negative); Specific Gravity, Urine 1.015 (1.005-1.030); Squamous Epithelial Cell Urine RARE /hpf (0-5); Urine Appearance Clear (CLEAR); Urine Color Yellow (Yellow); Urobilinogen Urine Norm (Negative); WBC Urine RARE /hpf (0-5); pH Urine 5 (5-7)
--- NOTE | 2024-03-21 12:56 | CT_ITS ---
WS: [id number] CT ABDOMEN AND PELVIS NONCONTRAST HISTORY: Abdominal pain TECHNIQUE: Imaging performed through the abdomen and pelvis. Coronal and sagittal reformats are submi tted. All CT scans at [facility] use at least one of these dose optimization techniques: auto mated exposure control; mA and/or kV adjustment per patient size (includes targeted exams where dose is matched to clinical indication); or iterative reconstruction. DLP: 538.03 mGy.cm COMPARISON: None available. Lower thorax: Lung bases are clear. Visualized heart is normal. No hiatal hernia. Liver: Normal size liver. No mass or bile duct dilatation. Gallbladder: Prior cholecystectomy. Pancreas: Normal size and attenuation. Normal pancreatic duct. No pancreatitis or mass. Spleen: Normal. Adrenal glands: Mild LEFT adrenal hyperplasia. Right kidney: Normal size kidney with no mass or hydronephrosis. Left kidney: Normal size kidney with no mass or hydronephrosis. Aorta: Mild atherosclerosis abdominal aorta with no aneurysm. No free fluid, intraperitoneal air or significant lymphadenopathy. GI tract: Nondistended stomach. No small bowel obstruction. Mild diffuse constipation. Normal appendi x. Abdominal wall: There is subcu and soft tissue stranding around the abdomen and pelvis from anasarca. No focal hematoma. Pelvis: Normally distended bladder. Midline uterus. Osseous structures: Advanced degenerative disc disease at L4-5. Visualized ribs and spine are negativ e. IMPRESSION: 1. No acute abdominal or pelvic abnormalities identified on this unenhanced exam. No ascites or free air. 2. Soft tissue anasarca over the abdomen and pelvis. 3. Prior cholecystectomy.
[2024-03-21] MEDS: morphine 4 mg/mL SDV 1 mL IVP (13:57)
[2024-03-21] MEDS: ondansetron 2 mg/ML SDV 2 mL 4 MG IVP (13:57)
[2024-03-21 14:26] LABS: Creatine Phosphokinase 79 U/L (26-192)
--- NOTE | 2024-03-21 15:07 | ECG_ITS ---
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 Measurements Intervals [place] Rate: 106 P: -16 [place]: 155 QRS: -15 QRSD: 75 T: 51 QT: 341 QTc: 454 Interpretive Statements SINUS TACHYCARDIA LOW QRS VOLTAGE [QRS DEFLECTION < 0.5/1.0 mV IN LIMB/CHEST LEADS] SEPTAL MYOCARDIAL INFARCTION , PROBABLY OLD [40+ ms Q WAVE IN V1/V2] Compared to ECG 03/21/2024 11:07:18 Myocardial infarct finding now present Electronically Signed On 03-22-2024 19:57:04 CDT by Jr Landrum M.D. [email or web address]/store/[id number]
[2024-03-21 15:18] LABS: Troponin 5 6HR 33.52 ng/L (0-10); Troponin 5 6HR Delta 8.52 ng/L (0-12)
[2024-03-21 17:12] LABS: Glucose Point of Care 128 mg/dL (70-110)
[2024-03-21] MEDS: heparin 5,000 unit/mL INJ 1 mL 5000 UNIT SUBCUT (17:38)
[2024-03-21] MEDS: sodium chloride 0.9% 1,000 ML 125 ML IV (17:38)
[2024-03-21 18:33] LABS: Procalcitonin 0.17 ng/mL (0-0.5); Thyroid Stimulating Hormone 0.39 uIU/mL (0.27-4.20)
[2024-03-21] MEDS: acetaminophen 325 mg Tablet 650 MG PO (19:23)
--- NOTE | 2024-03-21 20:34 | P.HP_ITS ---
Providers/Chief Complaint 2 Admitting Physician: Ethel Olson MD Primary Care Provider: Rocael Montaño DO Chief Complaint: flu like symptoms History of Present Illness Roxanne Lee is a 63 year old female who has very well-controlled diabetes, follows up with Dr. Mitchell, gets hypotensive with antihypertensive regimen however tolerating combination of hydrochlorothiazide and spironolactone presented with chief complaint recurrent nausea vomiting patient is stating that she normally eats at home, she has not noticed any significant diarrhea, her symptoms started around night, she has 1520 episode nausea and vomiting. She is endorsing low-grade fever 99.9. Patient stating that she normally eats Ritz crackers along with peanut butter at nighttime before she goes to bed. Her blood pressure and blood sugar stays well-controlled. She recently has not used any antibiotics. In the ER CT abdomen pelvis did not show any acute pathological changes Clinically she is dehydrated No active chest pain EKG unremarkable Troponin with negative delta TSH is normal No signs of UTI Flu panel is negative Patient is stating that she fell as well and she is hurting all over her body, stating that she woke up around midnight she was try to go to the bathroom when she fell on the floor and woke up after a few hours She did not notice any focal deficits chest pain or seizure-like activity Trauma rossi scan negative for fractures Review of Systems 2 Const: Denies: fever(s) Eyes: Denies: change in vision ENMT: Denies: throat pain Card: Denies: chest pain Resp: Denies: dyspnea GI: Reports: nausea and vomiting : Denies: flank pain Medications/Allergies Home Medications Medication Instructions Recorded Confirmed Last Taken Type aspirin 81 mg tablet,delayed 81 mg PO QDAY 12/22/19 03/21/24 03/20/24 History release cqghilna-wdf-jzvmt ac 400 1 tab PO DAILY 12/22/19 03/21/24 03/20/24 History mcg-calcium carb 500 mg-vit K1 20 mcg tablet (Women's 50 Plus Multivitamin) flash glucose scanning reader #1 ea 05/16/22 03/21/24 Unknown Rx (FreeStyle Cameron 2 [place]) Custom Orthotic AFO Brace #1 ea 07/16/23 03/21/24 Unknown Rx biotin 10,000 mcg capsule 1 cap PO DAILY 10/09/23 03/21/2403/20/24 History alprazolam 0.25 mg tablet 0.25 mg PO QID PRN anxiety #120 10/15/23 03/21/24 03/20/24 Rx tabs levothyroxine 75 mcg tablet 75 mcg PO QDAY #90 tabs 10/15/23 03/21/24 03/20/24 Rx oxybutynin chloride 10 mg 10 mg PO QDAY #90 tabs 11/07/23 03/21/24 03/20/24 Rx tablet,extended release 24 hr fluconazole 150 mg tablet See Rx Instructions .Route 11/14/23 03/21/24 Unknown History .COMPLEX PRN yeast loratadine 10 mg tablet (Claritin) 10 mg PO DAILY 11/14/23 03/21/24 03/20/24 History tramadol 50 mg tablet 50 mg PO Q8H PRN pain 7 days #21 11/29/23 03/21/24 Unknown Rx tabs flash glucose sensor (FreeStyle #9 kits 12/25/23 03/21/24 Unknown Rx Cameron 2 Sensor kit) mupirocin 2 % topical ointment 1 applic topical BID #22 grams 01/28/24 03/21/24 Unknown Rx spironolactone 25 1 tab PO DAILY 02/08/24 03/21/24 03/20/24 History mg-hydrochlorothiazide 25 mg tablet tirzepatide 15 mg/0.5 mL 15 mg (0.5 mL) SUBCUT Q7D 90 days 02/08/24 03/21/24 Unknown Rx subcutaneous pen injector #45 mL (Bartolo) ascorbic acid (vitamin C) 500 mg 250 mg PO DAILY 03/21/24 03/21/24 03/20/24 History tablet (Vitamin C) atorvastatin 80 mg tablet 80 mg PO BEDTIME 03/21/24 03/21/24 03/20/24 History calcium carbonate 500 mg PO DAILY 03/21/24 03/21/24 03/20/24 History chlorhexidine gluconate 0.12 % See Rx Instructions .Route .COMPLEX 03/21/24 03/21/24 Unknown History mouthwash cholecalciferol (vitamin D3) 50 50 mcg PO DAILY 03/21/24 03/21/24 03/20/24 History mcg (2,000 unit) capsule (Vitamin D3) latanoprost 0.005 % eye drops 1 drp ophthalmic (eye) QPM 03/21/24 03/21/24 03/20/24 History nystatin 100,000 unit/gram topical 1 applic topical BID 03/21/24 03/21/24 Unknown History powder omeprazole 20 mg capsule,delayed 20 mg PO BID 03/21/24 03/21/24 03/20/24 History release zolpidem 10 mg tablet 10 mg PO BEDTIME 03/21/24 03/21/24 03/20/24 History Allergies Allergy/AdvReac Type Severity Reaction Status Date / Time No Known Allergies Allergy Verified 02/08/24 08:31 PFSH Acute 2 PFSH: Medical History Acute pain of right knee 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 Performed by Dr. Dailey at [facility] in [place], [place]. Family History Father Diabetes Hypertension Stroke Hypercholesteremia Social History Substance/Drug Use: never Vitals/I&O/Wt Last Vital Signs Temp 98.2 F 03/21/24 19:42 Pulse 92 03/21/24 19:42 Resp 18 03/21/24 19:42 BP 130/72 03/21/24 19:42 Pulse Ox 98 03/21/24 19:42 O2 Del Method Room Air 03/21/24 19:42 03/21/24 03/21/24 03/21/24 06:59 14:59 22:59 Intake Total 3060 / 3060 Output Total 350 / 350 Balance 2710 / 2710 Weight last 48 hrs Weight 66.678 kg Weight 66.678 kg Physical Exam 2 Narrative: Clinical signs of fluid depletion Hypovolemic Dehydrated GCS 15 Sinus tachycardia Awake and alert Currently on room air Clinical signs of dehydration present Nonfocal neuroexam Bruise around her chin No active sign of fracture Pleasant cooperative nonfocal neuroexam Data 03/21/24 09:00 03/21/24 09:00 Micro: Microbiology 03/21/24 09:37 Blood Culture - Preliminary Blood SPECIMEN COLLECTED 03/21/24 09:32 Blood Culture - Preliminary Blood SPECIMEN COLLECTED A&P Assessment and plan (1) Hypotension: (2) Tachycardia: (3) Gastritis: Plan Gastritis Recurrent nausea vomiting Etiology unclear CT abdomen pelvis unremarkable No diarrhea No fever Mild leukocytosis noted Could be stress leukemoid reaction I will give her IV fluid hydration and symptomatic treatment No need of antibiotics at this point Continue IV fluids along with GI cocktail and Protonix Will change her diet to brat diet along insulin sliding scale Continue levothyroxine Full code Advance diet gradually Request PT and orthostatics Hypotension related dehydration: Improving No sign of ischemic changes on EKG Attestations 2 Medical Necessity Statement*: Anticipating discharge within 48 hours Diagnoses Hypotension I95.9 Tachycardia R00.0 Gastritis K29.70
[2024-03-21] MEDS: lidocaine 2% viscous 15 ML, aluminum-mag hydrox-simethicon 30 ML, sucralfate oral liq 1 GM PO (21:57)
[2024-03-22] VITALS: BP 101/54; PULSE 90; RESP 16; TEMP 37.1; O2SAT 96
[2024-03-22] MEDS: sodium chloride 0.9% 1,000 ML 100 ML IV (01:58)
[2024-03-22 04:00] VITALS: BP 113/70; PULSE 94; RESP 15; TEMP 36.6; O2SAT 94
[2024-03-22] MEDS: heparin 5,000 unit/mL INJ 1 mL 5000 UNIT SUBCUT (04:07)
[2024-03-22 05:25] LABS: Basophils % 0.6 %; Eosinophils % 0.4 %; Hematocrit 35.2 % (36-47); Lymphocytes # 0.7 10^3/uL (0.8-4.8); Lymphocytes % 14.7 %; Mean Corpuscular HGB Conc 33.5 g/dL (30-55); Mean Corpuscular Hemoglobin 27.5 pg (27-33); Mean Corpuscular Volume 82.1 fl (85-98); Mean Platelet Volume 10.7 fL (7.4-10.4); Monocytes # 0.8 10^3/uL (0.2-0.9); Monocytes % 14.9 %; Neutrophils % 69.2 %; Nucleated Red Blood Cells % 0 %; Platelet Count 184 10^3/cmm (157-399); Red Blood Count 4.29 10^6/uL (3.85-5.65); Red Cell Distribution Width 14.5 % (12.1-15.1); White Blood Count 5.05 10^3/uL (3.29-11.43)
[2024-03-22 05:44] LABS: Alanine Aminotransferase 26 U/L (0-33); Albumin Level 3.2 g/dL (3.5-5.2); Alkaline Phosphatase 56 U/L (35-105); Anion Gap 12.2 (5-19); Aspartate Amino Transferase 25 U/L (0-32); Blood Urea Nitrogen 41 mg/dL (8-23); Calcium 8.1 mg/dL (8.5-10.5); Carbon Dioxide 24 mmol/L (22-29); Chloride 108 mmol/L (98-107); Creatinine Clr Calc Pharmacy 65.9388; Globulin 1.8 g/dL (1.3-4.6); Glomerular Filtration Rate 63.7 mL/min (90-130); Glucose 90 mg/dL (65-115); Magnesium 1.1 mg/dL (1.7-2.3); Osmolality Calculated 302 mOsm/kg (285-295); Potassium 3.2 mmol/L (3.5-5.1); Sodium 141 mmol/L (136-145); Total Bilirubin 0.3 mg/dL (0.15-1.2)
[2024-03-22 05:50] VITALS: BMI 23.1
[2024-03-22 06:48] LABS: Glucose Point of Care 83 mg/dL (70-110)
[2024-03-22 08:18] VITALS: BP 106/64; PULSE 79; RESP 18; TEMP 37.1; O2SAT 96
[2024-03-22] MEDS: levothyroxine 75 mcg Tablet PO (08:43)
[2024-03-22] MEDS: potassium chloride ER 20 mEq Tablet 40 MEQ PO ×2 (08:43→12:35)
[2024-03-22] MEDS: acetaminophen 325 mg Tablet 650 MG PO (08:43)
[2024-03-22] MEDS: pantoprazole DR 40 mg Tablet PO (08:43)
[2024-03-22] MEDS: ondansetron 2 mg/ML SDV 2 mL 4 MG IVP (08:47)
[2024-03-22 10:00] VITALS: PULSE 81; O2SAT 96
[2024-03-22 11:48] LABS: Glucose Point of Care 142 mg/dL (70-110)
--- NOTE | 2024-03-22 11:59 | PM.DCS ---
Discharge Providers Date of Admission: 03/21/24 15:36 Date of Discharge: March 22, 2024 Attending Provider at Admission: Ethel Olson MD Attending Provider at Discharge: Ethel Olson MD Primary Care Provider: Rocael Montaño DO Diagnoses at Discharge Discharge Diagnosis (1) Hypotension: Status: Resolved (2) Tachycardia: Status: Resolved (3) Gastritis: Status: Resolved Reason for Visit Reason for Visit: flu like symptoms Hospital Course Hospital Course Patient presented to the hospital with dehydration, nausea, vomiting. She was given IV fluids. Nausea vomiting resolved. Patient was discharged home with [place] to follow-up as an outpatient with her primary care doctor. She was able to tolerate an oral diet prior to discharge. Physical Exam Narrative: Appears euvolemic. GCS 15 Regular rate rhythm. Awake and alert Currently on room air Nonfocal neuroexam Bruise around her chin No active sign of fracture Pleasant cooperative nonfocal neuroexam Discharge Data Studies Completed and Pending Completed Studies During Hospitalization Category Date Time Status CT abdomen pelvis wo con 83137 Stat Cat Scan 03/21/24 12:[address] cervical spin wo con* [id number] Stat Cat Scan 03/21/24 09:[address] facial bones wo con* [id number] Stat Cat Scan 03/21/24 09:[address] head wo con* [id number] Stat Cat Scan 03/21/24 09:06 Completed XR chest 1V [id number] Stat Exams 03/21/24 10:06 Completed XR knee RT 3V* [id number] Stat Exams 03/21/24 09:05 Completed Pending at discharge Category Date Time Status Blood Culture Stat Lab 03/21/24 09:37 Results Radiology Impressions Knee X-Ray 03/21/24 09:05 IMPRESSION: 1. No evidence of acute fracture or hardware complication. 2. Small effusion. Chest X-Ray 03/21/24 10:06 IMPRESSION: No acute findings. Laboratory Results WBC 5.05 10^3/uL (3.29-11.43) 03/22/24 04:31 RBC 4.29 10^6/uL (3.85-5.65) 03/22/24 04:31 Hgb 11.80 g/dL (11.27-16.99) 03/22/24 04:31 Hct 35.2 % (36-47) L 03/22/24 04:31 MCV 82.1 fl (85-98) L 03/22/24 04:31 MCH 27.5 pg (27-33) 03/22/24 04:31 MCHC 33.5 g/dL (30-55) D 03/22/24 04:31 RDW 14.5 % (12.1-15.1) 03/22/24 04:31 Plt Count 184 10^3/cmm (157-399) D 03/22/24 04:31 MPV 10.7 fL (7.4-10.4) H 03/22/24 04:31 Neut % (Auto) 69.2 % 03/22/24 04:31 Lymph % (Auto) 14.7 % 03/22/24 04:31 [place] % (Auto) 14.9 % 03/22/24 04:31 Eos % (Auto) 0.4 % 03/22/24 04:31 Baso % (Auto) 0.6 % 03/22/24 04:31 Neut # (Auto) 3.50 10^3/uL (1.8-7.7) 03/22/24 04:31 Lymph # (Auto) 0.7 10^3/uL (0.8-4.8) L 03/22/24 04:31 [place] # (Auto) 0.8 10^3/uL (0.2-0.9) 03/22/24 04:31 Eos # (Auto) 0.0 10^3/uL (0.0-0.8) 03/22/24 04:31 Baso # (Auto) 0.0 10^3/uL (0.0-0.1) 03/22/24 04:31 Nucleated RBC % (auto) 0 % 03/22/24 04:31 Nucleated RBCs # 0.0 /100WBC 03/22/24 04:31 Sodium 141 mmol/L (136-145) 03/22/24 04:31 Potassium 3.2 mmol/L (3.5-5.1) L 03/22/24 04:31 Chloride 108 mmol/L (98-107) H 03/22/24 04:31 Carbon Dioxide 24 mmol/L (22-29) 03/22/24 04:31 Anion Gap 12.2 (5-19) 03/22/24 04:31 BUN 41 mg/dL (8-23) H 03/22/24 04:31 Creatinine 0.9 mg/dL (0.5-0.9) 03/22/24 04:31 GFR Calculation 63.7 mL/min (90-130) L 03/22/24 04:31 Glucose 90 mg/dL (65-115) 03/22/24 04:31 POC Glucose 142 mg/dL (70-110) H 03/22/24 11:24 Calculated Osmolality 302 mOsm/kg (285-295) H 03/22/24 04:31 Lactic Acid 1.0 mmol/L (0.5-2.2) 03/21/24 17:47 Lactic Acid (Sepsis) 1.0 mmol/L (0.5-2.2) 03/21/24 12:58 Calcium 8.1 mg/dL (8.5-10.5) L 03/22/24 04:31 Magnesium 1.1 mg/dL (1.7-2.3) L 03/22/24 04:31 Total Bilirubin 0.3 mg/dL (0.15-1.2) 03/22/24 04:31 AST 25 U/L (0-32) 03/22/24 04:31 ALT 26 U/L (0-33) 03/22/24 04:31 Alkaline Phosphatase 56 U/L (35-105) 03/22/24 04:31 Creatine Kinase 79 U/L (26-192) 03/21/24 11:01 Troponin T Baseline 25 ng/L (0-10) H 03/21/24 09:00 Troponin T 120 Minute 24.64 ng/L (0-10) H 03/21/24 11:01 Delta Troponin T -0.36 ABS# (0-10) L 03/21/24 11:01 Troponin T Hi Sens 6Hr 33.52 ng/L (0-10) H 03/21/24 14:54 Troponin T Hi Sens 6Hr Delta 8.52 ng/L (0-12) 03/21/24 14:54 C-Reactive Protein 8.1 mg/L (0.0-4.9) H 03/21/24 09:00 Total Protein 5.0 g/dL (6.6-8.7) L D 03/22/24 04:31 Albumin 3.2 g/dL (3.5-5.2) L 03/22/24 04:31 Globulin 1.8 g/dL (1.3-4.6) 03/22/24 04:31 Lipase 36 U/L (13-60) 03/21/24 09:00 Procalcitonin 0.17 ng/mL (0-0.5) 03/21/24 17:47 TSH 0.39 uIU/mL (0.27-4.20) 03/21/24 17:47 Urine Color Yellow (Yellow) 03/21/24 11:43 Urine Appearance Clear (CLEAR) 03/21/24 11:43 Urine pH 5 (5-7) 03/21/24 11:43 Ur Specific [place] 1.015 (1.005-1.030) 03/21/24 11:43 Urine Protein Neg (Negative) 03/21/24 11:43 Urine Glucose (UA) Norm (Normal) 03/21/24 11:43 Urine Ketones 2+ (Negative) H 03/21/24 11:43 Urine Blood Neg (Negative) 03/21/24 11:43 Urine Nitrate Negative (Negative) 03/21/24 11:43 Urine Bilirubin Neg (Negative) 03/21/24 11:43 Urine Urobilinogen Norm mg/dL (Negative) 03/21/24 11:43 Ur Leukocyte Esterase Negative (Negative) 03/21/24 11:43 Urine RBC None /hpf (0-2) 03/21/24 11:43 Urine WBC Rare /hpf (0-5) 03/21/24 11:43 Ur Squamous Epith Cells Rare /hpf (0-5) 03/21/24 11:43 Amorphous Sediment Not Reportable 03/21/24 11:43 Urine Bacteria None /hpf (NONE) 03/21/24 11:43 Influenza Type A Ag negative (Negative) 03/21/24 10:30 Influenza Type B Ag negative (Negative) 03/21/24 10:30 SARS-CoV-2 Ag (Rapid) negative (Negative) 03/21/24 10:30 Vitals Last Vital Signs Temp 98.8 F 03/22/24 08:18 Pulse 81 03/22/24 10:00 Resp 18 03/22/24 08:18 BP 106/64 03/22/24 08:18 Pulse Ox 96 03/22/24 10:00 O2 Del Method Room Air 03/22/24 10:00 Discharge Plan Discharge Patient Disposition: Home Condition: Stable Prescriptions: Continued aspirin 81 mg tablet,delayed release (DR/EC) 81 mg PO QDAY Hold Instructions: Resume on 12/13/23. Following 30 days of full strength aspirin Women's 50 Plus Multivitamin 400 mcg-500 mg calcium-20 mcg tablet 1 tab PO DAILY biotin 10,000 mcg capsule 1 cap PO DAILY (DME) Custom Orthotic AFO Brace See Rx Instructions .Route .MEDSUPPLY Qty: 1 0RF Rx Instructions: As directed by [employer] [place] spironolacton-hydrochlorothiaz 25-25 mg tablet 1 tab PO DAILY Mounjaro 15 mg/0.5 mL pen injector 15 mg SUBCUT Q7D 90 Days Qty: 45 1RF (DME) FreeStyle [place] 2 [place] Misc See Rx Instructions .Route Qty: 1 0RF Rx Instructions: Check BS 4-6 times a day. alprazolam 0.25 mg tablet 0.25 mg PO QID PRN (Reason: anxiety) Qty: 120 5RF Rx Instructions: may take 2-3 tabs or 0.75mg qhs for sleep. levothyroxine 75 mcg tablet 75 mcg PO QDAY Qty: 90 1RF oxybutynin chloride 10 mg tablet extended release 24hr 10 mg PO QDAY Qty: 90 1RF tramadol 50 mg tablet 50 mg PO Q8H PRN (Reason: pain) 7 Days Qty: 21 0RF (DME) FreeStyle [place] 2 Sensor Kit See Rx Instructions .ROUTE .COMPLEX Qty: 9 11RF Dose Instruction: CHANGE every 14 DAYS Rx Instructions: CHANGE every 14 DAYS mupirocin 2 % ointment 1 applic topical BID Qty: 22 5RF fluconazole 150 mg tablet See Rx Instructions .ROUTE .COMPLEX PRN (Reason: yeast ) Rx Instructions: TAKE 1 TABLET BY MOUTH every month FOR SKIN YEAST loratadine [Claritin] 10 mg Tablet 10 mg PO DAILY latanoprost 0.005 % drops 1 drp ophthalmic (eye) QPM calcium carbonate 500 mg calcium (1,250 mg) Tablet 500 mg PO DAILY Vitamin C 500 mg Tablet 250 mg PO DAILY chlorhexidine gluconate 0.12 % mouthwash See Rx Instructions .ROUTE .COMPLEX Rx Instructions: SWISH 15ML BY MOUTH TWICE DAILY for 7 days. Vitamin D3 50 mcg (2,000 unit) Capsule 50 mcg PO DAILY atorvastatin 80 mg tablet 80 mg PO BEDTIME omeprazole 20 mg capsule,delayed release(DR/EC) 20 mg PO BID nystatin 100,000 unit/gram powder 1 applic topical BID zolpidem 10 mg tablet 10 mg PO BEDTIME Discharge Orders: Discharge Order (Routine); Ordered 03/22/24 Ordered By: Ethel Olson Referrals: Rocael Montaño, [Primary Care Provider] - 4-7 days Discharge Diet: As Directed Discharge Activity: Resume usual activity Patient Instructions: [place] Diet - Adult, Gastritis (DC), Opioid Safety Discharge Attestations Time Spent in Discharge Care*: greater than 30 min Quality Metrics Clinical Quality Measures [ No reported AMI, CVA or VTE this stay] Coding Level of Care Code Acute Code for Chg Fwd Diagnoses Hypotension I95.9 Tachycardia R00.0 Gastritis K29.70
[2024-03-22] MEDS: magnesium sulfate premix 4 GM/100 ML PREMIX IV (12:36)
[2024-03-22 12:57] VITALS: BP 108/65; PULSE 76; RESP 18; TEMP 36.8; O2SAT 96
--- NOTE | 2024-03-22 13:14 | PC.NURSE ---
Discharge delay due to patient need a magnesium iv infusion.
[2024-03-22 14:53] VITALS: BP 108/65; PULSE 76; RESP 18; TEMP 36.8; O2SAT 96
== END 2024-03-22 15:01 | disposition home or self-care (01) ==
LOC: ER 14:14 → MEDSURG 15:52
PROVIDERS: Admitting Provider Internal Medicine; Emergency Provider Emergency Medicine; PCP Family Medicine; Visit Provider Internal Medicine
DX: I95.9 Hypotension, unspecified (principal); R00.0 Tachycardia, unspecified; K29.70 Gastritis, unspecified, without bleeding; Z91.81 History of falling; Z79.82 Long term (current) use of aspirin; I10 Essential (primary) hypertension; E78.00 Pure hypercholesterolemia, unspecified; E03.9 Hypothyroidism, unspecified; F41.9 Anxiety disorder, unspecified; E78.5 Hyperlipidemia, unspecified; E86.0 Dehydration; N28.9 Disorder of kidney and ureter, unspecified
CPT/HCPCS: 36415; 36416; 70450; 70486; 71045; 72125; 73562; 74176; 80053; 81001; 82550; 82962; 83605; 83690; 83735; 84145; 84443; 84484; 85025; 86140; 87040; 87426; 87804; 93005; 94664; 96361; 96365; 96372; 96375; 96376; 97110; 97161; 99285; G0378; J1644; J2270; J2405; J3475; J7030

== ENCOUNTER 2024-03-27 17:23 | Outpatient (CLI) | payer OTHER, SELFPAY ==
--- NOTE | 2024-03-27 17:25 | XR_ITS ---
WS: [email or web address] [id number] REASON FOR EXAM: s/p fall, right knee xray needed FINDINGS: RIGHT KNEE: Total right knee arthroplasty. Prosthetic components are intact and in proper position and alignment. No change compared to 03/21/2024. No acute fracture identified. LEFT KNEE: Mild changes of osteoarthritis with mild narrowing of the medial and lateral joint spaces and and mil d subchondral sclerosis of the tibial plateaus. No acute abnormality. XR/[place] [id number] IMPRESSION: Stable total right knee arthroplasty. Mild changes of osteoarthritis in the left knee. No acute abnormality of the right or left knee.
== END 2024-03-27 17:24 | disposition home or self-care (01) ==
LOC: RAD 17:24
PROVIDERS: PCP Family Medicine; Visit Provider Family Medicine
DX: M25.561 Pain in right knee (principal); W01.0XXA Fall on same level from slipping, tripping and stumbling without subsequent striking against object, initial encounter; M17.12 Unilateral primary osteoarthritis, left knee
CPT/HCPCS: 73565; 87624

== ENCOUNTER → 2024-04-23 15:16 | Outpatient (BNVA) | payer OTHER, SELFPAY | PROVIDERS: PCP Family Medicine; Visit Provider Obstetrics & Gynecology | DX: R10.2 Pelvic and perineal pain (principal) | CPT/HCPCS: 76830 ==

== ENCOUNTER 2024-08-04 09:00 | Outpatient (CLI) | payer OTHER, SELFPAY ==
[2024-08-04 09:24] LABS: Charge for UA Resulting for Rev
[2024-08-04 09:30] LABS: Bilirubin Urine Negative (Negative); Blood Urine Negative (Negative); Glucose Urine UA Negative (Normal); Ketones Urine Negative (Negative); Leukocyte Esterase Urine Negative (Negative); Nitrate Urine Negative (Negative); Protein Urine Negative (Negative); Urine Appearance Turbid (CLEAR); Urine Color Yellow (Yellow); Urobilinogen Urine 0.2 mg/dL (Negative)
[2024-08-04 09:45] LABS: Estmated Average Glucose 108; Hemoglobin A1C 5.4 % (4.0-6.0)
[2024-08-04 09:47] LABS: Creatinine Urine, Random 84 mg/dL (28-217); Microalbum Creatinine Ratio Ur 24 mg/dL (0-20); Microalbumin Random Urine 2 ug/dL (0-20); UA Manual Slide Review YES; UA Slide Review UA Slide Review Perf
[2024-08-04 09:48] LABS: Squamous Epithelial Cell Urine RARE /hpf (0-5); WBC Urine 0-4 /hpf (0-5)
[2024-08-04 09:49] LABS: Alanine Aminotransferase 38 U/L (0-33); Albumin Level 4.6 g/dL (3.5-5.2); Alkaline Phosphatase 104 U/L (35-105); Anion Gap 14.5 (5-19); Aspartate Amino Transferase 43 U/L (0-32); Blood Urea Nitrogen 39 mg/dL (8-23); Calcium 10.2 mg/dL (8.5-10.5); Carbon Dioxide 31 mmol/L (22-29); Chloride 99 mmol/L (98-107); Chol HDL Ratio 1.79 mg/dL (0.0-4.40); Cholesterol 102 mg/dL (0-200); Globulin 2.8 g/dL (1.3-4.6); Glomerular Filtration Rate 63.7 mL/min (90-130); Glucose 89 mg/dL (65-115); HDL Cholesterol 57 mg/dL (60-100); LDL Cholesterol Calculated 35 mg/dL (50-129); LDL HDL Ratio 0.61 RATIO (0.00-3.22); Osmolality Calculated 301 mOsm/kg (285-295); Potassium 3.5 mmol/L (3.5-5.1); Sodium 141 mmol/L (136-145); Total Bilirubin 0.4 mg/dL (0.15-1.2); Total Protein 7.4 g/dL (6.6-8.7); Triglycerides 48 mg/dL (0-150)
[2024-08-04 09:49] LABS: Add Urine Culture? No; Amorphous Sediment Urine 1+ /hpf; Other Crystals Urine TALC /hpf
[2024-08-04 09:52] LABS: Calcium 10.6 mg/dL (8.5-10.5)
[2024-08-04 09:59] LABS: Parathyroid Hormone 14.8 pg/mL (15-65)
[2024-08-04 11:36] LABS: 25 Hydroxy Vitamin D 111 ng/mL (30-100)
[2024-08-04 13:36] LABS: Free T4 Free Thyroxine 2.08 ng/dL (0.82-1.77)
[2024-08-06 10:11] LABS: Thyroid Stimulating Hormone 1.77 uIU/mL (0.27-4.20)
== END 2024-08-04 09:01 | disposition home or self-care (01) ==
LOC: LAB 09:02
PROVIDERS: PCP Family Medicine; Visit Provider Internal Medicine
DX: E11.649 Type 2 diabetes mellitus with hypoglycemia without coma (principal); E11.22 Type 2 diabetes mellitus with diabetic chronic kidney disease; E11.65 Type 2 diabetes mellitus with hyperglycemia; E03.9 Hypothyroidism, unspecified; E78.00 Pure hypercholesterolemia, unspecified; N39.0 Urinary tract infection, site not specified
CPT/HCPCS: 36415; 80053; 80061; 81003; 81015; 82044; 82306; 82310; 83036; 83970; 84439; 84443

== ENCOUNTER 2024-08-20 08:44 | Outpatient (CLI) | payer OTHER, SELFPAY ==
[2024-08-20 09:36] LABS: Free T4 Free Thyroxine 1.74 ng/dL (0.82-1.77)
== END 2024-08-20 08:45 | disposition home or self-care (01) ==
PROVIDERS: PCP Family Medicine; Visit Provider Internal Medicine
DX: E03.9 Hypothyroidism, unspecified (principal)
CPT/HCPCS: 36415; 84439

== ENCOUNTER 2024-11-11 09:00 | Outpatient (CLI) | payer OTHER, SELFPAY ==
[2024-11-11 09:58] LABS: Alanine Aminotransferase 45 U/L (0-33); Albumin Level 4.4 g/dL (3.5-5.2); Alkaline Phosphatase 109 U/L (35-105); Aspartate Amino Transferase 42 U/L (0-32); Blood Urea Nitrogen 34 mg/dL (8-23); Carbon Dioxide 30 mmol/L (22-29); Chloride 99 mmol/L (98-107); Chol HDL Ratio 1.74 mg/dL (0.0-4.40); Cholesterol 106 mg/dL (0-200); Free T4 Free Thyroxine 1.75 ng/dL (0.82-1.77); Globulin 2.6 g/dL (1.3-4.6); Glomerular Filtration Rate 85.1 mL/min (90-130); Glucose 117 mg/dL (65-115); HDL Cholesterol 61 mg/dL (60-100); LDL Cholesterol Calculated 33 mg/dL (50-129); LDL HDL Ratio 0.54 RATIO (0.00-3.22); Osmolality Calculated 299 mOsm/kg (285-295); Sodium 140 mmol/L (136-145); Thyroid Stimulating Hormone 1.26 uIU/mL (0.27-4.20); Total Bilirubin 0.5 mg/dL (0.15-1.2); Triglycerides 59 mg/dL (0-150)
[2024-11-11 10:07] LABS: Estmated Average Glucose 103; Hemoglobin A1C 5.2 % (4.0-6.0)
[2024-11-11 10:07] LABS: Creatinine Urine, Random 107 mg/dL (28-217); Microalbum Creatinine Ratio Ur 37 mg/dL (0-20); Microalbumin Random Urine 4 ug/dL (0-20)
[2024-11-11 10:08] LABS: Calcium 10.3 mg/dL (8.5-10.5)
[2024-11-11 10:13] LABS: Parathyroid Hormone 24.2 pg/mL (15-65)
[2024-11-11 10:58] LABS: 25 Hydroxy Vitamin D 75 ng/mL (30-100)
== END 2024-11-11 09:01 | disposition home or self-care (01) ==
LOC: LAB 09:01
PROVIDERS: PCP Family Medicine; Visit Provider Internal Medicine
DX: E67.3 Hypervitaminosis D (principal); E11.22 Type 2 diabetes mellitus with diabetic chronic kidney disease; E11.65 Type 2 diabetes mellitus with hyperglycemia; E03.9 Hypothyroidism, unspecified
CPT/HCPCS: 36415; 80053; 80061; 82044; 82306; 82310; 83036; 83970; 84439; 84443

== ENCOUNTER 2025-03-20 08:03 | Outpatient (CLI) | payer OTHER, SELFPAY ==
--- NOTE | 2025-03-20 | MM_ITS ---
WS: [id number] SCREENING DIGITAL BREAST TOMOSYNTHESIS MAMMOGRAM WITH CAD HISTORY: ANNUAL SCREENING COMPARISON: 03/19/2024, 03/16/2023 Bilateral CC and MLO with tomosynthesis and synthetic mammography submitted. Computer aided detection analyzed. Breast composition: There are scattered areas of fibroglandular density. Increasing asymmetry retroareolar LEFT breast. Asymmetry measures 13 x 13 mm and is seen is a rounded structure on MLO but more of an elongated structure extending laterally in the CC projection. This may be a prominent duct. Benign breast arterial calcifications. MM/MM [facility] tomosynthesis [id number] IMPRESSION: BI-RADS: 0 - Incomplete: Need additional imaging evaluation. FOLLOW UP: Need Additional Imaging LEFT breast: Spot compression views (CC and MLO). True ML. Ultrasound to follow if abnormality persists.
== END 2025-03-20 08:04 | disposition home or self-care (01) ==
PROVIDERS: PCP Family Medicine; Visit Provider Obstetrics & Gynecology
DX: Z12.31 Encounter for screening mammogram for malignant neoplasm of breast (principal); R92.323 Mammographic fibroglandular density, bilateral breasts; N63.10 Unspecified lump in the right breast, unspecified quadrant; R92.1 Mammographic calcification found on diagnostic imaging of breast
CPT/HCPCS: 77063; 77067

== ENCOUNTER 2025-04-13 08:54 | Outpatient (CLI) | payer OTHER, SELFPAY ==
--- NOTE | 2025-04-13 09:30 | MM_ITS ---
WS: [id number] ADDITIONAL VIEWS LEFT MAMMOGRAM WITH DIGITAL BREAST TOMOSYNTHESIS. LEFT breast ultrasound, limited HISTORY: Follow-up screening mammogram. COMPARISON: 03/20/2025, 03/19/2024 and 03/16/2023 Spot compression views LEFT breast in CC, MLO projections and true ML submitted with digital breast tomosynthesis and SM. Breast composition: The breasts are almost entirely fatty. The focal asymmetry in the retroareolar region persists but becomes less masslike. This may be normal fibroglandular density for this patient. There is no nipple retraction. Extensive vascular calcifications. Ultrasound will be performed. LEFT breast ultrasound, limited. Retroareolar tubular mass measures 2.3 x 2.1 x 0.5 cm and corresponds to the area seen on the recent mammogram. There are internal echoes but no increased vascularity. 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 MM/MM diag LT tomosynthesis [id number] IMPRESSION: BI-RADS: 3 - Probably Benign. 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
--- NOTE | 2025-04-13 10:00 | US_ITS ---
WS: [email or web address] ADDITIONAL VIEWS LEFT MAMMOGRAM WITH DIGITAL BREAST TOMOSYNTHESIS. LEFT breast ultrasound, limited HISTORY: Follow-up screening mammogram. COMPARISON: 03/20/2025, 03/19/2024 and 03/16/2023 Spot compression views LEFT breast in CC, MLO projections and true ML submitted with digital breast tomosynthesis and SM. Breast composition: The breasts are almost entirely fatty. The focal asymmetry in the retroareolar region persists but becomes less masslike. This may be normal fibroglandular density for this patient. There is no nipple retraction. Extensive vascular calcifications. Ultrasound will be performed. LEFT breast ultrasound, limited. Retroareolar tubular mass measures 2.3 x 2.1 x 0.5 cm and corresponds to the area seen on the recent mammogram. There are internal echoes but no increased vascularity. 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 US/US breast LT limited* [id number] IMPRESSION: BI-RADS: 3 - Probably Benign. 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
== END 2025-04-13 08:55 | disposition home or self-care (01) ==
PROVIDERS: PCP Family Medicine; Visit Provider Obstetrics & Gynecology
DX: R92.8 Other abnormal and inconclusive findings on diagnostic imaging of breast (principal); R92.313 Mammographic fatty tissue density, bilateral breasts; R92.1 Mammographic calcification found on diagnostic imaging of breast; N64.89 Other specified disorders of breast
CPT/HCPCS: 76642; 77061; G0279

== ENCOUNTER 2025-05-28 09:58 | Outpatient (CLI) | payer OTHER, SELFPAY ==
[2025-05-28 10:45] LABS: Glucose Urine UA Negative (Normal); Nitrate Urine Negative (Negative); Specific Gravity, Urine 1.020 (1.005-1.030)
[2025-05-28 10:47] LABS: Estmated Average Glucose 111; Hemoglobin A1C 5.5 % (4.0-6.0)
[2025-05-28 10:47] LABS: Add Urine Microscopic? YES
[2025-05-28 11:02] LABS: Creatinine Urine, Random 95 mg/dL (28-217)
[2025-05-28 11:04] LABS: Microalbum Creatinine Ratio Ur 63 mg/dL (0-20)
[2025-05-28 11:09] LABS: Alanine Aminotransferase 28 U/L (0-33); Albumin Level 4.6 g/dL (3.5-5.2); Alkaline Phosphatase 82 U/L (35-105); Anion Gap 17.7 (5-19); Aspartate Amino Transferase 25 U/L (0-32); Blood Urea Nitrogen 47 mg/dL (8-23); Calcium 10.3 mg/dL (8.5-10.5); Carbon Dioxide 28 mmol/L (22-29); Chloride 96 mmol/L (98-107); Cholesterol 109 mg/dL (0-200); Globulin 2.7 g/dL (1.3-4.6); Glucose 120 mg/dL (65-115); HDL Cholesterol 51 mg/dL (60-100); Osmolality Calculated 299 mOsm/kg (285-295); Potassium 3.7 mmol/L (3.5-5.1); Sodium 138 mmol/L (136-145); Thyroid Stimulating Hormone 1.60 uIU/mL (0.27-4.20); Total Protein 7.3 g/dL (6.6-8.7); Triglycerides 72 mg/dL (0-150)
[2025-05-28 11:17] LABS: UA Slide Review UA Slide Review Perf
[2025-05-28 11:18] LABS: Other Crystals Urine STARCH /hpf
[2025-05-28 13:09] LABS: Free T4 Free Thyroxine 1.89 ng/dL (0.82-1.77)
== END 2025-05-28 09:59 | disposition home or self-care (01) ==
PROVIDERS: PCP Family Medicine; Visit Provider Internal Medicine
DX: E03.9 Hypothyroidism, unspecified (principal); E11.22 Type 2 diabetes mellitus with diabetic chronic kidney disease; E11.65 Type 2 diabetes mellitus with hyperglycemia; E11.649 Type 2 diabetes mellitus with hypoglycemia without coma; E67.3 Hypervitaminosis D; E83.52 Hypercalcemia; N39.0 Urinary tract infection, site not specified
CPT/HCPCS: 36415; 80053; 80061; 81001; 82044; 82306; 83036; 84439; 84443

== ENCOUNTER → 2025-06-08 10:49 | Outpatient (BNVA) | payer OTHER, SELFPAY | PROVIDERS: PCP Family Medicine; Visit Provider Obstetrics & Gynecology | DX: Z91.89 Other specified personal risk factors, not elsewhere classified (principal) | CPT/HCPCS: 87624 ==

== ENCOUNTER 2025-06-11 16:43 | Outpatient (CLI) | payer OTHER, SELFPAY ==
[2025-06-11 20:03] LABS: Free T4 Free Thyroxine 2.03 ng/dL (0.82-1.77)
== END 2025-06-11 16:44 | disposition home or self-care (01) ==
PROVIDERS: PCP Family Medicine; Visit Provider Internal Medicine
DX: E67.3 Hypervitaminosis D (principal); E83.52 Hypercalcemia; E11.649 Type 2 diabetes mellitus with hypoglycemia without coma; E11.22 Type 2 diabetes mellitus with diabetic chronic kidney disease; E11.65 Type 2 diabetes mellitus with hyperglycemia; E78.00 Pure hypercholesterolemia, unspecified; E03.9 Hypothyroidism, unspecified
CPT/HCPCS: 36415; 84439

== ENCOUNTER 2025-07-02 16:42 | Outpatient (CLI) | payer OTHER, SELFPAY ==
[2025-07-02 20:22] LABS: Free T4 Free Thyroxine 1.81 ng/dL (0.82-1.77)
== END 2025-07-02 16:43 | disposition home or self-care (01) ==
PROVIDERS: PCP Family Medicine; Visit Provider Internal Medicine
DX: E03.9 Hypothyroidism, unspecified (principal)
CPT/HCPCS: 36415; 84439

== ENCOUNTER 2025-08-31 08:18 | Outpatient (CLI) | payer OTHER, SELFPAY ==
[2025-08-31 09:52] LABS: Creatinine Urine, Random 87 mg/dL (28-217); Microalbum Creatinine Ratio Ur 23 mg/dL (0-20)
[2025-08-31 09:54] LABS: Estmated Average Glucose 105; Hemoglobin A1C 5.3 % (4.0-6.0)
[2025-08-31 10:14] LABS: Alanine Aminotransferase 33 U/L (0-33); Albumin Level 4.3 g/dL (3.5-5.2); Alkaline Phosphatase 87 U/L (35-105); Anion Gap 14.9 (5-19); Aspartate Amino Transferase 32 U/L (0-32); Blood Urea Nitrogen 40 mg/dL (8-23); Calcium 10.1 mg/dL (8.5-10.5); Carbon Dioxide 30 mmol/L (22-29); Chloride 97 mmol/L (98-107); Cholesterol 90 mg/dL (0-200); Globulin 2.5 g/dL (1.3-4.6); Glucose 105 mg/dL (65-115); HDL Cholesterol 46 mg/dL (60-100); Osmolality Calculated 296 mOsm/kg (285-295); Potassium 3.9 mmol/L (3.5-5.1); Sodium 138 mmol/L (136-145); Thyroid Stimulating Hormone 1.54 uIU/mL (0.27-4.20); Total Protein 6.8 g/dL (6.6-8.7); Triglycerides 66 mg/dL (0-150)
[2025-08-31 10:38] LABS: Free T4 Free Thyroxine 1.89 ng/dL (0.82-1.77)
== END 2025-08-31 08:19 | disposition home or self-care (01) ==
LOC: LAB 08:19
PROVIDERS: PCP Family Medicine; Visit Provider Internal Medicine
DX: E03.9 Hypothyroidism, unspecified (principal); E67.3 Hypervitaminosis D; E83.52 Hypercalcemia; E11.649 Type 2 diabetes mellitus with hypoglycemia without coma; E11.22 Type 2 diabetes mellitus with diabetic chronic kidney disease; E11.65 Type 2 diabetes mellitus with hyperglycemia; E78.00 Pure hypercholesterolemia, unspecified
CPT/HCPCS: 36415; 80053; 80061; 82044; 82306; 83036; 84439; 84443

== ENCOUNTER 2025-10-06 09:07 | Outpatient (CLI) | payer OTHER, SELFPAY ==
--- NOTE | 2025-10-06 09:30 | US_ITS ---
WS: [email or web address] ULTRASOUND LEFT BREAST, limited HISTORY: R92.8 - Other abnormal and inconclusive findings on diagn... COMPARISON: 04/13/2025 TECHNIQUE: 2-D and Doppler. Reidentified is the tubular hypoechoic mass retroareolar which was previously described. Tubular mass is probably a duct with inspissated debris. No increased vascularity. There is been some very slight decrease in the diameter of the duct. Patient denies nipple discharge. US/US breast LT limited* [id number] IMPRESSION: BI-RADS: 3- Probably Benign FOLLOW-UP: 6 Month Follow-up Patient to return in 6 months for annual mammogram. At that time ultrasound gt uld be performed of the tubular structure LEFT retroareolar region. Favor duct ectasia. No progression or increased vascularity.
== END 2025-10-06 09:08 | disposition home or self-care (01) ==
PROVIDERS: PCP Family Medicine; Visit Provider Obstetrics & Gynecology
DX: R92.8 Other abnormal and inconclusive findings on diagnostic imaging of breast (principal); N63.20 Unspecified lump in the left breast, unspecified quadrant
CPT/HCPCS: 76642

== ENCOUNTER 2025-10-29 17:03 | Outpatient (CLI) | payer OTHER, SELFPAY ==
[2025-10-29 21:34] LABS: Free T4 Free Thyroxine 1.48 ng/dL (0.82-1.77); Thyroid Stimulating Hormone 1.32 uIU/mL (0.27-4.20)
== END 2025-10-29 17:04 | disposition home or self-care (01) ==
PROVIDERS: PCP Family Medicine; Visit Provider Internal Medicine
DX: E67.3 Hypervitaminosis D (principal); E83.52 Hypercalcemia; E11.649 Type 2 diabetes mellitus with hypoglycemia without coma; E11.22 Type 2 diabetes mellitus with diabetic chronic kidney disease; E11.65 Type 2 diabetes mellitus with hyperglycemia; E78.00 Pure hypercholesterolemia, unspecified; E03.9 Hypothyroidism, unspecified
CPT/HCPCS: 36415; 84439; 84443